=== PATIENT | male | born 1975 | race Caucasian/White ===

== ENCOUNTER → 2017-08-27 08:03 | Outpatient (CLI) | payer OTHER, SELFPAY | PROVIDERS: PCP Family Medicine; Visit Provider Internal Medicine | DX: R42 Dizziness and giddiness (principal); R53.83 Other fatigue; R07.9 Chest pain, unspecified; R06.00 Dyspnea, unspecified; R00.1 Bradycardia, unspecified; R40.0 Somnolence; R00.2 Palpitations | CPT/HCPCS: 93017 ==

== ENCOUNTER → 2018-05-05 11:30 | Outpatient (CLI) | payer OTHER, SELFPAY ==
--- NOTE | 2018-05-05 11:34 | XR_ITS ---
XR chest 2V HISTORY: ITS.REASON: COUGH ORDERING PHYSICIAN: Sofy Maldonado PATIENT AGE: 42 years COMPARISON: 05/05/2017 FINDINGS: There is a loop recorder device present. The cardiomediastinal silhouette and pulmonary vascularity are within normal limits. The lungs are clear without infiltrates, suspicious nodules, or pleural effusions. No acute bony abnormalities. IMPRESSION: Negative chest, no acute finding
== END ==
PROVIDERS: PCP Family Medicine; Visit Provider Nurse Practitioner
DX: R05 Cough (principal)
CPT/HCPCS: 71046

== ENCOUNTER → 2019-01-13 14:04 | Outpatient (CLI) | payer OTHER, SELFPAY ==
--- NOTE | 2019-01-13 14:06 | CA_ITS ---
PROCEDURE: 2-D M-mode and color Doppler study INDICATIONS FOR THE TEST: Chest pain COPD Heart Murmur Tobacco Smoking+ Palpitations+ Fatigue Syncope Edema Hypertension Diabetes Mellitus Rheumatic Fever SOB+WING+Obesity Hyperlipidemia Family History HD Additional History bradycardia, loop recorder, ablation x 4, known ASD bubble study ordered PATIENT INFORMATION HEIGHT: 69 WEIGHT:137 GENDER: Male B/P: 118/77 2-D/M-MODE INTERPRETATION: 2-D MEASUREMENTS OBSERVED VALUES IN CMS Right Ventricular Dimension (RVDd) 1.5 Interventricular Septum (Thickness)(IVsd) 0.6 Left Ventricular Internal Dimensions(LVIDd) 5.7 Left Ventricular Posterior Wall (Thickness)(LVPWd) 0.6 Aortic Root 2.7 Aortic Cusp Separation 2.0 Left Atrial Dimensions (LAD) 2.9 2D 1. Left atrium is normal size, left ventricle is normal size, there is no concentric left ventricular hypertrophy, visually estimated ejection fraction 55% with no regional wall motion abnormality. 2. The right atrium and right ventricle are normal size and contractility. 3. The aortic valve is minimally thickened and fibrosed. 4. The intra-atrial septum is mobile. 5. The mitral and tricuspid valvular grossly normal. 6. The pulmonic valve is poorly visualized. 7. No significant pericardial effusion noted. DOPPLER INTERROGATION: Doppler interrogation of the aortic, mitral and tricuspid valvular presence of mild mitral and tricuspid regurgitation, tricuspid regurgitation jet velocity for calculation of the right ventricular systolic pressure, agitated saline contrast study identifies right to left shunt, this is likely secondary to patent foramen ovale, if clinically indicated transesophageal echocardiogram is recommended for further evaluation of the intra-atrial septum. CONCLUSION: 1. Normal left ventricular size, preserved left ventricular systolic function, visually estimated ejection fraction 55% with no regional wall motion abnormality, diastolic parameters are within normal range. 2. Mild mitral and tricuspid regurgitation. 3. The intra-atrial septum is mobile, agitated 7 contrast study identifies right to left shunt, this is likely secondary to patent foramen ovale, if clinically indicated transesophageal echocardiogram is recommended for further evaluation of the intra-atrial septum. 4. No significant pericardial effusion noted.
== END ==
PROVIDERS: PCP Family Medicine; Visit Provider Urology
DX: R00.1 Bradycardia, unspecified (principal); R00.2 Palpitations
CPT/HCPCS: 93306

== ENCOUNTER → 2019-04-27 10:59 | Outpatient (CLI) | payer OTHER, SELFPAY ==
--- NOTE | 2019-04-27 11:03 | XR_ITS ---
PROCEDURE: XR FOOT WT BEARING RT 3V CLINICAL INDICATION: Pain. COMPARISON: No exams were available for comparison FINDINGS: First MTP joint shows moderate hallux valgus angulation without erosions. There is some medial prominence of soft tissues without radiopaque foreign body. The remainder of the right foot is normal. IMPRESSION: No acute process. First MTP joint hallux valgus angulation with some medial soft tissue prominence perhaps edema. There are no erosions to suggest gout at this time although correlate clinically. Dictated by: Edwardo Pino 04/27/2019 12:16 Electronically signed by Edwardo Pino in [place] 04/27/2019 12:16
--- NOTE | 2019-04-27 11:03 | XR_ITS ---
PROCEDURE: XR FOOT WT BEARING LT 3V CLINICAL INDICATION: pain COMPARISON: No exams were available for comparison FINDINGS: No fracture or dislocation. No lytic or blastic change. There is normal mineralization. The joint spaces are well-preserved. No significant degenerative/arthritic changes. No erosive changes evident. Other findings:None. IMPRESSION: No acute findings. Dictated by: Edwardo Pino 04/27/2019 12:17 Electronically signed by Edwardo Pino in [facility] 04/27/2019 12:17
== END ==
PROVIDERS: PCP Family Medicine; Visit Provider Podiatrist
DX: M79.672 Pain in left foot (principal); M79.671 Pain in right foot
CPT/HCPCS: 73630

== ENCOUNTER → 2019-08-20 16:31 | Outpatient (CLI) | payer OTHER, SELFPAY ==
--- NOTE | 2019-08-20 16:38 | XR_ITS ---
PROCEDURE: XR CHEST 2V CLINICAL HISTORY: 1ST [facility] EXOSTOSIS COMPARISON: CXR CHEST(2 VIEWS-NOT PORTABLE) from 10/03/2016 CXR CHEST(2 VIEWS-NOT PORTABLE) from 05/05/2017 CXR2V XR chest 2V from 05/05/2018 FINDINGS: The cardiomediastinal silhouette and pulmonary vascularity are within normal limits. The lungs are clear without infiltrates, suspicious nodules, or pleural effusions. No acute bony abnormalities. IMPRESSION: No acute findings. Dictated by: Alexys Moore 08/20/2019 18:12 Electronically signed by Alexys Moore in [facility] 08/20/2019 18:12
--- NOTE | 2019-08-20 16:38 | XR_ITS ---
PROCEDURE: XR FOOT WT BEARING RT 3V CLINICAL INDICATION: 1ST [facility] EXOSTOSIS COMPARISON: XR FOOT WT BEARING LT 3V from 04/27/2019 XR FOOT WT BEARING RT 3V from 04/27/2019 FINDINGS: No fracture or dislocation. No lytic or blastic change. There is normal mineralization. There is mild hallux valgus deformity and osteoarthritis at the 1st metatarsophalangeal joint. There is prominence of overlying soft tissues medial to the 1st metatarsal. There is no significant bony exostosis. Other findings:There is a sclerotic focus in the posterior calcaneus likely a benign bone island. IMPRESSION: Hallux valgus deformity with osteoarthritis and overlying focal soft tissue prominence. Dictated by: Alexys Moore 08/20/2019 18:11 Electronically signed by Alexys Moore in [place] 08/20/2019 18:11
--- NOTE | 2019-08-20 17:21 | ECG_ITS ---
APPROVED REPORT Exam: Resting ECG HR:53 bpm ECG Measurements Heart Rate 53 AXES OK 122 P 83 QRSd 82 QRS 87 QT 400 T 72 QTc 375 <Conclusion> Sinus bradycardia with sinus arrhythmia Minimal voltage criteria for LVH, may be normal variant Borderline ECG Electronically signed by : J Luis John, 08/22/2019 19:09:24
[2019-08-20 17:41] LABS: Basophils # 0.1 K/mm3 (0-0.2); Eosinophils # 0.3 K/mm3 (0.0-0.4); Eosinophils % 4.6 % (0.1-12.0); Hematocrit 45.3 % (42.0-52.0); Hemoglobin 15.4 g/dL (14.1-18.0); Lymphocytes # 2.7 K/mm3 (0.7-4.5); Lymphocytes % 38.3 % (10-50); Mean Corpuscular HGB Conc 33.9 g/dL (31.8-35.4); Mean Corpuscular Hemoglobin 29.4 pg (27.0-31.2); Mean Corpuscular Volume 86.8 fl (80-94); Mean Platelet Volume 7.2 fl (7.4-10.4); Monocytes # 0.3 K/mm3 (0.1-1.0); Monocytes % 4.1 % (1.7-9.3); Neutrophils # 3.7 K/mm3 (1.8-7.8); Platelet Count 312 K/mm3 (142-424); Red Blood Count 5.22 M/mm3 (4.60-6.20); Red Cell Distribution Width 12.6 % (11.5-17.5); White Blood Count 7.1 K/mm3 (4.8-10.8)
[2019-08-20 18:30] LABS: Alanine Aminotransferase 18 U/L (12-78); Albumin Level 4.4 gm/dL (3.4-5.0); Albumin/Globulin Ratio 1.5 (1.1-1.8); Alkaline Phosphatase 77 U/L (46-116); Anion Gap 16.2 mEq/L (5-15); Aspartate Amino Transferase 24 U/L (15-37); Bilirubin,Total 0.5 mg/dL (0.2-1.0); Blood Urea Nitrogen 14 mg/dL (7-18); Calcium 9.4 mg/dL (8.5-10.1); Carbon Dioxide 25 mmol/L (21.0-32.0); Chloride 103 mmol/L (98-107); Creatinine,Serum 0.94 mg/dL (0.70-1.30); Estimated Glomerular Filt Rate 88 ml/min (>60); GFR (African American) 106 ML/MIN (>60); Globulin 2.9 gm/dl (1.3-3.2); Glucose 91 mg/dL (74-106); Potassium 4.2 mmoL/L (3.5-5.1); Sodium 140 mmol/L (136-145); Total Protein,Serum 7.3 gm/dL (6.4-8.2)
[2019-08-22 09:45] LABS: Vitamin D 25 Hydroxy 22.3 ng/mL (30.0-100.0)
[2019-08-29 17:03] LABS: Nicotine 15.3
[2019-08-29 17:04] LABS: Cotinine 385.5
== END ==
LOC: RAD 16:33
PROVIDERS: PCP Family Medicine; Visit Provider Podiatrist
DX: Z01.818 Encounter for other preprocedural examination (principal); M79.671 Pain in right foot; M20.11 Hallux valgus (acquired), right foot; M89.9 Disorder of bone, unspecified
CPT/HCPCS: 36415; 71046; 73630; 80053; 80323; 82652; 85025; 93005

== ENCOUNTER → 2019-09-29 09:30 | Outpatient (CLI) | payer BC, SELFPAY ==
--- NOTE | 2019-09-29 09:34 | XR_ITS ---
PROCEDURE: XR FOOT WT BEARING RT 3V CLINICAL INDICATION: post-op Follow-up surgery COMPARISON: XR FOOT WT BEARING LT 3V from 04/27/2019 XR FOOT WT BEARING RT 3V from 08/20/2019 XR FOOT RT MIN 3V from 08/26/2019 XR FOOT RT 2V from 08/26/2019 FINDINGS: The splint has been removed. Status post 1st metatarsal tarsal fusion with medial bone plate. There is an oblique screw through the medial cuneiform head of 1st metatarsal into the base of the 2nd metatarsal. There is some faint lucency around the screw at the 2nd metatarsal. This is of questionable clinical significance. An additional oblique screw is present into the 1st metatarsal tarsal region Other findings:None. IMPRESSION: Good alignment status post midfoot fusion as described above. There is faint lucency around the distal aspect of the screw within the 2nd metatarsal. Follow-up recommended Dictated by: Arthur Wong MD 09/29/2019 11:40 Electronically signed by Arthur Wong MD in [place] 09/29/2019 11:40
== END ==
PROVIDERS: PCP Family Medicine; Visit Provider Podiatrist
DX: Z98.890 Other specified postprocedural states (principal); M20.11 Hallux valgus (acquired), right foot
CPT/HCPCS: 73630

== ENCOUNTER 2019-10-07 14:57 | Outpatient (RCR) | payer BC, SELFPAY ==
--- NOTE | 2019-10-07 15:45 | HMH.PTOPEV ---
PT Outpatient Evaluation Rehab PT Outpatient Evaluation Start: 10/07/19 15:20 Freq: Status: Active Protocol: Document 10/07/19 15:20 ADONISANDREW (Rec: 10/07/19 15:45 SHANELLEANSHU [id number]) Electronically Signed By Kalen Rogers, PT 10/07/19 15:20 Outpatient Therapy Subjective History Subjective History This is the initial Physical Therapy evaluation for Wesley Joyce. Pt is a 44 y/ o male referred to PT s/p R foot bunionectomy and fore- foot fusion. Pt reports sx was 08/26/19. Pt reports he was allowed to start FWB in boot last week. Pt states DPM has allowed him to switch between CAM boot and regular shoe at tolerance. Chief Complaint Pain,Stiff Symptom Type Ache,Throb Symptoms Relieved By Rest/Positioning Symptoms Aggravated By Standing,Physical Activity, Walking Prior Functional Limitations None,Sleeping Current Functional Limitations Recreation Activity,Walking, Stairs Symptom Description Intermittent Level of pain today (0-10) 2 Pain scale - at its best (0-10) 0 Pain scale - at its worst (0-10) 6 Ankle/Foot Eval Gait Observation General Gait Pattern Observation Antalgic Gait Palpation Tenderness right Ankle/Foot Palpation Findings Tenderness Ankle/Foot Palpation Overall Comment TTP along incision and forefoot ROM Ankle/Foot Dorsiflexion w/Knee Extended 5 Active Range Motion (degrees) Ankle/Foot Plantar Flexion Active Range 25 of Motion (degrees) Ankle/Foot Eversion Active Range of 10 Motion (degrees) Ankle/Foot Inversion Active Range of 20 Motion (degrees) Outpatient Therapy Assessment Impairments Problems/Impairmments Palpation Tenderness,Impaired Range of Motion,Impaired Strength,Impaired Gait Pattern ,Impaired Walking,Impaired Standing,Impaired Stair Climbing,Impaired Stepping on Uneven Surface,Impaired Recreational Activities, Impaired Work Activities, Subjective C/O Pain,Impaired Self Care/Self Management Prognosis Rehab Potential Fair Clinical Impression Consistent with Diagnosis Yes Short Term Goals
== END 2019-10-07 15:45 | disposition home or self-care (01) ==
LOC: PT 14:57
PROVIDERS: PCP Family Medicine; Visit Provider Podiatrist
DX: M20.11 Hallux valgus (acquired), right foot (principal); Z98.890 Other specified postprocedural states; T81.49XA Infection following a procedure, other surgical site, initial encounter
CPT/HCPCS: 97163

== ENCOUNTER → 2019-11-03 09:09 | Outpatient (CLI) | payer BC, SELFPAY ==
--- NOTE | 2019-11-03 09:14 | XR_ITS ---
PROCEDURE: XR FOOT WT BEARING RT 3V CLINICAL INDICATION: post-op The follow-up surgery COMPARISON: XR FOOT WT BEARING RT 3V from 04/27/2019 FINDINGS: Prior fusion of the 1st metacarpal-carpal joint as previously described. No change in the bony hardware with good alignment. Lucency once again noted at the oblique screw within the base of the 2nd metatarsal not significantly changed. There is also a lucency involving the mid to distal 2nd metatarsal shaft and could be due a fracture The joint spaces are well-preserved. No significant degenerative/arthritic changes. No erosive changes evident. Other findings:None. IMPRESSION: 1. No change status post 1st metatarsal tarsal fusion 2. Faint lucency at the junction of the mid distal 3rd of the 2nd metatarsal suggesting a nondisplaced fracture Dictated by: Arthur Wong MD 11/03/2019 11:07 Electronically signed by Arthur Wong MD in [place] 11/03/2019 11:07
== END ==
PROVIDERS: PCP Family Medicine; Visit Provider Podiatrist
DX: S93.491D Sprain of other ligament of right ankle, subsequent encounter (principal); M25.571 Pain in right ankle and joints of right foot; Z98.890 Other specified postprocedural states
CPT/HCPCS: 73630

== ENCOUNTER → 2020-01-15 12:48 | Outpatient (CLI) | payer OTHER, SELFPAY | PROVIDERS: PCP Family Medicine; Visit Provider Internal Medicine | DX: R42 Dizziness and giddiness (principal); R06.00 Dyspnea, unspecified; R00.1 Bradycardia, unspecified; M25.571 Pain in right ankle and joints of right foot; S93.491A Sprain of other ligament of right ankle, initial encounter; Z72.0 Tobacco use | CPT/HCPCS: 93306 ==

== ENCOUNTER 2020-08-08 11:19 | Day surgery (SDC) | payer OTHER, SELFPAY ==
[2020-08-08 11:35] VITALS: BMI 21.2
[2020-08-08 11:37] VITALS: RESP 20; TEMP 36.6; O2SAT 98
[2020-08-08 12:00] VITALS: PULSE 50
[2020-08-08 12:35] VITALS: BP 144/79; PULSE 50; RESP 20
--- NOTE | 2020-08-08 12:50 | P.PCN_ITS ---
[facility] Loop Recorder Date: 08/08/20 Time: 12:00 Procedure Performed:: Removed existing [employer] loop recorder due to end-of-life. Implanted [employer] loop recorder Indication:: Symptomatic Bradycardia after ablation for Atrial fibrillation Atrial fibrillation monitoring Technique:: Patient was brought to the cardiac Operations Chief. After informed consent obtained, 1% lidocaine with epinephrine was used to anesthetize the site along the left anterior aspect of the chest near the sternal border. Using a scalpel, the existing Medtronic device was dissected and exposed and using forceps the device was subsequently removed. Using the supplied preloaded apparatus, the [employer] loop recorder was placed subcutaneously without difficulty. Following the deployment of the loop recorder interrogation of the device was performed to ensure appropriate voltage was being detected (1.14 mV). Once this was verified, Steri-Strips were placed over the incision and the patient was prepped to discharge home. Patient tolerated the procedure well with minimal discomfort. Impression:: Successful removal of existing loop recorder due to end-of-life and implantation of [employer] loop recorder Serial Number:: [id number] Plan:: Routine postop care
== END 2020-08-08 12:44 | disposition home or self-care (01) ==
LOC: CATHLAB 11:21
PROVIDERS: PCP Family Medicine; Visit Provider Internal Medicine
DX: Z45.09 Encounter for adjustment and management of other cardiac device (principal); I48.0 Paroxysmal atrial fibrillation; Z72.0 Tobacco use; R00.1 Bradycardia, unspecified; Z79.899 Other long term (current) drug therapy
CPT/HCPCS: 33285

== ENCOUNTER 2020-08-24 09:53 | Day surgery (SDC) | payer OTHER, SELFPAY ==
[2020-08-24 10:13] VITALS: BMI 21.1
[2020-08-24 10:31] VITALS: BP 126/76; PULSE 52; RESP 13; TEMP 36.6; O2SAT 96
[2020-08-24 10:39] VITALS: PULSE 54
[2020-08-24 11:06] VITALS: BP 157/96; PULSE 62; RESP 12; O2SAT 97
[2020-08-24 11:09] VITALS: PULSE 67
--- NOTE | 2020-08-24 15:28 | P.PCN_ITS ---
[facility] Loop Recorder Date: 08/24/20 Time: 10:45 Procedure Performed:: Removed existing [employer] loop recorder due to exposed device through the incision. Implanted new [employer] loop recorder Indication:: Exposed loop recorder Symptomatic Bradycardia after ablation for Atrial fibrillation Atrial fibrillation monitoring Technique:: Patient was brought to the cardiac Optics Engineer. After informed consent obtained, 1% lidocaine with epinephrine was used to anesthetize the site along the left anterior aspect of the chest near the sternal border. Using a scalpel, the existing [employer] device was dissected and exposed, then using forceps the device was subsequently removed. Using the supplied preloaded apparatus, the [employer] loop recorder was placed subcutaneously without difficulty. Following the deployment of the loop recorder interrogation of the device was performed to ensure appropriate voltage was being detected. Once this was verified, Steri-Strips were placed over the incision and the patient w as prepped to discharge home. Patient tolerated the procedure well with minimal discomfort. Impression:: Successful removal of existing loop recorder due to exposure of the device through opened incision and implantation of new [employer] loop recorder. Serial Number:: [id number] Plan:: Routine postop care
== END 2020-08-24 11:10 ==
LOC: CATHLAB 09:54
PROVIDERS: PCP Family Medicine; Visit Provider Internal Medicine
DX: Z45.09 Encounter for adjustment and management of other cardiac device (principal); R00.1 Bradycardia, unspecified; I48.0 Paroxysmal atrial fibrillation; Z72.0 Tobacco use
CPT/HCPCS: 33285

== ENCOUNTER → 2020-09-08 11:20 | Outpatient (CLI) | payer OTHER, SELFPAY ==
--- NOTE | 2020-09-08 11:23 | XR_ITS ---
PROCEDURE: XR FOOT WT BEARING RT 3V CLINICAL INDICATION: pain COMPARISON: CR XR FOOT RT MIN 3V from 08/26/2019 CR XR FOOT RT 2V from 08/26/2019 CR XR FOOT WT BEARING RT 3V from 09/29/2019 CR XR FOOT WT BEARING RT 3V from 11/03/2019 FINDINGS: Mild hallux valgus which appears worse. Cortical regularity involves the distal and lateral aspect of the 1st metatarsal and may be due to prior bunionectomy. Soft tissue swelling is present at this region. Prior fusion of the 1st tarsometatarsal junction/Lapidus procedure. The oblique screw coursing at the base of the 1st metatarsal into the base of the 2nd metatarsal is withdrawing by approximately 6 mm and it is no longer flush with the bone. At the distal aspect of the screw there is a zone of lucency consistent with loosening. IMPRESSION: Prior Lapidus bunionectomy with hallux valgus Loosening of the screw between the base of the 1st and 2nd metatarsals Dictated by: Arthur Wong MD 09/09/2020 05:47 Arthur Wong MD in [place] 09/09/2020 05:47
== END ==
LOC: RAD 11:22
PROVIDERS: PCP Family Medicine; Visit Provider Podiatrist
DX: M79.673 Pain in unspecified foot (principal)
CPT/HCPCS: 73630

== ENCOUNTER → 2020-09-12 13:33 | Outpatient (CLI) | payer OTHER, SELFPAY ==
--- NOTE | 2020-09-12 13:33 | CT_ITS ---
PROCEDURE: CT FOOT RT WO CON CLINICAL HISTORY: pre op planning, fracture eval, hardware failure COMPARISON: CR XR FOOT WT BEARING RT 3V from 04/27/2019 CR XR FOOT RT MIN 3V from 08/26/2019 CR XR FOOT RT 2V from 08/26/2019 CR XR FOOT WT BEARING RT 3V from 11/03/2019 CR XR FOOT WT BEARING RT 3V from 09/08/2020 TECHNIQUE: Axial images obtained with sagittal and coronal reformats. All CT scans at the facility use one or more dose reduction, viz: automated exposure control, ma/kV adjustment per patient size (including targeted exams where dose is matched to indication, i.e. head), or iterative reconstruction technique. 3D rendering was performed. FINDINGS: There is redemonstration of fixation hardware across the medial cuneiform to the base of the 1st metatarsal. The oblique screw which projects from posterior medially projects through the lateral cortex of the base of the 1st metatarsal and erodes bone at the base of the 2nd metatarsal. Of the fixation screw head is from the underlying bone by approximately 6 millimeters as shown on recent x-ray. There is complete bony fusion across the medial cuneiform to the base of the 1st metatarsal. There is mild 1st metatarsal phalangeal hallux valgus. The there are scattered benign bone islands. IMPRESSION: Complete bony fusion across the tarsal metatarsal joint. Oblique screw displaced medially with an erosion at the tip within the base of the 2nd metatarsal. Dictated by: Eileen Cuenca 09/12/2020 19:29 Eileen Cuenca in [place] 09/12/2020 19:29
--- NOTE | 2020-09-12 14:08 | XR_ITS ---
PROCEDURE: XR CHEST 2V CLINICAL HISTORY: NICOTINE USE Preop clearance COMPARISON: CR CXR CHEST(2 VIEWS-NOT PORTABLE) from 05/05/2017 CR CXR2V XR chest 2V from 05/05/2018 CR XR CHEST 2V from 08/20/2019 FINDINGS: The cardiomediastinal silhouette and pulmonary vascularity are within normal limits. The lungs are clear without infiltrates, suspicious nodules, or pleural effusions. No acute bony abnormalities. The cardiac loop recorder projects within the cardiac apex. IMPRESSION: No acute findings. Dictated by: Eileen Cuenca 09/12/2020 19:08 Eileen Cuenca in [place] 09/12/2020 19:08
--- NOTE | 2020-09-12 14:41 | ECG_ITS ---
APPROVED REPORT Exam: Resting ECG HR:57 bpm ECG Measurements Heart Rate 57 AXES LA 118 P 85 QRSd 92 QRS 86 QT 398 T 66 QTc 387 Conclusion Sinus bradycardia Otherwise normal ECG Electronically signed by : J Luis John, 09/12/2020 17:36:43
[2020-09-12 15:12] LABS: Basophils % 0.6 % (0.1-2.0); Eosinophils # 0.3 K/mm3 (0.0-0.4); Eosinophils % 4.2 % (0.1-12.0); Hematocrit 44.7 % (42.0-52.0); Hemoglobin 14.9 g/dL (14.1-18.0); Lymphocytes # 2.5 K/mm3 (0.7-4.5); Lymphocytes % 34.7 % (10-50); Mean Corpuscular HGB Conc 33.4 g/dL (31.8-35.4); Mean Corpuscular Hemoglobin 28.9 pg (27.0-31.2); Mean Corpuscular Volume 86.4 fl (80-94); Mean Platelet Volume 7.1 fl (7.4-10.4); Monocytes # 0.3 K/mm3 (0.1-1.0); Monocytes % 4.8 % (1.7-9.3); Neutrophils % 55.7 % (37.0-80.0); Platelet Count 312 K/mm3 (142-424); Red Blood Count 5.17 M/mm3 (4.60-6.20); Red Cell Distribution Width 13.6 % (11.5-17.5); White Blood Count 7.2 K/mm3 (4.8-10.8)
[2020-09-12 15:50] LABS: Chloride 105 mmol/L (98-107); Potassium 4.4 mmoL/L (3.5-5.1); Sodium 139 mmol/L (136-145)
[2020-09-12 15:53] LABS: Alanine Aminotransferase 21 U/L (12-78); Albumin Level 4.8 g/dl (3.5-5.0); Albumin/Globulin Ratio 1.5 (1.1-1.8); Alkaline Phosphatase 85 U/L (38-126); Anion Gap 10.4 mEq/L (5-15); Aspartate Amino Transferase 38 U/L (17-59); Bilirubin,Total 0.5 mg/dl (0.2-1.3); Blood Urea Nitrogen 14 mg/dl (9-20); Carbon Dioxide 28 mmol/L (22.0-30.0); Estimated Glomerular Filt Rate 92 ml/min (>60); GFR (African American) 111 ML/MIN (>60); Globulin 3.1 g/dL (1.3-3.2); Total Protein,Serum 7.9 g/dl (6.3-8.2)
[2020-09-12 15:54] LABS: Calcium 10.3 mg/dl (8.4-10.2); Glucose 95 mg/dl (74-100)
[2020-09-12 15:55] LABS: Erythrocyte Sedimentation Rate 7 mm/hr (0-15)
[2020-09-12 15:59] LABS: C-Reactive Protein 2.1 mg/L (0-4)
[2020-09-12 16:10] LABS: 25-OH Vitamin D, Total 27.5 ng/mL (30-100)
== END ==
PROVIDERS: PCP Family Medicine; Visit Provider Podiatrist
DX: M79.671 Pain in right foot (principal); T84.84XA Pain due to internal orthopedic prosthetic devices, implants and grafts, initial encounter; T84.9XXA Unspecified complication of internal orthopedic prosthetic device, implant and graft, initial encounter; Z20.818 Contact with and (suspected) exposure to other bacterial communicable diseases; E55.9 Vitamin D deficiency, unspecified
CPT/HCPCS: 36415; 71046; 73700; 80053; 80323; 82306; 85025; 85651; 86140; 93005

== ENCOUNTER → 2020-09-21 11:30 | Outpatient (CLI) | payer OTHER, SELFPAY ==
[2020-09-21 13:48] LABS: Coronavirus 19 IgG Antibody Negative (Negative); Coronavirus 19 IgM Antibody Negative (Negative)
== END ==
PROVIDERS: Visit Provider Podiatrist
DX: Z01.818 Encounter for other preprocedural examination (principal); Z20.822 Contact with and (suspected) exposure to COVID-19; M79.671 Pain in right foot; T84.84XD Pain due to internal orthopedic prosthetic devices, implants and grafts, subsequent encounter
CPT/HCPCS: 36415; 86328

== ENCOUNTER 2020-09-23 08:10 | Day surgery (SDC) | payer OTHER, SELFPAY ==
[2020-09-20 11:00] VITALS: BMI 19.8
[2020-09-23] VITALS (11 sets, daily range): BP systolic 109–153; BP diastolic 52–90; PULSE 48–62; RESP 12–18; TEMP 36.4–43; O2SAT 96–99
--- NOTE | 2020-09-23 09:08 | HMH.ANESCL ---
[facility] Anesthesia Checklist - Patient Identification Patient Identification: Arm Band - Structural Data Admitted From: Home Planned Operative Procedure/s: right foot hardware removal Consent for Planned Operative Procedure(s) Verified: Yes Verified Documents: Surgical Consent, History and Physical - NPO Status Verified Time NPO: 00:00 - Additional verifications Anesthesia Reactions: No Hx Blood Transfusions: No Blood Transfusion Reaction: No - Airway Assessment C-Spine Mobility Assessed: Yes (mp2) TMJ Mobility Assessed: Yes Dentition: Good Dentition - Neurological Assessment Level of Consciousness: Awake, Alert - Anesthesia Plan Anesthesia Risk discussed: Yes Anesthesia Plan: Verified ASA Class: II Anesthesia Type: General w/block (Popliteal/saphenous. Risks/benefits of nerve block explained. Pt verbalizes understanding) [facility] History I have reviewed the patient's past medical history: Yes Medical History: Reports:: Atrial Fibrillation, Depression, Hyperlipidemia, Palpitations, Valvular Heart Disease Denies:: Cancer, Diabetes Mellitus Type 1, Diabetes Mellitus Type 2, Internal Pacemaker, MRSA, Seizures *Have you ever received a pneumonia vaccine?: No *Have you received a flu vaccine this season?: No Other Medical History: Denies: Blood Transfusion Reaction Anesthesia experience/problems:: nac Laterality Cases: Bilateral: Other Other Surgeries: Yes: Other. No: Pacemaker Amputation: No Fractures: Yes - *Social History Last grade of school completed: High school graduate Smoking Status: Current every day smoker Tobacco Type: cigarettes # Packs/Day (cigarettes): 1 Alcohol Intake: never Alcohol Intake Frequency:: other Substance Use Type: denies use *Occupational Status:: employed Housing: house Household Members: family *Travel in the last 8 weeks: None - Psychiatric History Pschychiatric History:: Reports:: Depression Family Hx:: No significant family history
--- NOTE | 2020-09-23 10:30 | HMH.OPNOTE ---
Date of procedure: 09/23/20 Pre-op Diagnosis:: 1. Right hallux valgus 2. Right hallux interphalangus 3. Right foot s/p lapidus bunionectomy on 08/26/19 4. Right foot retained orthopedic hardware 5. Painful hardware, hardware failure Post-op Diagnosis:: Same Procedure performed:: 1. Right foot hardware removal 2. Right revision of Lapidus bunionectomy 3. Right dale osteotomy 4. Right application of injectable graft 5. Right application of posterior splint Surgeon:: Jayashree Don DPM UNDERWEAR CUTTER:: Gurjit Gomez Anesthesia: GETA, regional (right popliteal nerve block) Estimated blood loss (mL): 10 Clinical Note:: Patient is a 45-year-old male who presents with the start of recurrent right foot bunion. He had surgery on 08/26/19, S/p Right lapidus bunionectomy, exostectomy, gastrocnemius recession. Postop course was relatively uneventful. Recent imaging, x-rays 3 views right foot weightbearing taken 08/29/2020, evaluated by myself. Images were compared from x-rays taken 11/03/19 compared 09/29/19, 08/26/19. X-rays show hardware intact but the medial screw is backing out from 2nd metatarsal base. Fusion site filling in with bone. Good alignment status post midfoot fusion. Incisions have healed. Patient reports no issues until June 2020. He states he noticed some swelling to the midfoot. He reports of the last month he noticed the 2 started leaning and can feel something hard . I explained that he is feeling the head of the screw which will need to be removed. We discussed reasons for hardware failure. I explained that although on the x-ray a screw does not appear to be broken, there may be some fracturing. I explained hardware failure can be due to: Infection, delayed or nonunion as well as trauma and fracturing at the fusion site. We discussed surgery planning visit for hardware removal and revision of the Lapidus bunionectomy. Recommend patient use the bunion sleeve. Ice, elevate and Motrin for pain and swelling. Call office with any questions or concerns. I recommended a CT scan to evaluate for fusion vs infection. CT right foot indications: History of right Lapidus bunionectomy 08/26/2019. Patient now has hardware failure and the screw backing out with lucency noted at the second metatarsal base. CT was to evaluate for fracture, partial or nonunion of the arthrodesis site. The patient has tried modification of shoe gear, taping, strapping, inserts, ice elevation, NSAIDs. After a long discussion with the patient in regards to the conservative versus surgical treatment for the bunion deformity, the patient has elected to proceed with surgery because they have failed conservative treatment and failed surgery and continue to have pain and worsening symptoms affecting daily activities. The patient has been instructed on the planned procedure, all risk versus benefits of the procedure to include bleeding, infection, nerve and blood vessel damage, need for further surgery, delay in healing of soft tissue or bone, failure of bones to heal, non-union, mal-union, prolonged pain and recovery, prolonged swelling, CRPS/RSD, DVT and anesthetic complications. No guarantees were given. All questions fully answered. The patient verbalized understanding and agreed to proceed with surgery. Written consent was obtained. Medical clearance per PCP and cardiac clearance granted. Necessary labs and pre-op testing ordered: CBC, CMP, EKG, CXR. Rx for Fairchance 7.5/325 # 28, Zofran 4mg, Motrin 800mg # 60. Operative findings:: Right foot screw backing out of the medial second metatarsal base. Palpable head noted to the medial first metatarsal. No malodor, drainage or purulence noted. No signs of infection. First metatarsal cuneiform joint fusion solid with no evidence of malunion or nonunion. Bunion reduced and refixated. Hallux interphalangeus reduced. Operative note:: On this date and time the patient was deemed an appropriate surgical candidate. With informed consent signed, patient given pre
--- NOTE | 2020-09-23 12:40 | HMH.ANESI ---
[facility] Anesthesia Record Part I Intake, IV Amount: 1,500 Estimated blood loss (mL): 0 Urine output (mL): 0 Blood Pressure: 117/75 SaO2: 96 Pulse Rate: 62 Respiratory Rate: 12 Temperature: 98.6 F Patient is:: Awake, Stable Stable to PACU at:: 12:35
--- NOTE | 2020-09-23 12:45 | XR_ITS ---
PROCEDURE: XR FOOT RT MIN 3V CLINICAL INDICATION: Post op bunion Follow-up surgery COMPARISON: CR XR FOOT WT BEARING RT 3V from 09/29/2019 CR XR FOOT WT BEARING RT 3V from 11/03/2019 CR XR FOOT WT BEARING RT 3V from 09/08/2020 CR XR FOOT RT 2V from 09/23/2020 FINDINGS: There is a splint in place. Status post 1st and 2nd metatarsal tarsal fusion. There appears to be 2 new transverse screws at the base of the 1st metatarsal extending into the proximal aspect of the 2nd and even 3rd metatarsal. There is now a staple which is been placed at the proximal aspect of the proximal phalanx of the great toe.. . Posterior splint is in place. C-arm was utilized for placement the above mention prosthesis. IMPRESSION: Good alignment status post 1st and 2nd metatarsal tarsal fusion and stable at the base of the proximal phalanx of the great toe Dictated by: Arthur Wong MD 09/23/2020 15:23 Arthur Wong MD in [place] 09/23/2020 15:23
--- NOTE | 2020-09-23 16:45 | SUR.PHASEII ---
THIS RN FORGOT TO SEND DISHCARGE FOLDER HOME WITH PT AT DISCHARGE. CALL TO PT'S AND LEFT MESSAGE WITH FOLLOW UP APPT AND REMINDERS OF ALL IMPORTANT INSTRUCTIONS, LEFT CALL BACK NUMBER.
--- NOTE | 2020-09-26 11:06 | HMH.ANESII ---
[facility] Anesthesia Record Part II Discharge Time: 13:20 Destination: Surgical Day Care (OP Surgery) PACU nurse assessment reviewed?: Yes Patient Condition:: Good Anesthesia Complications:: None Swallowing reflex intact?: Yes Cyanosis?: No Blood Pressure: 120/77 Pulse Rate: 54 Temperature: 97.6 F Mental Status: Alert & Oriented Pain level:: 0 Nausea and/or vomitting:: None Intake, IV Amount: 0
[2020-09-26 11:07] VITALS: BP 120/77; PULSE 54; TEMP 36.4
== END 2020-09-23 14:10 | disposition home or self-care (01) ==
PROVIDERS: PCP Family Medicine; Visit Provider Podiatrist
PROC: (CPT 28298; principal; 2020-09-23 09:45)
DX: T84.84XA Pain due to internal orthopedic prosthetic devices, implants and grafts, initial encounter (principal); T84.213A Breakdown (mechanical) of internal fixation device of bones of foot and toes, initial encounter; M20.11 Hallux valgus (acquired), right foot
CPT/HCPCS: 28298; 73630; 87070; 87205; 96374; C1713; C1762; J2405

== ENCOUNTER → 2020-10-20 08:40 | Outpatient (CLI) | payer OTHER, SELFPAY ==
--- NOTE | 2020-10-20 08:45 | XR_ITS ---
PROCEDURE: XR FOOT WT BEARING RT 3V CLINICAL INDICATION: post-op Follow-up surgery COMPARISON: CR XR FOOT WT BEARING RT 3V from 11/03/2019 CR XR FOOT WT BEARING RT 3V from 09/08/2020 CR XR FOOT RT 2V from 09/23/2020 CR XR FOOT RT MIN 3V from 09/23/2020 FINDINGS: Postsurgical changes are present from 1st and 2nd metatarsal tarsal fusion with bony hardware in place not significantly changed. Stable at the 1st proximal phalanx is unchanged. The splint has been removed. There is good alignment. The joint spaces are well-preserved. No significant degenerative/arthritic changes. No erosive changes evident. Other findings:None. IMPRESSION: Postsurgical changes which are stable with good alignment Dictated by: Arthur Wong MD 10/20/2020 11:42 Arthur Wong MD in [place] 10/20/2020 11:42
== END ==
PROVIDERS: PCP Family Medicine; Visit Provider Podiatrist
DX: Z98.890 Other specified postprocedural states (principal); M79.671 Pain in right foot
CPT/HCPCS: 73630; 87070; 87077; 87186; 87205

== ENCOUNTER → 2020-10-20 17:08 | Outpatient (CLI) | payer OTHER, SELFPAY | PROVIDERS: Visit Provider Podiatrist | DX: M79.671 Pain in right foot (principal) | CPT/HCPCS: 87070; 87205 ==

== ENCOUNTER 2020-11-14 10:30 | Outpatient (RCR) | payer OTHER, SELFPAY ==
--- NOTE | 2020-11-03 08:44 | HMH.PTOPEV ---
PT Outpatient Evaluation Rehab PT Outpatient Evaluation Start: 11/03/20 08:31 Freq: Status: Active Protocol: Document 11/03/20 08:32 TEENA (Rec: 11/03/20 08:44 TEENA [id number]) Electronically Signed By Shad Padgett, PT 11/03/20 08:32 Outpatient Therapy Subjective History Subjective History Pt is 45 yowm who presents with post-op pain, stiffness, and edema S/P R 1st/2nd MT hardware removal and replacement performed 09/23/20 . He reports sharp pain with certain activity, but otherwise feeling better after surgery. He reports he had a screw backing out that needed to be replaced, after bunionectomy procedure ~ 1 yr ago. He reports no significant PMH. He also reports propping of the R foot helps decrease his pain. Chief Complaint Pain,Stiff Symptom Type Sharp Symptoms Relieved By Rest/Positioning Symptoms Aggravated By Standing,Walking Prior Functional Limitations None Current Functional Limitations Standing,Walking Symptom Description Activity Dependent Level of pain today (0-10) 0 Pain scale - at its worst (0-10) 8 Ankle/Foot Eval Gait Observation General Gait Pattern Observation Antalgic Gait ROM right Ankle/Foot Dorsiflexion w/Knee Extended 0-8 Active Range Motion (degrees) Ankle/Foot Plantar Flexion Active Range 0-40 of Motion (degrees) Ankle/Foot Eversion Active Range of 0-16 Motion (degrees) Ankle/Foot Inversion Active Range of 0-33 Motion (degrees) Great Toe Metatarsophalangeal Extension 0-10 Active Range Motion (degrees) Great Toe Metatarsophalangeal Flexion 0-15 Active Range of Motion (degrees) MMT Ankle Dorsiflexion Strength Grade 5 Normal Ankle Plantarflexion Strength Grade 5 Normal Foot Eversion Strength Grade 5 Normal Foot Inversion Strength Grade 5 Normal Outpatient Therapy Assessment Impairments Problems/Impairmments Palpation Tenderness,Impaired Range of Motion,Impaired Endurance,Impaired Gait Pattern,Impaired Walking, Impaired Standing,Impaired Recreational Activities, Increased Edema,Lymphedema Present,Subjective C/O Pain, Impaired Debbie
== END 2020-11-14 10:35 | disposition home or self-care (01) ==
LOC: PT 10:30
PROVIDERS: PCP Family Medicine; Visit Provider Podiatrist
DX: Z98.890 Other specified postprocedural states; M20.11 Hallux valgus (acquired), right foot
CPT/HCPCS: 97010; 97014; 97140; 97163; 97530; 97760; G0283

== ENCOUNTER → 2020-11-24 08:03 | Outpatient (CLI) | payer OTHER, SELFPAY ==
--- NOTE | 2020-11-24 08:06 | XR_ITS ---
PROCEDURE: XR FOOT WT BEARING RT 3V CLINICAL INDICATION: post-op Follow-up surgery COMPARISON: CR XR FOOT WT BEARING RT 3V from 09/08/2020 CR XR FOOT RT 2V from 09/23/2020 CR XR FOOT RT MIN 3V from 09/23/2020 CR XR FOOT WT BEARING RT 3V from 10/20/2020 FINDINGS: Bone plate is in place at the 1st metatarsal tarsal junction with screws also extending into the base of the 2nd metatarsal and 3rd metatarsal. There is good alignment. A small staple is present at the base of the proximal phalanx of the great toe medially unchanged. IMPRESSION: No change status post prior 1st tarsal metatarsal arthrodesis Dictated by: Arthur Wong MD 11/24/2020 08:30 Arthur Wong MD in [place] 11/24/2020 08:30
[2020-11-24 10:38] LABS: Basophils # 0.1 K/mm3 (0-0.2); Basophils % 0.8 % (0.1-2.0); Eosinophils # 0.4 K/mm3 (0.0-0.4); Eosinophils % 5.3 % (0.1-12.0); Hematocrit 47.4 % (42.0-52.0); Hemoglobin 15.2 g/dL (14.1-18.0); Lymphocytes # 2.8 K/mm3 (0.7-4.5); Lymphocytes % 37.9 % (10-50); Mean Corpuscular HGB Conc 32.1 g/dL (31.8-35.4); Mean Corpuscular Hemoglobin 28.5 pg (27.0-31.2); Mean Corpuscular Volume 88.8 fl (80-94); Mean Platelet Volume 6.6 fl (7.4-10.4); Monocytes # 0.4 K/mm3 (0.1-1.0); Monocytes % 5.6 % (1.7-9.3); Neutrophils # 3.8 K/mm3 (1.8-7.8); Neutrophils % 50.4 % (37.0-80.0); Platelet Count 368 K/mm3 (142-424); Red Blood Count 5.34 M/mm3 (4.60-6.20); Red Cell Distribution Width 13.6 % (11.5-17.5); White Blood Count 7.5 K/mm3 (4.8-10.8)
[2020-11-24 11:09] LABS: Chloride 106 mmol/L (98-107); Sodium 138 mmol/L (136-145)
[2020-11-24 11:10] LABS: Potassium 4.8 mmoL/L (3.5-5.1)
[2020-11-24 11:12] LABS: Alanine Aminotransferase 17 U/L (12-78); Albumin Level 4.6 g/dl (3.5-5.0); Albumin/Globulin Ratio 1.5 (1.1-1.8); Alkaline Phosphatase 109 U/L (38-126); Anion Gap 11.8 mEq/L (5-15); Aspartate Amino Transferase 27 U/L (17-59); Bilirubin,Total 0.6 mg/dl (0.2-1.3); Blood Urea Nitrogen 15 mg/dl (9-20); Carbon Dioxide 25 mmol/L (22.0-30.0); Estimated Glomerular Filt Rate 92 ml/min (>60); GFR (African American) 111 ML/MIN (>60); Total Protein,Serum 7.6 g/dl (6.3-8.2)
[2020-11-24 11:13] LABS: Glucose 95 mg/dl (74-100)
[2020-11-24 11:18] LABS: C-Reactive Protein 1.7 mg/L (0-4)
[2020-11-24 12:35] LABS: Erythrocyte Sedimentation Rate 8 mm/hr (0-15)
== END ==
PROVIDERS: PCP Family Medicine; Visit Provider Podiatrist
DX: Z98.890 Other specified postprocedural states (principal); T81.31XA Disruption of external operation (surgical) wound, not elsewhere classified, initial encounter; M79.671 Pain in right foot
CPT/HCPCS: 36415; 73630; 80053; 85025; 85651; 86140

== ENCOUNTER → 2021-01-05 07:43 | Outpatient (CLI) | payer OTHER, SELFPAY ==
--- NOTE | 2021-01-05 07:52 | XR_ITS ---
PROCEDURE: XR FOOT WT BEARING RT 3V CLINICAL INDICATION: POST-OP Follow-up surgery COMPARISON: CR XR FOOT WT BEARING RT 3V from 04/27/2019 CR XR FOOT RT 2V from 09/23/2020 CR XR FOOT RT MIN 3V from 09/23/2020 CR XR FOOT WT BEARING RT 3V from 10/20/2020 CR XR FOOT WT BEARING RT 3V from 11/24/2020 FINDINGS: Status post 1st tarsometatarsal arthrodesis with good alignment and no evidence of hardware failure. Stable once again noted at the base of the proximal phalanx of the great toe unchanged. The joint spaces are well-preserved. No significant degenerative/arthritic changes. No erosive changes evident. Other findings:None. IMPRESSION: No change with good alignment status post 1st metatarsal tarsal arthrodesis Dictated by: Arthur Wong MD 01/05/2021 10:40 Arthur Wong MD in [place] 01/05/2021 10:40
== END ==
PROVIDERS: PCP Family Medicine; Visit Provider Podiatrist
DX: Z98.890 Other specified postprocedural states (principal); M77.41 Metatarsalgia, right foot
CPT/HCPCS: 73630

== ENCOUNTER → 2021-03-28 12:47 | Outpatient (CLI) | payer OTHER, SELFPAY ==
--- NOTE | 2021-03-28 12:51 | XR_ITS ---
PROCEDURE: XR FOOT WT BEARING RT 3V CLINICAL INDICATION: postop views No COMPARISON: CR XR FOOT RT MIN 3V from 09/23/2020 CR XR FOOT WT BEARING RT 3V from 10/20/2020 CR XR FOOT WT BEARING RT 3V from 11/24/2020 CR XR FOOT WT BEARING RT 3V from 01/05/2021 FINDINGS: Status post 1st metatarsal tarsal and 1st and 2nd and 3rd metatarsal fusion. Bony hardware remains in place with good alignment. Zone of lucency noted at the tip of the screws within the base of the 3rd metatarsal similar to the previous exam. Metallic staple noted at the proximal aspect of the proximal phalanx of the 1st toe IMPRESSION: Overall no change status post midfoot fusion Dictated by: Arthur Wong MD 03/28/2021 14:39 Arthur Wong MD in [place] 03/28/2021 14:39
== END ==
PROVIDERS: PCP Family Medicine; Visit Provider Podiatrist
DX: Z98.890 Other specified postprocedural states (principal)
CPT/HCPCS: 73630

== ENCOUNTER → 2021-08-11 08:42 | Outpatient (CLI) | payer BC, SELFPAY ==
--- NOTE | 2021-08-11 08:51 | US_ITS ---
FINAL REPORT TECHNIQUE: Ultrasound images of the testicles were obtained bilaterally. Color Doppler images were obtained. CLINICAL HISTORY: left testicular pain FINDINGS: The right testicle measures 2.4 x 4.1 x 3.3 cm. The left testicle measures 2.3 x 4.0 x 3.3 cm. Normal blood flow is identified. No testicular masses seen. There is bilateral testicular microlithiasis which is nonspecific. There are small bilateral hydroceles. A left varicocele is identified. 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 If indicated, follow-up ultrasound may be helpful. Left varicocele. Reviewed, Interpreted and Dictated by Souleymane Burnett III, MD Transcribed by Radha Tobin Authenticated by Souleymane Burnett III, MD on 08/11/2021 01:31:54 PM [facility]
== END ==
LOC: RAD 08:43
PROVIDERS: PCP Family Medicine; Visit Provider Family Medicine
DX: N45.1 Epididymitis (principal)
CPT/HCPCS: 76870

== ENCOUNTER → 2022-08-17 14:01 | Outpatient (CLI) | payer BC, SELFPAY ==
--- NOTE | 2022-08-17 14:06 | XR_ITS ---
FINAL REPORT CLINICAL HISTORY: foot pain FINDINGS: AP, oblique and lateral views of the right foot were obtained. There is no prior exam for comparison. There is no acute fracture or dislocation. There are postoperative changes from fusion of the 1st tarsometatarsal joint. Lucency is seen surrounding the surgical screws which extend into the 2nd metatarsal base up to 4 mm, loosening is not excluded. There is mild hallux valgus of the 1st metatarsophalangeal. IMPRESSION: Possible loosening as above. Reviewed, Interpreted and Dictated by Cris Alejandro MD Transcribed by Radha Tobin Authenticated and [facility]
== END ==
PROVIDERS: PCP Family Medicine; Visit Provider Podiatrist
DX: M79.671 Pain in right foot (principal); Z98.890 Other specified postprocedural states
CPT/HCPCS: 73630

== ENCOUNTER → 2022-09-13 14:00 | Outpatient (CLI) | payer BC, SELFPAY ==
--- NOTE | 2022-09-13 14:01 | MR_ITS ---
FINAL REPORT TECHNIQUE: Multi planar MR imaging was performed through the right foot. CLINICAL HISTORY: foot pain. hx foot surgery in 2020. no injury or trauma FINDINGS: There is multi joint degenerative disease. Susceptibility artifact is seen along the medial midfoot related to hardware fusion of the 1st tarsometatarsal joint. Surgical staple is seen at the base of the 1st proximal phalanx. The remaining bone marrow signal intensity is normal without edema, fracture or pathologic marrow replacement. The Lisfranc joint is intact. The Lisfranc ligament is obscured by artifact. There is a small tibiotalar joint effusion. There is nonspecific edema in the sinus tarsi. The flexor and extensor tendons to the toes are intact. The Achilles tendon is intact. The plantar fascia is normal. There is no acute soft tissue abnormality. IMPRESSION: Postoperative change of the medial med foot. Nonspecific edema in the sinus tarsi, sinus tarsi syndrome is not excluded. Reviewed, Interpreted and Dictated by Cris Alejandro MD Transcribed by Radha Tobin Authenticated and [facility]
--- NOTE | 2022-09-13 15:26 | CT_ITS ---
FINAL REPORT TECHNIQUE: Thin section axial images were obtained through the right lower extremity without contrast. Reconstruction images were obtained from the axial data. This study was performed with techniques to keep radiation doses as low as reasonably achievable (ALARA). Individualized dose reduction techniques using automated exposure control or adjustment of mA and/or kV according to the patient's size were employed. CLINICAL HISTORY: foot pain FINDINGS: There are postoperative changes of the medial mid foot from fusion. The hardware is intact. There is lucency surrounding the distal aspects of 2 surgical screws extending into the base of the 3rd metatarsal, loosening is not excluded. A surgical staple is seen at the base of the proximal phalanx of the great toe. The staple is intact. No acute fracture is identified. There is mild multi joint degenerative disease. Mild hallux valgus deformity is identified. The Lisfranc articulation is intact. No other acute osseous abnormality is identified. The remaining soft tissues are normal. IMPRESSION: Postoperative changes to the medial midfoot with lucency surrounding the distal aspects of the screws extending into the 3rd metatarsal base, loosening is not excluded. Reviewed, Interpreted and Dictated by Cris Alejandro MD Transcribed by Radha Tobin Authenticated and [facility]
== END ==
LOC: RAD 14:01
PROVIDERS: PCP Family Medicine; Visit Provider Podiatrist
DX: M79.671 Pain in right foot (principal); T84.84XD Pain due to internal orthopedic prosthetic devices, implants and grafts, subsequent encounter; T84.9XXD Unspecified complication of internal orthopedic prosthetic device, implant and graft, subsequent encounter; Z96.9 Presence of functional implant, unspecified
CPT/HCPCS: 73700; 73718

== ENCOUNTER → 2022-09-20 10:51 | Outpatient (CLI) | payer BC, SELFPAY ==
--- NOTE | 2022-09-20 10:58 | ECG_ITS ---
APPROVED REPORT Exam: Resting ECG HR:52 bpm ECG Measurements Heart Rate 52 AXES NH 132 P 80 QRSd 78 QRS 81 QT 387 T 70 QTc 367 Conclusion SINUS BRADYCARDIA VOLTAGE CRITERIA FOR LVH [MEETS CRITERIA IN ONE OF: R(aVL), S(V1), R(V5), R(V5/V6)+S(V1)] ABNORMAL ECG UNCONFIRMED REPORT Electronically signed by : J Luis John MD 09/20/2022 19:33:16
[2022-09-20 11:54] LABS: Basophils # 0.1 K/mm3 (0-0.2); Basophils % 1.3 % (0.1-2.0); Eosinophils # 0.2 K/mm3 (0.0-0.4); Eosinophils % 2.9 % (0.1-12.0); Hematocrit 47.2 % (42.0-52.0); Hemoglobin 15.4 g/dL (14.1-18.0); Lymphocytes # 2.2 K/mm3 (0.7-4.5); Lymphocytes % 27.9 % (10-50); Mean Corpuscular HGB Conc 32.6 g/dL (31.8-35.4); Mean Corpuscular Hemoglobin 28.7 pg (27.0-31.2); Mean Corpuscular Volume 87.8 fl (80-94); Mean Platelet Volume 7.2 fl (7.4-10.4); Monocytes # 0.5 K/mm3 (0.1-1.0); Monocytes % 5.8 % (1.7-9.3); Neutrophils # 4.9 K/mm3 (1.8-7.8); Platelet Count 313 K/mm3 (142-424); Red Blood Count 5.38 M/mm3 (4.60-6.20); Red Cell Distribution Width 13.5 % (11.5-17.5); White Blood Count 7.9 K/mm3 (4.8-10.8)
[2022-09-20 12:07] LABS: Alanine Aminotransferase 23 U/L (12-78); Albumin Level 4.5 g/dl (3.5-5.0); Albumin/Globulin Ratio 1.5 (1.1-1.8); Alkaline Phosphatase 86 U/L (38-126); Anion Gap 7.5 mEq/L (5-15); Aspartate Amino Transferase 32 U/L (17-59); Bilirubin,Total 0.6 mg/dl (0.2-1.3); Blood Urea Nitrogen 14 mg/dl (9-20); Calcium 9.6 mg/dl (8.4-10.2); Carbon Dioxide 24 mmol/L (22.0-30.0); Chloride 109 mmol/L (98-107); Estimated Glomerular Filt Rate 81 ml/min (>60); GFR (African American) 98 ML/MIN (>60); Glucose 89 mg/dl (74-100); Potassium 4.5 mmoL/L (3.5-5.1); Sodium 136 mmol/L (136-145); Total Protein,Serum 7.5 g/dl (6.3-8.2)
[2022-09-20 12:13] LABS: C-Reactive Protein 0.6 mg/L (0-4)
[2022-09-20 12:24] LABS: 25-OH Vitamin D, Total 31.5 ng/mL (30-100)
[2022-09-20 12:51] LABS: Erythrocyte Sedimentation Rate 1 mm/hr (0-15)
[2022-09-29 20:46] LABS: Cotinine 186.6; Nicotine 9.2
== END ==
LOC: LAB 10:52
PROVIDERS: PCP Family Medicine; Visit Provider Podiatrist
DX: Z01.818 Encounter for other preprocedural examination (principal); M79.671 Pain in right foot
CPT/HCPCS: 36415; 80053; 80323; 82306; 85025; 85651; 86140; 93005

== ENCOUNTER 2022-10-10 08:01 | Day surgery (SDC) | payer BC, SELFPAY ==
[2022-10-10] VITALS (10 sets, daily range): BP systolic 121–141; BP diastolic 74–88; PULSE 65–101; RESP 14–18; TEMP 36.2–43; O2SAT 92–98
--- NOTE | 2022-10-10 08:43 | XR_ITS ---
FINAL REPORT CLINICAL HISTORY: SURGERY PRE OP ORDER, smoker COMPARISON: 07/12/2021 FINDINGS: SINGLE-VIEW CHEST The heart size is normal. The mediastinum is normal. The lungs are clear. There is no pneumothorax. IMPRESSION: No acute cardiopulmonary process. Reviewed, Interpreted and Dictated by Souleymane Burnett III, MD Transcribed by Radha Tobin Authenticated and [facility]
--- NOTE | 2022-10-10 09:32 | P.PN_ITS ---
[facility] Disclaimer: The information contained in this section may have been updated after the patient was seen, as this information can be updated by other users. Medical History Dyspnea Edema PFO (patent foramen ovale) Tobacco abuse Surgical History H/O foot surgery History of loop recorder History of surgery Family History Other Heart disease Social History (Updated 10/10/22 @ 08:21 by Coby Ledezma RN) Smoking Status: Current every day smoker tobacco type: cigarettes packs per day: 1 years smoked: 30 second hand exposure: No alcohol intake: never counseling provided: none substance use type: denies use current occupational status: employed Travel in the last 8 weeks: None household members: family housing: house current occupation: farm and factory work current occupational exposures/hazards: No caffeine: Yes [facility] Anesthesia Checklist Patient Identification Patient Identification: Arm Band Structural Data Admitted From: Home Planned Operative Procedure/s: Right Foot Hardware Removal, Revision Bunionectomy, Hammertoe Repair Consent for Planned Operative Procedure(s) Verified: Yes Verified Documents: Surgical Consent and History and Physical NPO Status Verified Time NPO: 00:00 Additional verifications Anesthesia Reactions: No Hx Blood Transfusions: No Blood Transfusion Reaction: No Airway Assessment C-Spine Mobility Assessed: Yes TMJ Mobility Assessed: Yes Dentition: Good Dentition Neurological Assessment Level of Consciousness: Awake and Alert Anesthesia Plan Anesthesia Risk discussed: Yes Anesthesia Plan: Verified ASA Class: II Anesthesia Type: General w/block (Right Popliteal/Adductor Canal Nerve Block. Risk/benefits explained. Pt verbalized understanding)
--- NOTE | 2022-10-10 11:50 | XR_ITS ---
PROCEDURE INFORMATION: Exam: XR Right Foot Exam date and time: 10/10/2022 6:06 PM Age: 47 years old Clinical indication: Device placement; Joint fixation hardware; Additional info: Post op bunionectomy TECHNIQUE: Imaging protocol: Radiologic exam of the right foot. Views: 3 or more views. COMPARISON: SD XR FOOT RT 2V 10/10/2022 5:00 PM FINDINGS: Bones/joints: Status post bunionectomy and ORIF of the right forefoot with fixation plates and K-wire pins in place. Casting material limits visualization of fine bony detail. Soft tissues: Unremarkable. IMPRESSION: Status post bunionectomy and ORIF of the right forefoot with fixation plates and K-wire pins in place.
--- NOTE | 2022-10-10 13:10 | SUR.OPER ---
1300- Family updated per David Ledezma RN @ this time
--- NOTE | 2022-10-10 14:25 | SUR.OPER ---
Ericka KaiserRN updating pt's family at this time
--- NOTE | 2022-10-10 15:27 | SUR.OPER ---
1519- C Job RN updated family at this time
--- NOTE | 2022-10-10 16:19 | SUR.OPER ---
1600- Pt's family updated at this time per Pedro Kaiser RN
--- NOTE | 2022-10-10 17:09 | XR_ITS ---
PROCEDURE INFORMATION: Exam: ARTHRODESIS/SI JOINT/PERC/W IMAGE GUIDE/INCL PLCMNT OF INTRA ARTIC IMPLANTS Exam date and time: 10/10/2022 5:00 PM Age: 47 years old Clinical indication: Device placement; Joint fixation hardware; Prior surgery; Surgery date: 6+ months; Additional info: Orif right foot using c-arm guidance. TECHNIQUE: Imaging protocol: ARTHRODESIS/SI JOINT/PERC/W IMAGE GUIDE/INCL PLCMNT OF INTRA ARTIC IMPLANTS COMPARISON: CT FOOT RT WO CON 09/13/2022 3:29 PM FINDINGS: Intra-operative fluoroscopic images of forefoot fixation. IMPRESSION: Intra-operative fluoroscopic images of forefoot fixation.
--- NOTE | 2022-10-10 17:16 | SUR.OPER ---
Pt's family updated by Pedro Kaiser RN
--- NOTE | 2022-10-10 17:55 | EXP.ANES.I ---
[facility] Anesthesia Record Part I Anesthesia Record I Intake, IV Amount: 1,300 Estimated blood loss (mL): 50 Urine output (mL): 400 Blood Pressure: 121/74 SaO2: 95 Pulse Rate: 84 Respiratory Rate: 15 Temperature: 98.2 F Patient is:: Drowsy and Oral/Nasal airway Stable to PACU at:: 17:50
--- NOTE | 2022-10-10 18:13 | EXP.OP.NOTE ---
Date of procedure: 10/11/22 Pre-op Diagnosis:: Right hallux valgus Right bunion Right metatarsalgia Right tailor's bunionette Right hammertoes 2-5 Post-op Diagnosis:: Same Procedure performed:: Right midtarsal/tarsometatarsal arthrodesis, multiple joints Right lapidus bunionectomy, revision Right 1st MPJ arthrodesis Hardware removal Right MPJ capsulotomy Right tailor's bunionectomy Soft tissue reconstruction of angular 5th toe deformity Right HT 2-5 repair (PIPJ AD 2-4, PIPJ AP 5) Autograft calcaneal bone harvest Application of allograft Application of posterior splint Surgeon:: Jayashree Don DPM TROLLEY COACH DRIVER:: Colin Pierre Anesthesia: GETA and regional (R popliteal block) Estimated blood loss (mL): 50 Clinical Note:: Patient is a 47-year-old male with a history of multiple foot surgeries. Patient reports no issues until Mar 2022.?He states he noticed some swelling to the forefoot/midfoot and toes feeling squished together with new bunion to outside of the foot . Denies pain to the 1st TMT joint, no prominent hardware noted. Reviewed x-ray, CT, MRI with patient. History of surgeries includin08/26/19, S/p right lapidus bunionectomy, exostectomy, gastrocnemius recession and 09/23/20, S/p right foot hardware removal, revision of Lapidus bunionectomy, dale osteotomy, application of injectable graft, [place] of posterior splint. The patient has tried modification of shoe gear, taping, strapping, inserts, ice elevation, NSAIDs. After a long discussion with the patient in regards to the conservative versus surgical treatment for the bunion deformity, the patient has elected to proceed with surgery because they have failed conservative treatment and continue to have pain and worsening symptoms affecting daily activities. The patient has been instructed on the planned procedure, all risk versus benefits of the procedure to include bleeding, infection, nerve and blood vessel damage, need for further surgery, delay in healing of soft tissue or bone, failure of bones to heal, non-union, mal-union, prolonged pain and recovery, prolonged swelling, CRPS/RSD, DVT and anesthetic complications. No guarantees were given. All questions fully answered. The patient verbalized understanding and agreed to proceed with surgery. Written consent was obtained. Operative findings:: Right foot bunion recurrence noted. Digital hammertoe contractures 2 through 5. Hardware removed from the tarsometatarsal joint. Bone hard and the first TMT joint was fused. No signs of infection noted. Arthritic changes noted to the 2-3rd TMT joints. Significant fibrotic scar tissue noted to the first MPJ. Joint capsule was scarred down. There was 60% degenerative changes to the first metatarsal head with subchondral cyst noted to the medial superior aspect of the head. There was also significant scuffing and wearing noted to the inferior lateral aspect of the first metatarsal head. Tailor's bunionette appreciated laterally. Due to the revisional and complicated nature of the case, it was also medically necessary to utilize allograft combined with the autograft. Due to the revisional nature of the surgery including dissection with fibrotic scar tissue, hardware removal, revision bunion surgery combined with the multiple ancillary procedures this case took approximately 1.5 hours longer than normal. Operative note:: On this date and time, the patient was deemed an appropriate surgical candidate. With informed consent signed, the patient was taken to the operating theater after anesthesia did a regional nerve block. The patient was positioned supine. General anesthesia was induced. Tourniquet was applied to the thigh. The lower extremity was prepped and draped in normal sterile fashion. IV Ancef infused. Right calcaneal autograft bone harvest: Attention was directed to the lateral calcaneus where a an incision was mapped out. Dissection was carried down full-thickness to the level of the b
[2022-10-10 18:46] LABS: Microscopic, Urine URINE MICROSCOPIC (MICROSCOPIC)
[2022-10-10 19:42] LABS: Appearance,Urine CLEAR (Clear); Bilirubin,Urine Negative (Negative); Blood, Urine TRACE-I (Negative); Color,Urine YELLOW (Yellow); Glucose,Urine (UA) Negative (Negative); Ketones,Urine Negative (Negative); Leukocyte Esterase,Urine Negative (Negative); Nitrate,Urine Negative (Negative); Protein,Urine Negative (Negative); Urobilinogen,Urine 0.2 EU/dl (0.2)
[2022-10-10 19:53] LABS: RBC,Urine Occasional #/hpf (0-3); WBC,Urine Occasional #/hpf (0-3)
== END 2022-10-10 19:00 | disposition home or self-care (01) ==
PROVIDERS: PCP Family Medicine; Visit Provider Podiatrist
PROC: (CPT 28730; principal; 2022-10-10 09:30)
DX: M20.11 Hallux valgus (acquired), right foot (principal); M20.41 Other hammer toe(s) (acquired), right foot; M21.621 Bunionette of right foot; F17.210 Nicotine dependence, cigarettes, uncomplicated; Z79.899 Other long term (current) drug therapy; T84.89XA Other specified complication of internal orthopedic prosthetic devices, implants and grafts, initial encounter; Y83.1 Surgical operation with implant of artificial internal device as the cause of abnormal reaction of the patient, or of later complication, without mention of misadventure at the time of the procedure
CPT/HCPCS: 28730; 28308; 28270; 28313; 28285 ×4; 20900; 28297; 71045; 73620; 73630; 76000; 81001; 96374; C1713; C1762; C1776; J2405

== ENCOUNTER → 2022-10-31 09:32 | Outpatient (CLI) | payer BC, SELFPAY ==
--- NOTE | 2022-10-31 09:35 | XR_ITS ---
FINAL REPORT CLINICAL HISTORY: Postoperative right foot COMPARISON: 10/10/2022 FINDINGS: RIGHT FOOT 3 views of the right foot were obtained. Overlying cast has been removed. There are side plates and screws securing the 1st tarsometatarsal joint and 1st metatarsophalangeal joint. There also side plates and screws securing the 2nd and 3rd tarsal metatarsal joints. K-wires are seen in the 2nd through 5th digits. Soft tissues are unremarkable. IMPRESSION: Postoperative changes as above. Reviewed, Interpreted and Dictated by Parmjit Petersen MD Transcribed by Gracia Wilson Authenticated and [facility]
== END ==
PROVIDERS: PCP Family Medicine; Visit Provider Podiatrist
DX: M79.671 Pain in right foot (principal); Z98.890 Other specified postprocedural states
CPT/HCPCS: 73630

== ENCOUNTER → 2022-11-13 09:06 | Outpatient (CLI) | payer BC, SELFPAY ==
--- NOTE | 2022-11-13 09:10 | XR_ITS ---
FINAL REPORT CLINICAL HISTORY: post-op COMPARISON: October 31, 2022 FINDINGS: 3 views of the right foot were obtained. There is postoperative change of the midfoot and forefoot. There are multiple screw plates and screws. There are K-wires through the 2nd through 4th digits. There is no acute bony abnormality. IMPRESSION: Stable postoperative changes. Reviewed, Interpreted and Dictated by Souleymane Burnett III, MD Transcribed by Greg Puente Authenticated and [facility]
== END ==
PROVIDERS: PCP Family Medicine; Visit Provider Podiatrist
DX: M79.671 Pain in right foot (principal); Z98.890 Other specified postprocedural states
CPT/HCPCS: 73630

== ENCOUNTER → 2022-11-21 13:45 | Outpatient (CLI) | payer BC, SELFPAY | PROVIDERS: Visit Provider Podiatrist | DX: T81.31XA Disruption of external operation (surgical) wound, not elsewhere classified, initial encounter (principal) | CPT/HCPCS: 87070; 87205 ==

== ENCOUNTER → 2022-12-10 13:01 | Outpatient (CLI) | payer BC, SELFPAY ==
--- NOTE | 2022-12-10 13:04 | XR_ITS ---
FINAL REPORT CLINICAL HISTORY: Foot Pain, hx of multiple sxs COMPARISON: November 13, 2022 FINDINGS: 3 views of the right foot were obtained. There is postoperative change of the 2nd through 5th proximal phalanges. There has been interval removal of the K-wires. There is widespread either postoperative change with screw plate and multiple screws, stable. IMPRESSION: Postoperative changes as described. Reviewed, Interpreted and Dictated by Souleymane Burnett III, MD Transcribed by Greg Puente Authenticated and [facility]
== END ==
PROVIDERS: PCP Family Medicine; Visit Provider Podiatrist
DX: M79.671 Pain in right foot (principal); S91.301A Unspecified open wound, right foot, initial encounter
CPT/HCPCS: 73630

== ENCOUNTER 2023-01-01 09:30 | Outpatient (RCR) | payer BC, SELFPAY ==
--- NOTE | 2022-12-18 15:58 | HMH.PTOPEV ---
PT Outpatient Evaluation Rehab PT Outpatient Evaluation Start: 12/18/22 15:01 Freq: Status: Active Protocol: Document 12/18/22 15:21 SETH (Rec: 12/18/22 15:57 SETH [id number]) E-signed By Constantino Unger, PT Outpatient Therapy Subjective History Subjective History Patient is a 47 year old male presenting to outpatient PT with reports of post-surgical R foot pain S/P arthordesis, bunionectomy and R hammertoe repair 2-5 performed 10/10/22. Patients initial injury occurred after dropping a tractor lift arm on his R foot approx 20 years ago. Initial sx occurred 2019, followed by revision in 2020. Comorbidities include hx of heart ablasion x 4 and loop recorder placement. Chief Complaint Pain,Stiff Symptom Type Burning Symptoms Relieved By Rest/Positioning,Ice,Elevation Symptoms Aggravated By Standing,Physical Activity, Walking Prior Functional Limitations Standing,Walking Current Functional Limitations Housework,Standing,Recreation Activity,Walking Symptom Description Intermittent Level of pain today (0-10) 0 Pain scale - at its best (0-10) 0 Pain scale - at its worst (0-10) 6 Ankle/Foot Eval Gait Observation General Gait Pattern Observation Antalgic Gait,Decrease Weight Bear (R) Palpation Tenderness right Ankle/Foot Palpation Findings Tenderness Ankle/Foot Palpation Overall Comment Surgical incisions 2/4 ATF TTP positive ROM Ankle/Foot Dorsiflexion w/Knee Extended 3 Active Range Motion (degrees) Ankle/Foot Dorsiflexion w/Knee Extended 10 Passive Range (degrees) Ankle/Foot Plantar Flexion Active Range 50 of Motion (degrees) Ankle/Foot Plantar Flexion Passive Range 50 of Motion (degrees) Ankle/Foot Eversion Active Range of 11 Motion (degrees) Ankle/Foot Eversion Passive Range of 15 Motion (degrees) Ankle/Foot Inversion Active Range of 10 Motion (degrees) Ankle/Foot Inversion Passive Range of 25 Motion (degrees) Ankle/Foot ROM Limitations Soft Tissue Tightness,Muscle Tone Great Toe ROM Limitations Contracture,Bony Restriction MMT Ankle Dorsiflexion Strength Grade 4 Good Ankle Plantarflexion Strength Grade 4 Good Foot Eversi
== END 2023-01-01 09:35 | disposition home or self-care (01) ==
LOC: PT 09:30
PROVIDERS: PCP Family Medicine; Visit Provider Podiatrist
DX: L03.115 Cellulitis of right lower limb (principal); Z98.890 Other specified postprocedural states; G89.18 Other acute postprocedural pain
CPT/HCPCS: 97016; 97110; 97163

== ENCOUNTER → 2023-01-25 10:07 | Outpatient (CLI) | payer BC, SELFPAY ==
--- NOTE | 2023-01-25 10:08 | CT_ITS ---
FINAL REPORT TECHNIQUE: Thin section axial CT images of the right foot with coronal and sagittal reformats were performed. This study was performed with techniques to keep radiation doses as low as reasonably achievable (ALARA). Individualized dose reduction techniques using automated exposure control or adjustment of mA and/or kV according to the patient''s size were employed. CLINICAL HISTORY: foot pain COMPARISON: 12/10/2022 FINDINGS: There is new lucency in the mid navicular worrisome for nondisplaced fracture. There is presumed surgical defect in the lateral calcaneus as well as postoperative changes in the midfoot, first, second and third metatarsals with multiple screws present. There has been interval removal of 3 screws and staple. Multiple new screw plates and screws present. There are mild degenerative changes. IMPRESSION: New lucency in the mid navicular worrisome for nondisplaced fracture. Interval removal of screws and staple with multiple new screw plates and screws in place. Reviewed, Interpreted and Dictated by Souleymane Burnett III, MD Transcribed by Estrellita Boo Authenticated and [facility]
== END ==
PROVIDERS: PCP Family Medicine; Visit Provider Podiatrist
DX: M79.671 Pain in right foot (principal); Z98.890 Other specified postprocedural states
CPT/HCPCS: 73700

== ENCOUNTER → 2023-02-14 13:35 | Outpatient (CLI) | payer BC, SELFPAY ==
--- NOTE | 2023-02-14 13:37 | XR_ITS ---
FINAL REPORT CLINICAL HISTORY: right foot pain COMPARISON: 12/10/2022 FINDINGS: AP, oblique and lateral views of the right foot were obtained. There are extensive postoperative changes in the midfoot and the first metatarsal phalangeal region, which are stable. The hardware is intact. There is no acute fracture or dislocation. There is mild degenerative joint disease present. Soft tissues are normal. IMPRESSION: No acute osseous abnormality of the right foot. Extensive postoperative changes in the midfoot and the first MTP region, stable. Reviewed, Interpreted and Dictated by Cris Alejandro MD Transcribed by Katelyn Brown Authenticated and [facility]
== END ==
PROVIDERS: PCP Family Medicine; Visit Provider Podiatrist
DX: S92.251A Displaced fracture of navicular [scaphoid] of right foot, initial encounter for closed fracture (principal)
CPT/HCPCS: 73630

== ENCOUNTER 2023-03-13 08:00 | Outpatient (RCR) | payer BC, SELFPAY ==
--- NOTE | 2023-03-04 14:05 | HMH.PTOPEV ---
PT Outpatient Evaluation Rehab PT Outpatient Evaluation Start: 03/04/23 13:51 Freq: Status: Active Protocol: Document 03/04/23 13:51 TEENA (Rec: 03/04/23 14:04 TEENA [id number]) E-signed By Shad Padgett, PT Outpatient Therapy Subjective History Subjective History This is the initial PT eval for Wesley Joyce, 47 yowm who presents with c/o R foot pain worse x ~ 1 mo due to R navicular fx after initial surgery ~ 5 mos ago with multiple areas of fixation. He reports pain only with prolonged walking at this point. He also reports he feels he walks more on the outside of his foot than he did prior to surgery. Otherwise he feels much better overall and is anxious to get back to work. Chief Complaint Pain Symptom Type Ache Symptoms Relieved By Rest/Positioning Symptoms Aggravated By Walking Prior Functional Limitations None Current Functional Limitations Walking Symptom Description Activity Dependent Level of pain today (0-10) 0 Pain scale - at its best (0-10) 0 Pain scale - at its worst (0-10) 5 Ankle/Foot Eval ROM right Ankle/Foot Dorsiflexion w/Knee Extended 0-12 Active Range Motion (degrees) Ankle/Foot Plantar Flexion Active Range 0-42 of Motion (degrees) Ankle/Foot Eversion Active Range of 0-8 Motion (degrees) Ankle/Foot Inversion Active Range of 0-30 Motion (degrees) MMT Ankle Dorsiflexion Strength Grade 4 Good Ankle Plantarflexion Strength Grade 4 Good Foot Eversion Strength Grade 4 Good Foot Inversion Strength Grade 4 Good Outpatient Therapy Assessment Impairments Problems/Impairmments Impaired Range of Motion, Impaired Strength,Impaired Endurance,Impaired Walking, Impaired Incline Stepping, Impaired Stepping on Uneven Surface,Impaired Recreational Activities,Impaired Work Activities,Subjective C/O Pain ,Impaired Self Care/Self Management Prognosis Rehab Potential Good Clinical Impression Consistent with Diagnosis Yes Short Term Goals Number of Weeks 2
== END 2023-03-13 08:05 | disposition home or self-care (01) ==
LOC: PT 08:00
PROVIDERS: Visit Provider Podiatrist
DX: S92.251A Displaced fracture of navicular [scaphoid] of right foot, initial encounter for closed fracture (principal); M25.571 Pain in right ankle and joints of right foot
CPT/HCPCS: 97110; 97112; 97163; 97530

== ENCOUNTER 2023-07-30 16:38 | Outpatient (POV) | payer BC, SELFPAY | END 2023-07-30 23:59 | disposition home or self-care (01) | LOC: SC 16:38 | PROVIDERS: PCP Family Medicine; Visit Provider Dermatology | DX: Z00.00 Encounter for general adult medical examination without abnormal findings (principal) ==

== ENCOUNTER 2023-09-03 12:16 | Outpatient (CLI) | payer BC, SELFPAY ==
--- NOTE | 2023-09-03 12:24 | XR_ITS ---
FINAL REPORT CLINICAL HISTORY: lt shoulder pain FINDINGS: Left shoulder Three views were obtained. There is no acute fracture or dislocation. There is chronic irregularity of the distal clavicle. The joint spaces appear normal. No soft tissue abnormality is identified. IMPRESSION: No acute process. Reviewed, Interpreted and Dictated by Souleymane Burnett III, MD Transcribed by Radha Tobin Authenticated and [facility]
== END 2023-09-03 23:59 ==
LOC: RAD 12:16
PROVIDERS: PCP Family Medicine; Visit Provider Orthopaedic Surgery
DX: M25.512 Pain in left shoulder (principal)
CPT/HCPCS: 73030

== ENCOUNTER 2023-09-24 12:45 | Outpatient (CLI) | payer BC, SELFPAY ==
--- NOTE | 2023-09-24 12:46 | MR_ITS ---
FINAL REPORT TECHNIQUE: Multiplanar and multisequence imaging of the shoulder was obtained without contrast. CLINICAL HISTORY: shoulder pain. LIMITED ROM. POPPING IN SHOULDER. WEAKNESS IN ARM. NO INJURY OR TRAUMA COMPARISON: None FINDINGS: Bones and joints: There is no acute fracture, edema, or pathologic marrow replacement. Acromioclavicular joint degenerative disease is present and there is osteophytosis which narrows the supraspinatus outlet. There are rounded calcifications adjacent to the acromioclavicular joint, that are likely degenerative. Rotator cuff: There is no full-thickness rotator cuff tendon tear. No biceps tendon dislocation is present. There is no fatty atrophy of the rotator cuff muscles. Labrum: No labral tear is identified. The glenohumeral ligaments appear intact. The biceps tendon is within normal limits. No biceps tendon tear is identified. Other: There is no joint effusion. Remaining soft tissues are within normal limits. IMPRESSION: Rounded calcifications of the acromioclavicular joint, likely degenerative. Reviewed, Interpreted and Dictated by Cris Alejandro MD Transcribed by Katelyn Brown Authenticated and [facility]
== END 2023-09-24 23:59 ==
PROVIDERS: PCP Family Medicine; Visit Provider Orthopaedic Surgery
DX: M25.812 Other specified joint disorders, left shoulder (principal)
CPT/HCPCS: 73221

== ENCOUNTER 2025-05-15 19:14 | Observation (INO) | payer BC, SELFPAY ==
--- NOTE | 2025-05-15 19:24 | ECG_ITS ---
APPROVED REPORT Exam: Resting ECG HR:51 bpm ECG Measurements Heart Rate 51 AXES QRSd 79 QRS 84 QT 389 T 58 QTc 365 Conclusion ATRIAL FIBRILLATION WITH SLOW VENTRICULAR RESPONSE VOLTAGE CRITERIA FOR LVH [MEETS CRITERIA IN ONE OF: R(aVL), S(V1), R(V5), R(V5/V6)+S(V1)] ABNORMAL ECG UNCONFIRMED REPORT Short CT interval with occasional dropped P waves. A bradycardic rhythm. No evidence of ST elevation or depression. This is concerning for either intermittent third-degree AV block, sick sinus syndrome, or Mobitz type II Electronically signed by : TK HAGAN, 05/18/2025 13:04:11
--- OUTSIDE RECORDS SUMMARY | 2025-05-15 19:24 | XMS_ITS | Patient Health Record ---
[facility] [address] [facility] [address] [place] [id number] Care Team Providers Care Sofa Cover Inspector Name Role Phone David Kaur Primary Care Provider Allergies No Known Allergies Reason For Referral No Information Immunizations Vaccine Route Administration Date Status Comme nts Tetanus Tdap-Adacel (over 7yrs) IM Intramuscular 01/28/2012 Administered MMR Unknown 08/30/1989 Administered Hepatitis B (20 and more) IM Intramuscular 07/07/2019 Admi nistered Hepatitis B (20 and more) IM Intramuscular 09/24/2019 Admi nistered COVID 19 Eitan Unknown 10/07/2020 Administered COVID 19 Eitan Unknown 06/20/2021 Administered Problems Problem Type SNOMED Code ICD Code Onset Dates Problem Status W/U Status Risk Notes Problem Meningitis (9968638) Meningitis, unspecified (G03.9) Active confirmed Problem Patent foramen ovale (disorder) (724116452) PFO (patent foramen ovale) (Q21.1) Active confirmed Plan Of Treatment No Information Insurance Providers Payer Name Payer Address Payer Phone Subscriber Number Group Number Insured Name Patient Relationship to Insured Coverage Start Date Coverage End Date [employer] [address] [place] [address] [id number] Wesley Joyce Self - patient is the insured Medical (General) History Medical History History ICD Code PFO - followed by Dr. PALUMBO Surgical History Surgery Date(Month/Year) none ablation x4 Lesion Removal - Dr Reed [place] 03/12/2018 R Foot Repair - Bunion Removal - Screws and Plates applied Aug 26, 2019
[2025-05-15 19:25] VITALS: BP 145/81; PULSE 60; RESP 16; TEMP 36.9; O2SAT 100; BMI 19.6
[2025-05-15 19:30] VITALS: BP 145/81; PULSE 60; RESP 16; O2SAT 100
--- NOTE | 2025-05-15 19:35 | XR_ITS ---
PROCEDURE INFORMATION: Exam: XR Chest Exam date and time: 05/15/2025 7:48 PM Age: 49 years old Clinical indication: Pain; Chest pressure; Additional info: Chest pain, palpitations TECHNIQUE: Imaging protocol: Radiologic exam of the chest. Views: 1 view. COMPARISON: CR XR CHEST PORTABLE 10/10/2022 8:43 AM FINDINGS: Tubes, catheters and devices: Loop recorder device overlies the heart. Lungs: Unremarkable. No consolidation. Pleural spaces: Unremarkable. No pleural effusion. No pneumothorax. Heart/Mediastinum: Unremarkable. No cardiomegaly. Bones/joints: Unremarkable. IMPRESSION: No acute findings.
--- NOTE | 2025-05-15 19:39 | ED_ITS ---
Discharge Plan Disposition Patient Disposition: Admitted Referrals Follow up/Referrals: Chau Kaur MD [Primary Care Provider, Medical] - See instructions Clinical Impressions Clinical Impression: Sick sinus syndrome, Heart palpitations Print Language Print Language: Slovenian Discharge ED Provider: Inocente Bravo General Adult HPI General Chief complaint: Arrhythmia/Palpitations Stated complaint: Fast heartrate, 40 Time Seen by Provider: 05/15/25 19:28 Mode of Arrival: Ambulatory Source of Information: Patient Description of Symptoms (Recalled from ER Triage Doc. by RN): PT presents to the ED for evaluation of c/o feeling PVS's . PT stated it started on 05/09/2025. PT stated he can really feel it when he is working but also at rest. Denies blood thinners. Denies hx of PA. History of Present Illness HPI narrative: Wesley Joyce is a 49-year-old male with a history of PFO, tobacco use, 4 previous cardiac ablations due to PVCs , most recently 9 years ago at [facility]. He also reports he had a loop recorder several years ago placed by Dr. Logan that he does not think is operational currently. Patient states that over the last 6 days, he has had palpitations and feels like his heart is skipping a beat. He reports intermittent pains in his chest only when his heart skips a beat. He denies any shortness of breath, fever, cough or recent illness. He states that this feels like when he had to have an ablation previously. He states that he does not take any medications. He was taken off aspirin and has been followed by Dr. Logan, most recently seen approximately 1 year ago. Related Data Allergies Allergy/AdvReac Type Severity Reaction Status Date / Time No Known Allergies Allergy Verified 01/18/25 14:57 [facility] Disclaimer: The information contained in this section may have been updated after the patient was seen, as this information can be updated by other users. Medical History Edema RIGHT FOOT Dyspnea PFO (patent foramen ovale) Tobacco abuse Surgical History History of loop recorder History of surgery CARDIAC ABLATION X4 H/O foot surgery RIGHT FOOT Family History Other Heart disease Social History Smoking Status: Current every day smoker tobacco type: cigarettes packs per day: 1 years smoked: 30 second hand exposure: No alcohol intake: never counseling provided: none substance use type: denies use current occupational status: employed Travel in the last 8 weeks?: None household members: family housing: house current occupation: farm and factory work current occupational exposures/hazards: No caffeine: Yes Have you lived/traveled outside US in past 30 days?: No Contact w/someone who lives/traveled outside US past 30 days?: No Exposure to someone with infectious disease in past 14 days?: No Do you have a fever (greater than 100.4 F or 38 C)?: No Have you tested positive for COVID-19?: No Exposed to someone with COVID-19 in past 14 days?: No Do you have a sore throat?: No Do you have a cough?: No Do you have any weakness?: No Do you have any diarrhea?: No Are you experiencing any unusual bleeding?: No Do you have any muscle aches/pain?: No Do you have any abdominal pain?: No Are you experiencing loss of taste or smell?: No Other Medical History Have you received the Flu Vaccine for this season: No Have you received the Pneumonia Vaccine: No ROS Obtained: Yes Systems reviewed as appropriate & no additional complaints except as documented Physical Exam General General appearance: alert and in no apparent distress Head Head exam: atraumatic Eye Eye exam: Present normal appearance ENT ENT exam: Present normal external ear exam Neck Neck exam: Present full ROM Chest Chest inspection: Present symmetric chest wall rise Respiratory Respiratory exam: Present normal lung sounds bilaterally; Absent respiratory distress Cardiovascular Cardiovascular exam: Present bradycardia and irregular rhythm Abdominal Exam Abdominal exam: Present soft; Absent tenderness or guarding exam: Present deferred Extremities Exam Extremities exam: Present normal inspection Back Exam Back exam: Present normal inspection Neurological Exam Neurological exam: Present alert and oriented X3 Psychiatric Psychiatric exam: Present normal affect Skin Skin exam: Present warm and dry Medical Decision Making Medical Records Screening: Per USPSTF and CDC recommendations, given the prevalence of disease in our region, it is our hospital?s policy to screen for HIV and viral Hepatitis for all patients aged 18 and over and those with ongoing risk factors. [place] Inquiry Pt receiving controlled substance: No Vital Signs: 05/15/25 19:25 05/15/25 19:30 Temperature 98.4 F Temperature Source Oral Pulse Rate 60 Pulse Rate [Right] 60 Respiratory Rate 16 16 Blood Pressure 145/81 H Blood Pressure [Right Arm] 145/81 H Blood Pressure Mean [Right Arm] 102 02 Sat by Pulse Oximetry 100 100 Oxygen Delivery Method Room Air Room Air Lab Data Lab Results 05/15/25 19:40: WBC 7.0, RBC 4.89, Hgb 14.4, Hct 42.4, MCV 86.7, MCH 29.4, MCHC 34.0, RDW 13.1, Plt Count 314, MPV 8.9, Neut % (Auto) 45.6, Lymph % (Auto) 42.7, Nolan % (Auto) 6.7, Eos % (Auto) 3.7, Baso % (Auto) 1.0, Neut # (Auto) 3.2, Lymph # (Auto) 3.0, Nolan # (Auto) 0.5, Eos # (Auto) 0.3, Baso # (Auto) 0.1, Sodium 138, Potassium 4.3, Chloride 102, Carbon Dioxide 29, Anion Gap 11.3, BUN 13, Creatinine 0.90, Estimated Creat Clear 87, Estimated GFR 90, Est GFR ( Amer) 109, Glucose 99, Calcium 9.0, Magnesium 1.8, Total Bilirubin 0.5, AST 28, ALT 17, Alkaline Phosphatase 97, Troponin I < 0.01, NT-Pro-B Natriuret Pep 24.3, Total Protein 7.4, Albumin 4.2, Globulin 3.2, Albumin/Globulin Ratio 1.3, TSH 2.58, Free T4 0.87 05/15/25 19:55: VBG pH 7.36, VBG pCO2 43.9, VBG pO2 38.3, VBG HCO3 24.4, VBG Total CO2 25.7, VBG O2 Saturation 75.4 H, VBG Base Excess -1.1, VBG Lactic Acid 1.5 05/15/25 19:40 05/15/25 19:40 Orders (Tests/Meds): ED MEDICATIONS Generic Name Dose Route Start Last Admin Trade Name Freq PRN Reason Stop Dose Admin Enoxaparin Sodium 40 mg 05/16/25 09:00 Enoxaparin 40mg/0.4ml Syringe SUBCUT 06/15/25 08:59 DAILY [facility]ERICO ORDERS Category Date Time Status CXR --portable [XR chest portable] Stat Exams 05/15/25 19:35 Taken BNP [NT Pro Brain Natriuretic Pep.] Stat Lab 05/15/25 19:40 Completed Basic Metabolic Panel AMLAB Lab 05/16/25 06:00 Ordered CBC w/Auto Diff [Complete Blood Count Auto Diff] Stat Lab 05/15/25 19:40 Completed CMP [Comprehensive Metabolic Panel] Stat Lab 05/15/25 19:40 Completed Complete Blood Count Auto Diff AMLAB Lab 05/16/25 06:00 Ordered Free T4 (Free Thyroxine) Stat Lab 05/15/25 19:40 Completed HIV Combo Stat Lab 05/15/25 19:29 Ordered Hepatitis C Ab Qual. W/ RFX Stat Lab 05/15/25 19:29 Ordered Magnesium Stat Lab 05/15/25 19:40 Completed TSH [Thyroid Stimulating Hormone] Stat Lab 05/15/25 19:40 Completed Troponin I Q3H Lab 05/15/25 22:45 Ordered Troponin I Q3H Lab 05/16/25 01:45 Ordered Troponin I Stat Lab 05/15/25 19:40 Completed Venous Blood Gas Routine RT 05/15/25 19:55 Completed ECG Data Tracing #1: I reviewed this ECG and interpreted as documented below: Short MS interval with what appears to be dropped beats, likely Mobitz type II AV block 8. No ST elevation or depression. QTc of 365 Medical Decision Narrative: Noemi Dukes is a 69-year-old female with a history of stoma placement secondary to perforated diverticulitis, initial surgery done in 2019 followed by second surgery in 2020, fibromyalgia, tubal ligation, cholecystectomy, C- section, appendectomy who presents to the emergency department for complaints of a prolapsed stoma. Patient states that over the last 2 weeks, she has had issues with her stoma prolapsing. She states over the last 3 days, it has been prolapsed what appears to be approximately 6 inches and is more painful at this time. She states that it has not retracted at all since then. She does note that she is followed by Dr. Almonte here to monitor her stoma prolapse. She does note that she was sent to previously to try to reanastomose her intestines, however they were unable to do so. She states that she has had blood and liquid output through her stoma over the last 3 days. On arrival, patient's blood pressure was mildly hypertensive with BP of 145/81, heart rate between 55 and 60 bpm the time of my evaluation, oxygen saturation 10 On arrival, patient was placed in chair bed 13. EKG was obtained which showed a irregular and bradycardic rhythm. Patient has intermittent P waves and the P waves that are present do appear very short in relation to the QRS but there is no ST elevation or depression. I am concerned this could represent a Mobitz type II versus intermittent type III AV block. Patient was then moved to room 7 for close cardiac monitoring. Differential diagnosis includes, but is not limited to: High degree AV blockade, ACS, thyroid dysfunction, electrolyte derangement, scarring from previous ablations affecting AV/SA node, among others. The most morbid conditions were considered and workup was based on these. Initial workup in the emergency department included: Troponin, CBC with differential, CMP, chest x-ray, magnesium level, TSH/free T4, BNP I did discuss patient's case with Dr. Logan with cardiology team due to concern for high-grade AV isabelle blockade that may require pacemaker. Dr. Logan reviewed the EKG and feels that it is most likely care support representative sick sinus syndrome and recommended admission to the hospital for continued monitoring and possible pacemaker on Saturday if needed. He is concerned that with previous ablations, they may have affected the SA node, causing his current symptoms and EKG findings. Laboratory workup shows no leukocytosis, no anemia, VBG unremarkable and nonactionable. Electrolytes within normal limits. No JAMIL. Initial troponin less than 0.01, NT proBNP normal at 24.3. Thyroid studies within normal limits. Chest x-ray interpreted by me personally. No focal consolidation, no pneumothorax, no widened mediastinum, no enlargement of the cardiac silhouette. Unremarkable chest x-ray. Patient does have what appears to be a device, likely a loop recorder, in the left heart, which is known to be in place see radiology report for details. Given patient's EKG findings concerning for sick sinus syndrome, I discussed patient's case with the hospitalist service and they agreed to admit the patient with plan for likely pacemaker on Saturday and to admit for continued cardiac monitoring. Patient was in agreement to admission at this time. Patient was subsequently admitted to the hospital service for further management. Critical Care Critical Care Time Critical Care Time: No
--- NOTE | 2025-05-15 19:43 | PC.NURSE ---
x3 IV attempts, non successful. Provider notified.
[2025-05-15 19:54] LABS: Hematocrit 42.4 % (42.0-52.0); Hemoglobin 14.4 g/dL (14.1-18.0); Immature Granulocytes % 0.3 %; Mean Corpuscular HGB Conc 34.0 g/dL (31.8-35.4); Mean Corpuscular Hemoglobin 29.4 pg (27.0-31.2); Mean Corpuscular Volume 86.7 fl (80-94); Nucleated Red Blood Cells % 0 %; Platelet Count 314 K/mm3 (142-424); Red Blood Count 4.89 M/mm3 (4.60-6.20); Red Cell Distribution Width-SD 41.2 fL; White Blood Count 7.0 K/mm3 (4.8-10.8)
[2025-05-15 19:57] LABS: Lactate Venous 1.5 mmol/L (0.4-2.0); VBG HCO3 24.4 mmol/L (23-30); VBG PCO2 43.9 mmol/L (35-51); VBG PH 7.36 mmol/L (7.31-7.41); VBG PO2 38.3 mmol/L (28-40)
[2025-05-15 20:02] LABS: Albumin Level 4.2 g/dl (3.5-5.0); Chloride 102 mmol/L (98-107); Potassium 4.3 mmoL/L (3.5-5.1); Sodium 138 mmol/L (136-145)
[2025-05-15 20:05] LABS: Alanine Aminotransferase 17 U/L (12-78); Albumin/Globulin Ratio 1.3 (1.1-1.8); Alkaline Phosphatase 97 U/L (38-126); Anion Gap 11.3 mEq/L (5-15); Aspartate Amino Transferase 28 U/L (17-59); Bilirubin,Total 0.5 mg/dl (0.2-1.3); Blood Urea Nitrogen 13 mg/dl (9-20); Calcium 9.0 mg/dl (8.4-10.2); Carbon Dioxide 29 mmol/L (22.0-30.0); Creatinine Clearance Estimated 87 mL/min (50-200); Creatinine,Serum 0.90 mg/dl (0.66-1.25); Estimated Glomerular Filt Rate 90 ml/min (>60); GFR (African American) 109 ML/MIN (>60); Globulin 3.2 g/dL (1.3-3.2); Glucose 99 mg/dl (74-100); Total Protein,Serum 7.4 g/dl (6.3-8.2)
[2025-05-15 20:10] LABS: Magnesium 1.8 mg/dl (1.6-2.3)
[2025-05-15 20:15] LABS: NT Pro Brain Natriuretic Pep. 24.3 pg/mL (0-125)
[2025-05-15 20:23] LABS: Free T4 (Free Thyroxine) 0.87 ng/dl (0.78-2.19)
[2025-05-15 20:28] LABS: Troponin I < 0.01 ng/ml (0.00-0.034)
[2025-05-15 20:36] LABS: Thyroid Stimulating Hormone 2.58 uIU/mL (0.465-4.68)
--- NOTE | 2025-05-15 21:06 | PC.NURSE ---
Admission report called to Leticia CLARK
[2025-05-15 21:07] VITALS: BP 141/92; PULSE 61; RESP 18; TEMP 36.7; O2SAT 98
[2025-05-15 22:15] VITALS: BP 148/85; PULSE 46; RESP 16; TEMP 36.4; O2SAT 98; BMI 19.0
[2025-05-15 22:22] LABS: Hepatitis C Ab Qual. W/ RFX NEGATIVE (Negative)
--- NOTE | 2025-05-15 23:30 | P.HP_ITS ---
<Statement entered by Isai Tobias MD - 05/16/25 20:10> Rounded on patient after nurse practitioner. Personally examined and interviewed patient. Agree with exam findings and care plan as documented. History of Present Illness *Admission Date: 05/15/25 *Reason for visit:: Palpitations *History of present illness: 49-year-old male patient presents to ER with complaints of irregular heartbeats. He has had these for about 5 or 6 days. He denies shortness of breath. Does have brief chest discomfort when he notices the palpitations. Has history of arrhythmias requiring 4 ablations in the past. He states he did not have any complications with any of those ablations and the last one was 9 years ago done at [facility]. He denies any other medical history. Denies any other symptoms. Department discussed case with cardiology who agreed to see the patient in consult, will likely need pacemaker. [facility] Disclaimer: The information contained in this section may have been updated after the patient was seen, as this information can be updated by other users. Medical History Edema RIGHT FOOT Dyspnea PFO (patent foramen ovale) Tobacco abuse Surgical History History of loop recorder History of surgery CARDIAC ABLATION X4 H/O foot surgery RIGHT FOOT Family History Other Heart disease Social History (Updated 05/15/25 @ 22:29 by Leticia Burr RN) Smoking Status: Current every day smoker tobacco type: cigarettes packs per day: 1 years smoked: 30 second hand exposure: No alcohol intake: never counseling provided: none substance use type: denies use current occupational status: employed Travel in the last 8 weeks?: None household members: family housing: house current occupation: farm and factory work current occupational exposures/hazards: No caffeine: Yes Have you lived/traveled outside [place] in past 30 days?: No Contact w/someone who lives/traveled outside [place] past 30 days?: No Exposure to someone with infectious disease in past 14 days?: No Do you have a fever (greater than 100.4 F or 38 C)?: No Have you tested positive for COVID-19?: No Exposed to someone with COVID-19 in past 14 days?: No Do you have a sore throat?: No Do you have a cough?: No Do you have any weakness?: No Do you have any diarrhea?: No Are you experiencing any unusual bleeding?: No Do you have any muscle aches/pain?: No Do you have any abdominal pain?: No Are you experiencing loss of taste or smell?: No Other Medical History Have you received the Flu Vaccine for this season: No Have you received the Pneumonia Vaccine: No Review of Systems Constitutional Constitutional: Denies body ache(s), Denies chills, Denies fatigue and Denies fever(s) Eyes Eyes: Denies blurry vision and Denies change in vision ENT Ears, Nose, Mouth, and Throat: Denies hoarseness and Denies sore throat *Cardiovascular Cardiovascular: Reports chest pain, Denies dyspnea and Denies lightheadedness *Respiratory Respiratory: Denies cough and Denies dyspnea *Gastrointestinal Gastrointestinal: Denies abdominal pain, Denies nausea and Denies vomiting *Genitourinary Genitourinary: Denies urinary frequency and Denies urinary urgency *Musculoskeletal Musculoskeletal: Denies arthralgias, Denies back pain and Denies numbness Integumentary/Breasts Skin/Breast: Denies lesions and Denies rash *Neurologic Neurologic: Denies localized weakness, Denies memory loss and Denies numbness Psychiatric Psychiatric: Denies anxiety and Denies memory loss Endocrine Endocrine: Denies fatigue Hematologic/Lymphatic Hematologic/Lymphatic: Denies easy bleeding and Denies easy bruising Meds Home Medications and Allergies Home Medications ?Medication ?Instructions ?Recorded ?Confirmed ?Type No Known Home Medications 05/15/2504/28 History New Prescriptions to Start Prescriptions: Allergies Allergy/AdvReac Type Severity Reaction Status Date / Time No Known Allergies Allergy Verified 01/18/25 14:57 Exam Data for Last 24 hours Vital signs and Labs for Last 24 Hours: Temp Pulse Resp BP Pulse Ox O2 Del Method 98.1 F 61 18 141/92 H 100 Room Air 05/15/25 21:07 05/15/25 21:07 05/15/25 21:07 05/15/25 21:07 05/15/25 19:30 05/15/25 23:00 Laboratory Results - last 24 hr 05/15/25 19:40: WBC 7.0, RBC 4.89, Hgb 14.4, Hct 42.4, MCV 86.7, MCH 29.4, MCHC 34.0, RDW 13.1, Plt Count 314, MPV 8.9, Neut % (Auto) 45.6, Lymph % (Auto) 42.7, [place] % (Auto) 6.7, Eos % (Auto) 3.7, Baso % (Auto) 1.0, Neut # (Auto) 3.2, Lymph # (Auto) 3.0, [place] # (Auto) 0.5, Eos # (Auto) 0.3, Baso # (Auto) 0.1, Sodium 138, Potassium 4.3, Chloride 102, Carbon Dioxide 29, Anion Gap 11.3, BUN 13, Creatinine 0.90, Estimated Creat Clear 87, Estimated GFR 90, Est GFR ( Amer) 109, Glucose 99, Calcium 9.0, Magnesium 1.8, Total Bilirubin 0.5, AST 28, ALT 17, Alkaline Phosphatase 97, Troponin I < 0.01, NT-Pro-B Natriuret Pep 24.3, Total Protein 7.4, Albumin 4.2, Globulin 3.2, Albumin/Globulin Ratio 1.3, TSH 2.58, Free T4 0.87, HCV Ab TAMANNA w/Rflx PCR Qn Negative, HIV Ag/Ab Combo Qual Negative 05/15/25 19:55: VBG pH 7.36, VBG pCO2 43.9, VBG pO2 38.3, VBG HCO3 24.4, VBG Total CO2 25.7, VBG O2 Saturation 75.4 H, VBG Base Excess -1.1, VBG Lactic Acid 1.5 I & O for Last 24 hours: Intake & Output 05/12/25 05/13/25 05/14/25 05/15/25 23:59 23:59 23:59 23:59 Weight 60.328 kg *Routine HEENT Exam Head: Present normocephalic and atraumatic Eye: Present PERRL ENT: Present mucous membranes moist *Routine Neck Exam Neck: Present supple *Routine Respiratory Exam Respiratory: Present CTA bilaterally *Routine Cardiovascular Exam Cardiovascular: Present Normal S1, Normal S2 and irregular rhythm *Routine Abdominal Exam Abdominal: Present soft and normoactive bowel sounds *Routine Rectal Exam Rectal:: deferred *Routine Genitalia Exam Genitalia:: deferred *Routine Extremities Exam Extremities: Present pulses intact; Absent edema *Routine Skin Exam Skin: Present intact *Routine Neurological Exam Neurological: Present alert, oriented X3 and moving all extremities Routine Psychiatric Exam Psychiatric: Present normal affect Assessment and Plan *Assessment and plan (1) Heart palpitations: Status: Acute Category: Medical Code(s): R00.2 - Palpitations (2) Sick sinus syndrome: Status: Acute Category: Medical Code(s): I49.5 - Sick sinus syndrome (3) Chest pain: Status: Acute Qualifiers: Chest pain type: other chest pain Qualified Code(s): R07.89 - Other chest pain Category: Medical Code(s): R07.9 - Chest pain, unspecified (4) Nicotine dependence: Status: Acute Qualifiers: Nicotine product type: cigarettes Substance use status: uncomplicated Qualified Code(s): F17.210 - Nicotine dependence, cigarettes, uncomplicated Category: Medical Code(s): F17.200 - Nicotine dependence, unspecified, uncomplicated Plan This patient was evaluated in the ER and EKG showed arrhythmia, case was discussed with cardiology who agreed to see them in consult. EKG reviewed, shows Mobitz type II block. We have agreed to admit for further workup and evaluation. He will likely need a pacemaker which would be placed on Saturday. Will monitor on telemetry and repeat troponin. Initial troponin was negative. Will provide nicotine patch. He is not on any home medications and reports no past medical history. He will have DVT prophylaxis. Will be n.p.o. after midnight on Saturday morning. Consult cardiology. Nicotine patch prn.
[2025-05-16] VITALS (8 sets, daily range): BP systolic 112–153; BP diastolic 65–84; PULSE 48–70; RESP 16–17; TEMP 36.5–36.8; O2SAT 95–98; BMI 19.0
[2025-05-16 00:02] LABS: Troponin I < 0.01 ng/ml (0.00-0.034)
[2025-05-16 03:36] LABS: Troponin I < 0.01 ng/ml (0.00-0.034)
--- NOTE | 2025-05-16 03:45 | PC.NURSE ---
Addendum entered by Leticia Burr RN 05/16/25 05:45: Troponin lab series < 0.01 this shift. Heart rate bradycardic (40s to 50s bpm). Original Note: Mr Wesley Joyce was newly admitted this shift on behalf of the documented diagnosis sick sinus syndrome. He is alert and oriented x4. Admission assessments were completed by me this shift; patient stated that he does not take any medications at home. Reports having intermittent shocking, sharp chest pain during felt palpitation episodes. Patient stated that his symptoms have been occurring since this past Saturday. History of loop recorder placement and cardiac ablations. On telemetry, irregular heart rhythm heard upon auscultation. Clear but diminished lung sounds; patient stated that he smokes 1 pack of cigarettes daily. No complaints of dizziness, lightheadedness, nausea, shortness of breath, etc. were made during this shift. He ambulates independently in his room/to the bathroom without any difficulties. No medications were scheduled to be given per MAR this shift. At this time, the patient is continuing to rest in bed with eyes closed, respirations are even and unlabored, and he is in no apparent distress. No acute changes noted thus far. Call light within reach.
[2025-05-16 07:01] LABS: Hematocrit 41.3 % (42.0-52.0); Hemoglobin 13.9 g/dL (14.1-18.0); Immature Granulocytes % 0.3 %; Mean Corpuscular HGB Conc 33.7 g/dL (31.8-35.4); Mean Corpuscular Hemoglobin 29.3 pg (27.0-31.2); Mean Corpuscular Volume 86.9 fl (80-94); Nucleated Red Blood Cells % 0 %; Platelet Count 297 K/mm3 (142-424); Red Blood Count 4.75 M/mm3 (4.60-6.20); Red Cell Distribution Width-SD 41.7 fL; White Blood Count 6.6 K/mm3 (4.8-10.8)
[2025-05-16 07:04] LABS: Chloride 104 mmol/L (98-107); Sodium 136 mmol/L (136-145)
[2025-05-16 07:05] LABS: Potassium 4.4 mmoL/L (3.5-5.1)
[2025-05-16 07:07] LABS: Blood Urea Nitrogen 12 mg/dl (9-20); Creatinine Clearance Estimated 94 mL/min (50-200); Creatinine,Serum 0.80 mg/dl (0.66-1.25); Estimated Glomerular Filt Rate 104 ml/min (>60); GFR (African American) 125 ML/MIN (>60)
[2025-05-16 07:08] LABS: Anion Gap 12.4 mEq/L (5-15); Calcium 8.9 mg/dl (8.4-10.2); Carbon Dioxide 24 mmol/L (22.0-30.0); Glucose 91 mg/dl (74-100)
[2025-05-16 07:09] LABS: Activated Partial Thrombo Time 29.8 seconds (22.8-30.6); INR 1.02 (0.9-1.1); Prothrombin Time 11.3 seconds (10.1-12.5)
--- NOTE | 2025-05-16 14:34 | PC.NURSE ---
patient a/ox4, remains on room air. currently on cardiac diet but will be NPO after midnight. cards consulted for tomorrow. bradycardiac (40s-50s) on tele. patient has had no c/o chest pain or SOB this shift but did state he had felt palpitations this AM. ambulates in room independently. family at bedside call light within reach.
--- NOTE | 2025-05-16 22:40 | P.PN_ITS ---
Subjective *Date: 05/16/25 *Time: 22:40 Interval history: Complains still feeling weak. Feels palpitations occasionally. Denies further dizziness. No nausea or vomiting. Family at bedside. Medical Exam Vital signs and Labs for Last 24 Hours: Vital Signs Temp Pulse Pulse Resp BP Pulse Ox O2 Del Method 05/16/25 20:00 98.1 F 48 L 16 112/70 97 Room Air 05/16/25 18:45 Room Air 05/16/25 17:00 Room Air 05/16/25 16:00 60 05/16/25 16:00 98.0 F 50 L 16 153/74 H 98 Room Air 05/16/25 14:53 Room Air 05/16/25 13:00 Room Air 05/16/25 12:00 70 05/16/25 11:49 98.2 F 48 L 17 134/82 98 Room Air 05/16/25 11:00 Room Air 05/16/25 08:40 Room Air 05/16/25 08:00 50 L 05/16/25 08:00 Room Air 05/16/25 07:56 97.8 F 48 L 16 143/65 H 97 Room Air 05/16/25 06:45 Room Air 05/16/25 05:00 Room Air 05/16/25 04:00 98.0 F 50 L 16 126/69 95 Room Air 05/16/25 04:00 50 L 05/16/25 03:00 Room Air 05/16/25 01:00 Room Air 05/16/25 00:00 70 05/16/25 00:00 97.7 F 51 L 16 132/84 97 Room Air 05/15/25 23:00 Room Air Intake and Output 05/16/25 05/16/25 05/16/25 07:59 15:59 23:59 Intake Total 200 / 1000 440 / 1000 360 / 1000 Output Total 0 / 0 0 / 0 0 / 0 Balance 200 / 1000 440 / 1000 360 / 1000 Intake: Intake, Oral Amount 200 / 1000 440 / 1000 360 / 1000 Output: Output, Urine Amount 0 / 0 0 / 0 0 / 0 Other: Number of Unmeasured Voids 1 1 1 Weight 58.241 kg Patient Weight 05/16/25 23:59 Weight 58.241 kg Laboratory Results - last 24 hr 05/15/25 23:24: Troponin I < 0.01 05/16/25 02:40: Troponin I < 0.01 05/16/25 06:30: WBC 6.6, RBC 4.75, Hgb 13.9 L, Hct 41.3 L, MCV 86.9, MCH 29.3, MCHC 33.7, RDW 13.1, Plt Count 297, MPV 9.0, Neut % (Auto) 51.5, Lymph % (Auto) 35.0, [place] % (Auto) 7.6, Eos % (Auto) 4.4, Baso % (Auto) 1.2, Neut # (Auto) 3.4, Lymph # (Auto) 2.3, [place] # (Auto) 0.5, Eos # (Auto) 0.3, Baso # (Auto) 0.1, PT 11.3, INR 1.02, APTT 29.8, Sodium 136, Potassium 4.4, Chloride 104, Carbon Dioxide 24, Anion Gap 12.4, BUN 12, Creatinine 0.80, Estimated Creat Clear 94, Estimated GFR 104, Est GFR ( Amer) 125, Glucose 91, Calcium 8.9 I & O for Labs for Last 24 Hours: Intake & Output 05/13/25 05/14/25 05/15/25 05/16/25 23:59 23:59 23:59 23:59 Intake Total 1000 / 1000 Output Total 0 / 0 Balance 1000 / 1000 Weight 58.241 kg 58.241 kg Constitutional: Present no acute distress, thin and cooperative Head: Present atraumatic and normocephalic ENT: Present normal exam Respiratory: Present normal respiratory effort; Absent rhonchi or wheezes Cardiac: Present Regular Rhythm and Bradycardia GI: Present soft and normal bowel sounds; Absent distention or tenderness Extremities: Present normal inspection and full ROM Skin: Present intact; Absent erythema Neuro: Present Grossly Intact, alert, awake, oriented x 3 and moves all extremities Assessment and Plan *Assessment and plan (1) Heart palpitations: Status: Acute Category: Medical Code(s): R00.2 - Palpitations (2) Sick sinus syndrome: Status: Suspected Category: Medical Code(s): I49.5 - Sick sinus syndrome (3) Chest pain: Status: Acute Qualifiers: Chest pain type: other chest pain Qualified Code(s): R07.89 - Other chest pain Category: Medical Code(s): R07.9 - Chest pain, unspecified (4) Nicotine dependence: Status: Acute Qualifiers: Nicotine product type: cigarettes Substance use status: uncomplicated Qualified Code(s): F17.210 - Nicotine dependence, cigarettes, uncomplicated Category: Medical Code(s): F17.200 - Nicotine dependence, unspecified, uncomplicated (5) Sinus bradycardia: Status: Chronic Category: Medical Code(s): R00.1 - Bradycardia, unspecified Plan Initial concern for Mobitz type II block however on review, concern for possible sinus bradycardia with PVCs. Discussed case with cardiology, will evaluate in the morning and consider need for pacemaker versus further monitoring. Patient has history significant of previous ablations. Risk for damage to AV node. Continue to monitor on telemetry. Holding on any beta-edvin or calcium channel edvin at this time. - Morning labs normal with normal kidney function, BUN 12, creatinine 0.8. INR 1. Heart rate in the 40s and 50s. Hemoglobin normal at 13.9. - Concern for sick sinus syndrome. Patient does report however that he smokes a pack a day and drinks about 8 Mountain Dew's a day. He has significant stimu lant intake daily. - Patient is thin and very active. Potential for high vagal tone. Differential includes sick sinus syndrome, sinus bradycardia with PVCs, Mobitz type II block. -Echo ordered for the morning, repeat CBC, CMP, magnesium ordered for the morning - Serial troponins negative - Nicotine patch offered, patient declined at this time - Additional concern for possible block secondary to infection. Lyme titer ordered. Full code Regular diet, n.p.o. at midnight Lovenox 40 mg subcu daily
[2025-05-17] VITALS: BP 124/67; PULSE 50; PULSE 53; RESP 16; TEMP 36.4; O2SAT 98
[2025-05-17 04:00] VITALS: BP 130/74; PULSE 45; PULSE 50; RESP 16; TEMP 36.4; O2SAT 96; BMI 19.1
--- NOTE | 2025-05-17 04:18 | PC.NURSE ---
Pt is A&OX4, no complaints voiced. pt has been npo since midnight. Cardiology will see the Pt this Am. Pt has been maryann on the telemetry. is at the bedside. Pt has been resting over night. Call light is within reach. BHARAT ZAMAN RN
--- NOTE | 2025-05-17 06:00 | CA_ITS ---
APPROVED REPORT EXAM: Comprehensive 2D, Doppler, and color-flow Echocardiogram Medical Director Occupational Health: Katie Abebe CRT Ht: 5 ft 8 in Wt: 128lbs BSA: 1.69 BP: 145/80 mmHg Indications: sick sinus syndrome, known PFO, 4 ablations, loop recorder Echo Enhancing Agent Indication: Rule out Shunt Agent(s) / Amount(s) Used: Agitated Saline 5 cc Comments: B/S for Known PFO 2D Dimensions LA Volume 55.00 mL LA Volume Index 31.80 mL/m2 (M/F) 16-34 M-Mode Dimensions RVDd 2.52 cm (0.9-2.6) LA Diam 3.19 cm (1.9-4.0) LVDd 5.19 cm (3.5-5.7) LVDs 3.77 cm (3.5-5.7) IVSd 1.04 cm (0.6-1.1) PWd 0.78 cm (0.6-1.1) EF (Teich) 52.80% FS 27.40% EDV (Teich) 128.90 mL TAPSE 1.18 (<1.7) ESV (Teich) 60.80 mL LV Diastology E Decel Time 303 (160-240 msec) E/A Ratio 0.82 MED A' 12.00 cm/s LAT A' 6.00 cm/s Aortic Valve AO Peak GR. 7.40 mmHg Mitral Valve MV A Velocity 73.0 (40-130 cm/s) E/A Ratio 0.82 Pulmonary Valve PV Peak Velocity 118.0 (50-150 cm/s) Tricuspid Valve TR P. Velocity 355.00 cm/s RAP Estimate 10.00 mmHg RVSP 60.30 mmHg Left Ventricle The left ventricle is normal size. Left ventricular systolic function is mildly reduced. There is normal left ventricular wall thickness. There is mildy global hypokinesis present. The septum is asynchronous. The left ventricular diastolic function is normal. LVEF is 40-45%. Right Ventricle The right ventricle is mildly dilated. The right ventricular systolic function is mildly reduced. Atria The left atrium is mildly dilated. The right atrium is mildly dilated. The interatrial septum appears aneurysmal. Agitated saline administration demonstrates presence of interatrial shunt. Aortic Valve The aortic valve is mildly thickened. There is no hemodynamically significant aortic valvular stenosis. Trace aortic regurgitation is present. Mitral Valve The mitral valve is normal in structure. No evidence of mitral valve stenosis. Mild mitral regurgitation is present. Tricuspid Valve The tricuspid valve leaflets are thin and pliable. Mild tricuspid regurgitation. RVSP is 20-25 mmHg. Pulmonic Valve The pulmonary valve is grossly normal in structure. Trace pulmonic valve regurgitation is present. Great Vessels The aortic root is normal in size. IVC is normal in size and collapses >50% with inspiration. Pericardium There is no pericardial effusion. Other Information Study Quality: Fair Conclusion Mildly reduced LV systolic function (LVEF 40-45%). Asynchronous septum. Mildly dilated RV with mild reduction in RV function. Biatrial dilation. Mild MR, mild TR. The interatrial septum appears aneurysmal. Agitated saline administration demonstrates presence of interatrial shunt. In the setting of reduced biventricular systolic function and interatrial shunt, further evaluation with outpatient RACHAEL and cardiac MRI (shunt / cardiomyopathy protocol) are suggested. Electronically signed by : Akosua Rojas MD 05/17/2025 23:27:30
[2025-05-17 06:35] LABS: Hematocrit 42.1 % (42.0-52.0); Hemoglobin 14.2 g/dL (14.1-18.0); Immature Granulocytes % 0.3 %; Mean Corpuscular HGB Conc 33.7 g/dL (31.8-35.4); Mean Corpuscular Hemoglobin 29.3 pg (27.0-31.2); Mean Corpuscular Volume 86.8 fl (80-94); Nucleated Red Blood Cells % 0 %; Platelet Count 290 K/mm3 (142-424); Red Blood Count 4.85 M/mm3 (4.60-6.20); Red Cell Distribution Width-SD 40.9 fL; White Blood Count 6.6 K/mm3 (4.8-10.8)
[2025-05-17 06:42] LABS: Albumin Level 3.7 g/dl (3.5-5.0); Chloride 104 mmol/L (98-107); Potassium 4.1 mmoL/L (3.5-5.1); Sodium 137 mmol/L (136-145)
[2025-05-17 06:44] LABS: Blood Urea Nitrogen 15 mg/dl (9-20); Creatinine Clearance Estimated 84 mL/min (50-200); Creatinine,Serum 0.90 mg/dl (0.66-1.25); Estimated Glomerular Filt Rate 90 ml/min (>60); GFR (African American) 109 ML/MIN (>60)
[2025-05-17 06:45] LABS: Alanine Aminotransferase 14 U/L (12-78); Albumin/Globulin Ratio 1.2 (1.1-1.8); Alkaline Phosphatase 80 U/L (38-126); Anion Gap 9.1 mEq/L (5-15); Aspartate Amino Transferase 26 U/L (17-59); Bilirubin,Total 0.8 mg/dl (0.2-1.3); Calcium 8.6 mg/dl (8.4-10.2); Carbon Dioxide 28 mmol/L (22.0-30.0); Globulin 3.0 g/dL (1.3-3.2); Glucose 92 mg/dl (74-100); Total Protein,Serum 6.7 g/dl (6.3-8.2)
[2025-05-17 06:46] LABS: Magnesium 2.0 mg/dl (1.6-2.3)
[2025-05-17 07:34] VITALS: BP 149/79; PULSE 60; RESP 16; TEMP 36.4; O2SAT 97
[2025-05-17 08:00] VITALS: PULSE 57
[2025-05-17 11:28] VITALS: BP 142/78; PULSE 60; RESP 16; TEMP 36.6; O2SAT 97
[2025-05-17 12:00] VITALS: PULSE 56
--- NOTE | 2025-05-17 13:32 | EXP.CARD.CON ---
History of Present Illness History of Present Illness Consult date: 05/17/25 Requesting physician: Isai Tobias Chief complaint: Palpitations, weakness History of present illness: Hospitalist note: 49-year-old male patient presents to ER with complaints of irregular heartbeats. He has had these for about 5 or 6 days. He denies shortness of breath. Does have brief chest discomfort when he notices the palpitations. Has history of arrhythmias requiring 4 ablations in the past. He states he did not have any complications with any of those ablations and the last one was 9 years ago done at [facility]. He denies any other medical history. Denies any other symptoms. Department discussed case with cardiology who agreed to see the patient in consult, will likely need pacemaker. Cardiology Note: This is a 49-year-old white male with a past medical history of PFO, frequent PVCs status post 4 cardiac ablations who presented to emergency department with complaints of increased palpitations and generalized weakness for 5 to 6 days. Patient reports episodes of feeling lightheaded and dizzy during activity and palpitations that he feels mostly at rest. He denies shortness of breath. He reports intermittent episodes of chest pain with the palpitations. Patient reports cardiology has tried him on medications in the past that did not work for his PAC/PVCs which is why he has had previous ablations. He believes that his AV node was nicked during the last ablation. He takes no home meds. Serial troponins negative. TSH normal. Lyme titer pending. Other labs essentially unremarkable. EKG upon presentation to ER shows Sinus Maurice with PACs and a few junctional beats. Negative for stemi. Echo is pending. Rhythm strips reviewed from admission which shows frequent PACs Heart rate ranging from low 50s to high 40s. BP is stable. [facility] Disclaimer: The information contained in this section may have been updated after the patient was seen, as this information can be updated by other users. Medical History Edema RIGHT FOOT Dyspnea PFO (patent foramen ovale) Tobacco abuse Surgical History History of loop recorder History of surgery CARDIAC ABLATION X4 H/O foot surgery RIGHT FOOT Family History Other Heart disease Social History (Updated 05/15/25 @ 22:29 by Leticia Burr RN) Smoking Status: Current every day smoker tobacco type: cigarettes packs per day: 1 years smoked: 30 second hand exposure: No alcohol intake: never counseling provided: none substance use type: denies use current occupational status: employed Travel in the last 8 weeks?: None household members: family housing: house current occupation: farm and factory work current occupational exposures/hazards: No caffeine: Yes Review of Systems Review of Systems Review of systems:: pertinent systems reviewed and negative unless documented below *Cardiovascular Cardiovascular: Reports chest pain, Reports palpitations and Reports rapid heart rate *Musculoskeletal Musculoskeletal: Denies numbness *Neurologic Neurologic: Denies localized weakness, Denies memory loss and Denies numbness Psychiatric Psychiatric: Denies memory loss Endocrine Endocrine: Reports palpitations Exam Data for Last 24 hours Vital signs and Labs for Last 24 Hours: Temp Pulse Resp BP Pulse Ox O2 Del Method 97.9 F 60 16 142/78 H 97 Room Air 05/17/25 11:28 05/17/25 11:28 05/17/25 11:28 05/17/25 11:28 05/17/25 11:28 05/17/25 12:53 Laboratory Results - last 24 hr 05/17/25 05:44: WBC 6.6, RBC 4.85, Hgb 14.2, Hct 42.1, MCV 86.8, MCH 29.3, MCHC 33.7, RDW 13.0, Plt Count 290, MPV 9.1, Neut % (Auto) 51.8, Lymph % (Auto) 35.5, [place] % (Auto) 6.8, Eos % (Auto) 4.5, Baso % (Auto) 1.1, Neut # (Auto) 3.4, Lymph # (Auto) 2.3, [place] # (Auto) 0.5, Eos # (Auto) 0.3, Baso # (Auto) 0.1, Sodium 137, Potassium 4.1, Chloride 104, Carbon Dioxide 28, Anion Gap 9.1, BUN 15, Creatinine 0.90, Estimated Creat Clear 84, Estimated GFR 90, Est GFR ( Amer) 109, Glucose 92, Calcium 8.6, Magnesium 2.0 D, Total Bilirubin 0.8, AST 26, ALT 14, Alkaline Phosphatase 80, Total Protein 6.7, Albumin 3.7 D, Globulin 3.0, Albumin/Globulin Ratio 1.2 I & O for Last 24 hours: Intake & Output 05/14/25 05/15/25 05/16/25 05/17/25 23:59 23:59 23:59 23:59 Intake Total 1000 / 1240 240 / 240 Output Total 0 / 0 0 / 0 Balance 1000 / 1240 240 / 240 Weight 128 lb 6.4 oz 128 lb 6.391 oz 129 lb Constitutional Constitutional: no acute distress *Routine Respiratory Exam Respiratory: Present CTA bilaterally and symmetric chest movement *Routine Cardiovascular Exam Cardiovascular: Present Normal S1 and Normal S2 *Routine Abdominal Exam Abdominal: Present soft and normoactive bowel sounds; Absent tenderness *Routine Extremities Exam Extremities: Present full ROM and normal capillary refill; Absent edema *Routine Skin Exam Skin: Present intact, dry and warm Detailed Neck Exam: Thyroids Thyroid: Absent bruit Meds Home Medications and Allergies Home Medications ?Medication ?Instructions ?Recorded ?Confirmed ?Type No Known Home Medications 05/15/25 05/15/25 History New Prescriptions to Start Prescriptions: Allergies Allergy/AdvReac Type Severity Reaction Status Date / Time No Known Allergies Allergy Verified 01/18/25 14:57 Assessment and Plan *Assessment and plan (1) Heart palpitations: Status: Acute Category: Medical Code(s): R00.2 - Palpitations (2) PFO (patent foramen ovale): Status: Chronic Category: Medical Code(s): Q21.12 - Patent foramen ovale (3) Tobacco abuse: Status: Chronic Category: Medical Code(s): Z72.0 - Tobacco use (4) Chest pain: Status: Acute Qualifiers: Chest pain type: other chest pain Qualified Code(s): R07.89 - Other chest pain Category: Medical Code(s): R07.9 - Chest pain, unspecified (5) Bradycardia, unspecified: Status: Acute Category: Medical Code(s): R00.1 - Bradycardia, unspecified Plan Frequent palpitations s/p cardiac ablation x 4 PFO Bradycardia EKG shows SB with frequent PACs and Junctional beats. Rate 51. Concern for possible delta waves in V4-6 concerning for WPW- Per Dr. South. Trops negative TSH normal Lyme titer pending PACs and PVCs noted on strips Rates 40s-50s Offered inpatient pacemaker placement today for symptomatic bradycardia and freq PACs/PVCs (Per Dr. Veloz) vs outpatient eval and device placement by Dr. Logan (earliest saturday), patient would like to go home in 2 week event monitor and be evaluated tomorrow and scheduled for pacemaker placement later this week. He and are agreeable to plan. Patient is agreeable to no driving/working until cleared by cards. Will also needs outpatient ischemic eval, hx of chest pain and current smoker. Official Echo pending Get medical records from EP. CV summary: Patient is CV stable for discharge home. Patient needs to be discharged in a 2-week event monitor and he has an appointment in the cardiology clinic tomorrow at 1300. Patient will be scheduled for outpatient additional testing and pacemaker placement. Will likely need ischemic evaluation. No driving or working until cleared by cardiology. Avoid caffeine and stimulants. Patient is agreeable. Medical records requested from [place].
--- NOTE | 2025-05-17 14:16 | P.DS_ITS ---
General Admission date:: 05/15/25 Discharge date: 05/17/25 HPI HPI HPI: 49-year-old male patient presents to ER with complaints of irregular heartbeats. He has had these for about 5 or 6 days. He denies shortness of breath. Does have brief chest discomfort when he notices the palpitations. Has history of arrhythmias requiring 4 ablations in the past. He states he did not have any complications with any of those ablations and the last one was 9 years ago done at [facility]. He denies any other medical history. Denies any other symptoms. Department discussed case with cardiology who agreed to see the patient in consult, will likely need pacemaker. Hospital Course Hospital Course Hospital Course: Mr. Joyce is a 49-year-old male with significant cardiac history including 4 previous ablations and PFO repair. Presented with frequent palpitations and bradycardia. Initially concern for Mobitz type II heart block. On further review appears of sinus bradycardia with frequent PVCs. Cardiology was consulted for assistance with plan and treatment. Patient was monitored on telemetry. And no syncopal event. Remained hemodynamically stable. Stable discharge home with Holter monitor and close follow-up within the next 2 days for further management as an outpatient including potential pacemaker placement. Problems addressed as follows: Frequent palpitations s/p cardiac ablation x 4 PFO Bradycardia EKG shows SB with frequent PACs and Junctional beats. Rate remained between high 40s and low 60s during admission. Was monitored continuously on telemetry. Cardiology assisted with care. Review of EKG per cardiology showed concern for possible delta waves in V4-6 concerning for WPW. During admission, the patient's troponins remain negative. His TSH was normal. Lyme titer returned after discharge found to be negative. Review of telemetry showed PACs and PVCs. Discussed couple treatment options. The patient was offered inpatient pacemaker placement today for symptomatic bradycardia and freq PACs/PVCs with on-call numerical control machine operator versus outpatient eval and device placement per his regular numerical control machine operator. After discussion, patient would like to discharge home with event monitor and be evaluated in the outpatient setting. Patient and spouse comfo rtable with plan. Discussed return criteria and precautions as an outpatient. Counseled that he should not drive or work until cleared by cardiology. Would also benefit from outpatient ischemic evaluation given some history of chest pain and being a current 1 pack-a-day smoker. Echo obtained with bubble test during admission. Results returned after discharge home showing mild reduction in LV systolic function of 40 to 45%. Asynchronous septum. Mildly dilated RV with mild reduction in RV function. Recommend considering outpatient RACHAEL and cardiac MRI. Patient has follow-up scheduled with cardiology today after discharge. Discharged with Holter monitor. Follow-up with cardiology tomorrow. Plan for pacemaker as an outpatient in the next 1 to 2 weeks Total time spent on discharge 32 minutes in counseling, documentation, chart review, and direct care with patient. Exam Data for Last 24 hours Vital signs and Labs for Last 24 Hours: Temp Pulse Resp BP Pulse Ox O2 Del Method 97.9 F 60 16 142/78 H 97 Room Air 05/17/25 11:28 05/17/25 11:28 05/17/25 11:28 05/17/25 11:28 05/17/25 11:28 05/17/25 12:53 Laboratory Results - last 24 hr 05/17/25 05:44: WBC 6.6, RBC 4.85, Hgb 14.2, Hct 42.1, MCV 86.8, MCH 29.3, MCHC 33.7, RDW 13.0, Plt Count 290, MPV 9.1, Neut % (Auto) 51.8, Lymph % (Auto) 35.5, Casey % (Auto) 6.8, Eos % (Auto) 4.5, Baso % (Auto) 1.1, Neut # (Auto) 3.4, Lymph # (Auto) 2.3, Casey # (Auto) 0.5, Eos # (Auto) 0.3, Baso # (Auto) 0.1, Sodium 137, Potassium 4.1, Chloride 104, Carbon Dioxide 28, Anion Gap 9.1, BUN 15, Creatinine 0.90, Estimated Creat Clear 84, Estimated GFR 90, Est GFR ( Amer) 109, Glucose 92, Calcium 8.6, Magnesium 2.0 D, Total Bilirubin 0.8, AST 26, ALT 14, Alkaline Phosphatase 80, Total Protein 6.7, Albumin 3.7 D, Globulin 3.0, Albumin/Globulin Ratio 1.2 I & O for Last 24 hours: Intake & Output 05/14/25 05/15/25 05/16/25 05/17/25 23:59 23:59 23:59 23:59 Intake Total 1000 / 1240 560 / 560 Output Total 0 / 0 0 / 0 Balance 1000 / 1240 560 / 560 Weight 58.241 kg 58.241 kg 58.513 kg Constitutional Constitutional: no acute distress, thin and cooperative *Routine HEENT Exam Head: Present normocephalic and atraumatic Eye: Present PERRL ENT: Present mucous membranes moist *Routine Respiratory Exam Respiratory: Present CTA bilaterally, wheezes and symmetric chest movement; Absent rhonchi or crackles *Routine Cardiovascular Exam Cardiovascular: Present Normal S1 and bradycardia Comments: occasional ectopy *Routine Abdominal Exam Abdominal: Present soft and normoactive bowel sounds; Absent tenderness *Routine Rectal Exam Patient deferred: visual exam *Routine Exam Patient deferred: penile exam *Routine Extremities Exam Extremities: Present full ROM and normal capillary refill; Absent edema *Routine Skin Exam Skin: Present intact, dry and warm *Routine Neurological Exam Neurological: Present alert, oriented X3 and moving all extremities; Absent altered mental status Detailed Neck Exam: Thyroids Thyroid: Absent bruit Results Data Completed and Pending Labs on day of discharge: Labs from last 24 hours 05/17/25 05:44 WBC 6.6 RBC 4.85 Hgb 14.2 Hct 42.1 MCV 86.8 MCH 29.3 MCHC 33.7 RDW 13.0 Plt Count 290 MPV 9.1 Neut % (Auto) 51.8 Lymph % (Auto) 35.5 Casey % (Auto) 6.8 Eos % (Auto) 4.5 Baso % (Auto) 1.1 Neut # (Auto) 3.4 Lymph # (Auto) 2.3 Casey # (Auto) 0.5 Eos # (Auto) 0.3 Baso # (Auto) 0.1 Sodium 137 Potassium 4.1 Chloride 104 Carbon Dioxide 28 Anion Gap 9.1 BUN 15 Creatinine 0.90 Estimated Creat Clear 84 Estimated GFR 90 Est GFR ( Amer) 109 Glucose 92 Calcium 8.6 Magnesium 2.0 D Total Bilirubin 0.8 AST 26 ALT 14 Alkaline Phosphatase 80 Total Protein 6.7 Albumin 3.7 D Globulin 3.0 Albumin/Globulin Ratio 1.2 DS: Diagnosis Discharge Diagnosis (1) Heart palpitations: Status: Acute Code(s): R00.2 - Palpitations (2) PFO (patent foramen ovale): Status: Chronic Code(s): Q21.12 - Patent foramen ovale (3) Tobacco abuse: Status: Chronic Code(s): Z72.0 - Tobacco use (4) Chest pain: Status: Acute Code(s): R07.9 - Chest pain, unspecified Qualifiers: Chest pain type: other chest pain Qualified Code(s): R07.89 - Other chest pain (5) Bradycardia, unspecified: Status: Acute Code(s): R00.1 - Bradycardia, unspecified (6) History of cardiac ablation: Status: Acute Code(s): Z98.890 - Other specified postprocedural states (7) HFrEF (heart failure with reduced ejection fraction): Status: Acute Code(s): I50.20 - Unspecified systolic (congestive) heart failure Meds Home Medications and Allergies Home Medications ?Medication ?Instructions ?Recorded ?Confirmed ?Type aspirin 81 mg tablet 81 mg PO DAILY #30 tabs 04/2905/18/25 Rx bisoprolol fumarate 2.5 mg tablet 2.5 mg PO DAILY #30 tabs 05/18/25 05/18/25 Rx New Prescriptions to Start Prescriptions: Allergies Allergy/AdvReac Type Severity Reaction Status Date / Time No Known Allergies Allergy Verified 05/18/25 10:18 Discharge Plan Disposition Patient Disposition: Home, Self-Care Condition: Fair Follow up Plan Follow up with: Jaime Dumont PA [Physician [employer] Crm Developer, Cardiology] - 05/18/25 10:00 am Chau Kaur MD [Primary Care Provider, Medical] - 05/25/25 10:15 am Prescriptions/Medication Reconciliation: No Action bisoprolol fumarate 2.5 mg tablet 2.5 mg PO DAILY Qty: 30 2RF aspirin 81 mg tablet 81 mg PO DAILY Qty: 30 2RF Problem Reconciliation Problems Reviewed?: Yes Patient Discharge Instructions ACTIVITY: Continue current activity DIET: continue same diet Patient Instructions: Arrhythmias, Sick Sinus Syndrome Print Language: Arabic Providers Primary Care Provider: Chau Kaur Admit Provider: Isai Tobias Attending Provider: Isai Tobias
--- NOTE | 2025-05-18 09:59 | SW/DCPLANNER ---
Spoke with patient on the phone. Patient stated that he is feeling about the same. Patient stated that he is pulling into the hospital parking lot to go to his cardiology appointment. Patient stated that he is aware of his upcoming appointments. Patient stated that he was not prescribed any new medicine. Patient stated that he has no concerns or questions at this time. Gio Pappas
[2025-05-19 09:13] LABS: Lyme B. burgdorferi PCR Blood Negative (Negative)
== END 2025-05-17 15:08 | disposition home or self-care (01) ==
LOC: ER 21:00 → 2ND 21:00
PROVIDERS: Nurse Practitioner Acute Care; Admitting Provider Internal Medicine Adolescent Medicine; Emergency Provider Student in an Organized Health Care Education/Training Program; PCP Family Medicine; Visit Provider Internal Medicine Adolescent Medicine
DX: I49.5 Sick sinus syndrome (principal); Q21.12 Patent foramen ovale; I48.91 Unspecified atrial fibrillation; I11.0 Hypertensive heart disease with heart failure; R00.1 Bradycardia, unspecified; I50.21 Acute systolic (congestive) heart failure; F17.210 Nicotine dependence, cigarettes, uncomplicated; Z98.890 Other specified postprocedural states; Z79.899 Other long term (current) drug therapy
CPT/HCPCS: 36415; 71045; 80048; 80053; 82803; 83735; 83880; 84439; 84443; 84484; 85025; 85610; 85730; 86803; 87389; 87476; 93005; 93270; 93272; 93306; 99284; G0378; J1650

== ENCOUNTER 2025-05-24 06:18 | Outpatient (CLI) | payer BC, SELFPAY ==
--- NOTE | 2025-05-24 | CA_ITS ---
APPROVED REPORT Exam: Pharmacologic Technologist: Krystal Carlos Ht: 5 ft 8 in Wt: 133 lbs BSA: 1.72 m2 HR: 90 bpm BP: 155/83 mmHg Rhythm: Sinus rhythm Indications: Chest pain, dyspnea Medical History Cardiac Risk Factors: Smoking, FHX of CAD Stress Test Details HR Resting HR: 90 bpm Max Heart Rate (APMHR): 173.243721 bpm Target HR (85% APMHR): 147.263298 bpm Recovery HR: 72 bpm BP Resting BP: 155.0/83.0 mmHg Recovery BP: 141.0/85.0 mmHg ECG Resting ECG: Sinus rhythm Stress ECG Conclusion During lexiscan pt experinced dizziness. No arrhythmias noted. Less than 0.5mm upsloping ST segment. Nondiagnostic ECG/Lexiscan. Electronically signed by : Akosua Rojas MD 05/25/2025 12:29:34
--- OUTSIDE RECORDS SUMMARY | 2025-05-24 06:21 | XMS_ITS | Encounter Summary ---
Author Organization [place] [address] Care Team Providers Care Room Service Associate Name Role Phone David Kaur Primary Care Provider Haim Howell MD Unavailable Encounter Details Date Type Department Care Team (Late st Contact Info) Description 01/11/2016 Orders Only [facility] Ar[facility]ia [facility]tr Edg [address] [facility] [address] [place] [id number] Haim Howell MD [address] [place], [place] [id number] Social History Tobacco Use Types Packs/Day Years Used Date Smoking Tobacco: Every Day Cigarettes 1 21 Smokeless Tobacco: Never Alcohol Use Standard Drinks/Week Comments No 0 (1 standard drink = 0.6 oz pur e alcohol) Sex and Gender Information Value Date Recorded Sex Assigned at Not on file Legal Sex Male 2:15 PM EDT Gender Identity Not on file Sexual Orientation Not on file documented as of this encounter Functional Status * Is the person deaf or does he/she have serious difficulty hearing? Answer Date of Assessment Author No 06/19/2015 12:04 PM Lexie Pinzon RN * Is the person blind or does he/she have serious difficulty seeing even when wearing glasses? Answer Date of Assessment Author No 06/19/2015 12:04 PM Lexie Pinzon RN * Does this person have serious difficulty walking or climbing stairs? Answer Date of Assessment Author No 06/19/2015 12:04 PM Lexie Pinzon RN * Does this person have difficulty dressing or bathing? Answer Date of Assessment Author No 06/19/2015 12:04 PM Lexie Pinzon RN * Because of a physical, mental or emotional condition, does this person have difficulty doing errands alone such as visiting a doctor's office or shopping? Answer Date of Assessment Author No 06/19/2015 12:04 PM Lexie Pinzon RN documented as of this encounter Mental Status * Because of a physical, mental or emotional condition, does this person have serious difficulty concentrating, remembering or making decisions? Answer Entry Date Author No 06/19/2015 12:04 PM Lexie Pinzon RN documented in this encounter Plan of Treatment Not on file documented as of this encounter Procedures Procedure Name Priority Date/Time Associated Diagnosis Comments EP LAB RECORDINGS Routine 01/11/2016 8:02 AM EDT documented in this encounter Results * EP LAB RECORDINGS (01/11/2016 8:02 AM EDT) 01/11/2016 8:02 AM EDT us Haim Howell MD CARDIAC CATH ORDERABLES Final Result Performing Organization Address City/State/[facility] Co de Phone Number [facility] [address] [place] [address] documented in this encounter Visit Diagnoses Not on filedocumented in this encounter Care Teams Room Service Associate Relationship Specialty Start Date End Date David Kaur [address] [facility] [address] [facility] [place] [address] PCP - General Family Medicine 11/07/12 Haim Howell MD [address] [place] [address] Internal Medicine - Clinical Cardiac Electrophysiology 05/20/17 documented as of this encounter
--- OUTSIDE RECORDS SUMMARY | 2025-05-24 06:21 | XMS_ITS | Patient Health Record ---
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 [address] [facility], [address], [place], [place], [id number], Insurance Providers Payer Name Payer Address Payer Phone Subscriber Number Group Number Insured Name Patient Relationship to Insured Coverage Start Date Coverage End Date [employer] [address] [place] [address] [id number] Wesley Joyce Self - patient is the insured Medical (General) History Medical History History ICD Code PFO - followed by Dr. PALUMBO Surgical History Surgery Date(Month/Year) none ablation x4 Lesion Removal - Dr Reed [place] 03/12/2018 R Foot Repair - Bunion Removal - Screws and Plates applied Aug 26, 2019
--- OUTSIDE RECORDS SUMMARY | 2025-05-24 06:21 | XMS_ITS | Clinical Summary ---
Author Organization [facility] Address One [facility] [place] [address] Phone Care Team Providers Care Dike Supervisor Name Role Phone David Kaur Primary Care Provider [phone] Haim Howell MD Unavailable [phone] Allergies No known active allergies Medications No known medications Active Problems Problem Noted Date Diagnosed Date PAC (premature atrial contraction) Overview (03/08/2016): EPS + Premature Atrial Contraction Ablation 01/11/16-Dr. Howell EPS, 3D Mapping, CRYO PAC Ablation 09/20/15-Dr. Howell EPS, 3D mapping, right atrial premature atrial contraction ablation 02/07/2015 SVT (supraventricular tachycardia) Resolved Problems Problem Noted Date Diagnosed Date Resolved Date PVC's (premature ventricular contractions) 06/17/2015 Overview (03/08/2015): 02/07/2015 Immunizations Immunization Administration Dates Next Due Tdap 06/17/2013 Surgical History Surgery Date Site/Laterality Comments ABLATION OF DYSRHYTHMIC FOCUS 02/07/2015 EPS, 3D mapping, right atrial PAC ablation (Dr. Howell) CARDIAC CATHETERIZATION ABLATION OF DYSRHYTHMIC FOCUS 09/20/2015 EPS, 3D Mapping, CRYO PAC Ablation-Dr. Howell ABLATION OF DYSRHYTHMIC FOCUS 01/11/16 EPS & Premature Atrial Contraction Ablation-Dr. 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,observing for now CHF (congestive heart failure) (HCC) Family History Medical History Relation Name Comments Heart Disease Father Heart Disease Mother Anesth Problems Neg Hx Relation Name Status Comments Father Alive Mother Alive Social History Tobacco Use Types Packs/Day Years Used Date Smoking Tobacco: Every Day Cigarettes 1 21 Smokeless Tobacco: Never Tobacco Cessation:Counseling Given: Yes Alcohol Use Standard Drinks/Week Comments No 0 (1 standard drink = 0.6 oz pur e alcohol) Sex and Gender Information Value Date Recorded Sex Assigned at Not on file Legal Sex Male 2:15 PM EDT Gender Identity Not on file Sexual Orientation Not on file Last Filed Vital Signs Vital Sign Reading Time Taken Comments Blood Pressure 106/66 05/20/2017 2:06 PM EDT Pulse 71 05/20/2017 2:06 PM EDT Temperature 36.8 C (98.3 F) 01/11/2016 12:22 PM EDT Respiratory Rate 18 01/11/2016 1:00 PM EDT Oxygen Saturation 96% 05/20/2017 2:06 PM EDT Inhaled Oxygen Concentration - - Weight 59.9 kg (132 lb) 05/20/2017 2:06 PM EDT Height 175.3 cm (5' 9 ) 05/20/2017 2:06 PM EDT Body Mass Index 19.49 05/20/2017 2:06 PM EDT Plan of Treatment Health Maintenance Due Date Last Done Comments Hepatitis B Vaccine (1 of 3 - 19+ 3-dose series) 1996 Annual Wellness Exam 03/18/2016 03/18/2015 (Postponed) Cologuard 2022 Colon Cancer Screening 2022 Colonoscopy 2022 FIT 2022 Sigmoidoscopy 2022 Virtual Colonography 2022 DTaP/TDaP/Td (2 - Td or Tdap) 06/17/2023 06/17/2013 COVID-19 Vaccine ( - 2024-2 6 season) 2025 Influenza Vaccine (#1) 2025 10/16/201 5 (Postponed) Meningococcal B Vaccine Aged Out No l onger eligible based on patient's age to complete this topic Pneumococcal Vaccine 0-49 Aged Out No longer eligible based on patient's age to complete this topic Insurance [facility] [address] [facility] [address] Advance Directives For more information, please contact: [phone] * Full Code (Latest Code Status on File) Date Activated Date Inactivated Comments 06/19/2015 11:11 AM 06/19/2015 4:51 PM Care Teams Dike Supervisor Relationship Specialty Start Date End Date David Kaur [address] [place] [address] PCP - General Family Medicine 11/07/12 Haim Howell MD [address] [place] [address] [place] [address] Internal Medicine - Clinical Cardiac Electrophysiology 05/20/17
--- OUTSIDE RECORDS SUMMARY | 2025-05-24 06:21 | XMS_ITS | Encounter Summary ---
Author Organization [place] [address] Care Team Providers Care Dinkey Engine Mechanic Name Role Phone David Kaur Primary Care Provider Haim Howell MD Unavailable Encounter Details Date Type Department Care Team (Late st Contact Info) Description 05/02/2015 Orders Only SE[facility] Arrhythmia Ctr Edg 711 [facility] [address] [place] [phone] Haim Howell MD [address] [place] [address] Social History Tobacco Use Types Packs/Day Years [...] on file documented as of this encounter Plan of Treatment Not on file documented as of this encounter Procedures Procedure Name Priority Date/Time Associated Diagnosis Comments EP LAB RECORDINGS Routine 05/02/2015 9:56 AM EDT documented in this encounter Results * EP LAB RECORDINGS (05/02/2015 9:56 AM EDT) 05/02/2015 9:56 AM EDT us Haim Howell MD CARDIAC CATH ORDERABLES Edited Result - Final SE LAB 1 [place] [address] documented in this encounter Visit Diagnoses Not on filedocumented in this encounter Care Teams Dinkey Engine Mechanic Relationship Specialty Start Date End Date David Kaur [address] [facility] [address] [place] [address] PCP - General Family Medicine 11/07/12 Haim Howell MD [address] [place] [address] Internal Medicine - Clinical Cardiac Electrophysiology 05/20/17 documented as of this encounter
--- OUTSIDE RECORDS SUMMARY | 2025-05-24 06:21 | XMS_ITS | Encounter Summary ---
Author Organization [place] [address] Care Team Providers Care Accordion Maker Name Role Phone David Kaur Primary Care Provider [phone] Haim Howell MD Unavailable [phone] Encounter Details Date Type Department Care Team (Late st Contact Info) Description 02/07/2015 Orders Only SEP Arrhythmia Ctr Edg 711 [facility] [address] [place] [phone] Haim Howell MD [address] [place], [place] [id number] Social History Tobacco Use Types Packs/Day Years Used Date Smoking Tobacco: Every Day Cigarettes 1 21 Alcohol Use Standard Drinks/Week Comments No 0 [...] Associated Diagnosis Comments EP LAB RECORDINGS Routine 02/07/2015 7:49 AM EDT documented in this encounter Results * ELECTROPHYSIOLOGY LAB RECORDINGS (02/07/2015 7:49 AM EDT) 02/07/2015 7:49 AM EDT us Haim Howell MD CARDIAC CATH ORDERABLES Final Result SE LAB 1 [place] [address] documented in this encounter Visit Diagnoses Not on filedocumented in this encounter Care Teams Accordion Maker Relationship Specialty Start Date End Date David Kaur 12[address] [facility] [address] [place] [address] PCP - General Family Medicine 11/07/12 Haim Howell MD 711 [facility] [place] [address] Internal Medicine - Clinical Cardiac Electrophysiology 05/20/17 documented as of this encounter
--- OUTSIDE RECORDS SUMMARY | 2025-05-24 06:21 | XMS_ITS | Encounter Summary ---
Author Organization [employer] [address] Care Team Providers Care Entertainment Production Professional Name Role Phone David Kaur Primary Care Provider Haim Howell MD Unavailable Encounter Details Date Type Department Care Team (Late st Contact Info) Description 09/20/2015 Orders Only SEP Arrhythmia Ctr Edg 711 [facility] [address] [place] [phone] Haim Howell MD 711 [place], [place] [id number] Social History Tobacco Use Types Packs/Day Years [...] of Assessment Author No 06/19/2015 12:04 PM eLxie Pinzon RN documented as of this encounter [...] Associated Diagnosis Comments EP LAB RECORDINGS Routine 09/20/2015 7:59 AM EST documented in this encounter Results * EP LAB RECORDINGS (09/20/2015 7:59 AM EST) 09/20/2015 7:59 AM EST us Haim Howell MD CARDIAC CATH ORDERABLES Final Result Performing Organization Address City/State/[facility] Co de Phone Number [facility] 1 [place] [address] documented in this encounter Visit Diagnoses Not on filedocumented in this encounter Care Teams Entertainment Production Professional Relationship Specialty Start Date End Date David Kaur [address] [place] [facility] [address] [place] [address] PCP - General Family Medicine 11/07/12 Haim Howell MD 711 [facility] [place] [address] Internal Medicine - Clinical Cardiac Electrophysiology 05/20/17 documented as of this encounter
--- NOTE | 2025-05-24 06:30 | NM_ITS ---
APPROVED REPORT Exam: Nuclear Stress Test Indication: Chest pain, SOB, Tobacco use, Family history Patient Location: Outpatient Stress Tech: Krystal GUO Tech:Chelsea Moya, ARRT, RT (R)(N) Ht: 5 ft 9 in Wt: 130 lbs HR: 76 bpm BP: 155/83 mmHg BSA: 1.72 m2 TID: 1.13 BMI: 19.1 History: Chest pain, SOB, Tobacco use, Family history Procedure: Patient received 0.4 mg of intravenous Lexiscan, resting heart rate 76 bpm, resting blood pressure 155/83 mmHg, with Lexiscan maximum heart rate achieved was 98 bpm which is % of the maximum predicted heart rate and blood pressure was 147/87 mmHg. With Lexiscan, patient denied any complaint of chest pain. Cardiac Stress and Resting SPECT Images: Cardiac Stress and Resting SPECT images were obtained using technetium 99m Myoview 31.6 mCi stress and 10.81 mCi at rest. Resting and stress imaging in supine and prone positions demonstrate a medium sized, moderate, predominantly fixed perfusion defect in the inferior LV wall. There is a small region of reversibility towards the distal inferior LV wall. Gated imaging demonstrates moderate reduction in global LV systolic function. LVEF is calculated at 39%. Conclusion: Medium sized, moderate, predominantly fixed perfusion defect in the inferior LV wall. There is a small region of reversibility towards the distal inferior LV wall. Findings are suggestive of partial reversible ischemia. Gated imaging demonstrates moderate reduction in global LV systolic function. LVEF is calculated at 39%. Electronically signed by : Akosua Rojas MD 05/24/2025 13:16:09
[2025-05-24 08:10] VITALS: BP 152/82; PULSE 58; RESP 14
[2025-05-24] MEDS: SODIUM CHLORIDE 0.9% 10ML SYR (RAD ONLY) 10 ML IV ×2 (12:44→12:45)
[2025-05-24] MEDS: ISOTOPE MYOVIEW (PER STUDY) 1 DOSE IV (12:45)
== END 2025-05-24 23:59 | disposition home or self-care (01) ==
PROVIDERS: PCP Family Medicine; Visit Provider Physician Assistant
DX: I50.20 Unspecified systolic (congestive) heart failure (principal); Q21.12 Patent foramen ovale; R94.39 Abnormal result of other cardiovascular function study; Z72.0 Tobacco use; R07.9 Chest pain, unspecified
CPT/HCPCS: 78452; 93017; 93018; A9502; J2785

== ENCOUNTER 2025-05-27 09:57 | Outpatient (CLI) | payer BC, SELFPAY ==
--- OUTSIDE RECORDS SUMMARY | 2025-05-25 07:15 | XMS_ITS ---
Author Organization [facility] Address 12[address] [facility] [address] [place] [id number] Care Team Providers Care Room Worker Name Role Phone David Kaur Primary Care Provider Allergies No Known Allergies REASON FOR VISIT [facility] D/C Medications Medication SIG (Take, Route, Frequency, Duration) Notes Start Date End Date Status Aspirin 81 MG 1 tablet Orally Once a day Active Bisoprolol Fumarate 2.5 MG 1 tablet Orally Once a day Active Problems Problem Type SNOMED Code ICD Code Onset Dates Problem Status W/U Status Risk Notes Problem Multiple premature ventricular complexes (615315101) 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 [address] [place] [id number] 05/25/2025 David Kaur Palpitations R00.2 ; Frequent PVCs I49.3 ; HFrEF (heart failure with reduced ejection fraction) I50.20 and PFO (patent foramen ovale) Q21.12 Assessments Encounter Date Diagnosis (ICD Code) Assessment Notes Treatment Notes Treatment Clinical Notes Section Notes 05/25/2025 Palpitations (ICD-10 - R00.2) 05/25/2025 Frequent PVCs (ICD-10 - I49.3) 05/25/2025 HFrEF (heart failure with reduced ejection fraction) (ICD-10 - I50.20) Continue follow-up with cardiology 05/25/2025 PFO (patent foramen ovale) (ICD-10 - Q21.12) Plan Of Treatment Medication Medication Name Sig Start Date Stop Date Notes Bisoprolol Fumarate 2.5 MG 1 tablet Orally Once a day Treatment Notes Assessment Notes HFrEF (heart failure with re duced ejection fraction) Continue follow-up with cardiology Next Appt Details Follow Up: with cardiology, Reason: Progress Notes * Wesley MONTEZDOB: 7 (49 yo M)Acc No.[id number]:05/25/2025 Patient: Wesley ADAMS Provider: David Kaur M.D. :1975 A ge:49 Y S ex:Male Date:05/25/2025 Address:[address] [place] [address] Subjective: * Chief Complaints: * 1 . [facility] D/C. * HPI: C ardiology: Tyree has a long standing history of cardiac palpitations and PVCs and has had ablation procedures in the past. He did well for about 9 years and then a couple of weeks ago began having frequent palpitations associated with fatigue and lightheadedness. He presented to the ER and was admitted for observation and possible pacemaker placement. He was started on low-dose beta-edvin. His echo showed decreased EF 40%. After stabilization in the hospital, he was discharged home with plans for outpatient ischemic workup. He had a recent stress test which was abnormal and he was also found to have a PFO. He is to undergo cardiac MRI later this week and then follow-up with cardiology. Generally he has been feeling better with the low-dose beta-edvin with less frequent palpitations. * ROS: D ERMATOLOGY: no R dave. n o H miley. G ASTROENTEROLOGY: no N ausea. n o V omiting. n o D iarrhea.? U ROLOGY: no D ifficulty urinating. n o B lood in urine. * Medical History: P FO - followed by Dr. PALUMBO. * Surgical History: n one , ablation x4 , Lesion Removal - Dr [facility] 03/12/2018, R Foot Repair - Bunion Removal - Screws and Plates applied Aug 26, 2019. * Family History: F ather: alive. M other: alive. P aternal Grand Father: . P aternal Grand Mother: . M aternal Grand Father: . M aternal Grand Mother: . 2 brother(s) , 1 sister(s) - healthy. . * Social History: C URRENT TOBACCO USE S moking Status: Patient does smoke, number of cigarettes per day: 9.?Caffeine: yes, frequency: 3xs a day. Exercise: yes, farming. Home smoke detector use: yes. Marital Status: Single. Occupation: [employer]. Past smoking status: yes, 1 PPD: ,13 years:. Recreational drug use: yes, hunts deer and turkey. Alcohol: No. Sexually active: no.. Travel ouside [place]: no. * Medications: T aking Bisoprolol Fumarate 2.5 MG Tablet 1 tablet Orally Once a day , Taking Aspirin 81 MG Tablet Delayed Release 1 tablet Orally Once a day , Medication List reviewed and reconciled with the patient * Allergies: N .K.D.A. Objective: * Vitals: W t: 139, Temp: 98.2, BP: 120/80, HR: 57, Nurse: pe, Ht: 66, BMI:22.43. * Examination: G eneral Examination: General Appearance: N AD. N gina: n o carotid bruits. H eart: R SR. L ungs: c lear to auscultation. E xtremities: n o leg edema. Assessment: * Assessment: 1. P alpitations - R00.2 (Primary) 2 . F requent PVCs - I49.3 ?3. H FrEF (heart failure with reduced ejection fraction) - I50.20 4 . P FO (patent foramen ovale) - Q21.12 Plan: * Treatment: 2. H FrEF (heart failure with reduced ejection fraction) Notes: Continue follow-up with cardiology * Follow Up: w [facility] cardiology * Images: Billing Information: * Visit Code: 26294 Office Visit, Est Pt., Level 3. * Procedure Codes: * Electronic signature of David Kaur MD on 05/27/2025 at 10:24 AM EDT Sign off status: Pending * Provider: David Kaur M.D. Date: Generated for Jody wilkins/Lori/Latisha on: 10:24 AM EDT History and Physical Notes * HPI (History of Present Illness) Category Sub-Category Detail Notes Category Not es Cardiology Generally he elkins s been feeling better with the low-dose beta-edvin with less frequent palpitations. Examination Category Sub-Category Detail Notes Category Not es General Examination Heart: RSR Lungs: clear to auscultatio n Extremities: no leg edema General Appearance: NAD Neck: no carotid bruits
--- OUTSIDE RECORDS SUMMARY | 2025-05-27 10:24 | XMS_ITS | Encounter Summary ---
Author Organization [place] [address] Care Team Providers Care Hand Rigger Name Role Phone David Kaur Primary Care Provider [phone] Haim Howell MD Unavailable Encounter Details Date Type Department Care Team (Late st Contact Info) Description 02/07/2015 Orders Only SEP Arrhythmia Ctr Edg 711 [facility] [address] [place] [address] Haim Howell MD [address] [place], [place] [id number] Social History Tobacco Use Types Packs/Day Years [...] CATH ORDERABLES Final Result SE LAB 1 [place] [address] documented in this encounter Visit Diagnoses Not on filedocumented in this encounter Care Teams Hand Rigger Relationship Specialty Start Date End Date David Kaur 1210 [facility] [address] [place] [address] PCP - General Family Medicine 11/07/12 Haim Howell MD [address] [facility] [place] [address] Internal Medicine - Clinical Cardiac Electrophysiology 05/20/17 documented as of this encounter
--- OUTSIDE RECORDS SUMMARY | 2025-05-27 10:24 | XMS_ITS | Encounter Summary ---
Author Organization [place] [address] Care Team Providers Care Gas Load Dispatcher Name Role Phone David Kaur Primary Care Provider Haim Howell MD Unavailable Encounter Details Date Type Department Care Team (Late st Contact Info) Description 01/11/2016 Orders Only SEP Arrhythmia Ctr Edg 711 [facility] [address] [place] [address] Haim Howell MD [address] [place], [place] [address] Social History Tobacco Use Types Packs/Day Years [...] Final Result Performing Organization Address City/State/[facility] Co de Phone Number [facility] 1 [place] [address] documented in this encounter Visit Diagnoses Not on filedocumented in this encounter Care Teams Gas Load Dispatcher Relationship Specialty Start Date End Date David Kaur 1210 [facility] [address] [place] [address] PCP - General Family Medicine 11/07/12 Haim Howell MD 7[address] [place] [address] Internal Medicine - Clinical Cardiac Electrophysiology 05/20/17 documented as of this encounter
--- OUTSIDE RECORDS SUMMARY | 2025-05-27 10:24 | XMS_ITS | Patient Health Record ---
Author Organization [facility] Address [address] [place] [id number] Care Team Providers Care Radio Technician Name Role Phone David Kaur Primary Care Provider [phone] Allergies No Known Allergies Reason For Referral No Information Medications Medication SIG (Take, Route, Frequency, Duration) Notes Start Date End Date Status Aspirin 81 MG 1 tablet Orally Once a day Active Bisoprolol Fumarate 2.5 MG 1 tablet Orally Once a day Active Immunizations Vaccine Route Administration Date Status Comme [...] Status W/U Status Risk Notes Problem Meningitis (4039357) Meningitis, unspecified (G03.9) Active confirmed Problem Multiple premature ventricular complexes (076623457) 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) Active confirmed Problem Patent foramen ovale (disorder) (290033374) PFO (patent foramen ovale) (Q21.1) Active confirmed Problem Systolic heart failure (649645651) HFrEF (heart failure with reduced ejection fraction) (I50.20) Active confirmed Problem Patent foramen ovale (disorder) (462745755) PFO (patent foramen ovale) (Q21.12) Active confirmed Vital Signs Heart Rate 57 /min 05/25/2025 Blood pressure diastolic 80 mm Hg 05/25/2025 Height 66 in 05/25/2025 Blood pressure systolic 120 mm Hg 05/25/2025 Weight 139 lbs 05/25/2025 BMI 22.43 kg/m2 05/25/2025 Encounters Encounter Location Date Provider Diagnosis [facility] [address] [place] [id number] 05/25/2025 R Parker Kaur Palpitations R00.2 ; Frequent PVCs I49.3 [...] ovale) (ICD-10 - Q21.12) Plan Of Treatment No Information Insurance Providers Payer Name Payer Address Payer Phone Subscriber Number Group Number Insured Name Patient Relationship to Insured Coverage Start Date Coverage End Date [employer] [employer] [address] [place] [address] [id number] Wesley Joyce Self - patient is the insured Medical (General) History Medical History History ICD Code PFO - followed by Dr. PALUMBO Surgical History Surgery Date(Month/Year) none ablation x4 Lesion Removal - Dr Derek Mills 03/12/2018 R Foot Repair - Bunion Removal - Screws and Plates applied Aug 26, 2019
--- OUTSIDE RECORDS SUMMARY | 2025-05-27 10:24 | XMS_ITS | Encounter Summary ---
Author Organization [place] [address] Care Team Providers Care Boring Machine Operator Vertical Name Role Phone David Kaur Primary Care Provider Haim Howell MD Unavailable [phone] Encounter Details Date Type Department Care Team (Late st Contact Info) Description 09/20/2015 Orders Only SEP Arrhythmia Ctr Edg 711 [facility] [address] [place] [phone] Haim Howell MD 7[address] [place], [place] [phone] Social History Tobacco Use Types Packs/Day Years [...] CATH ORDERABLES Final Result Performing Organization Address City/State/[facility] Co de Phone Number [facility] 1 [place] [address] documented in this encounter Visit Diagnoses Not on filedocumented in this encounter Care Teams Boring Machine Operator Vertical Relationship Specialty Start Date End Date David Kaur [address] [place] [facility] [address] [place] [address] PCP - General Family Medicine 11/07/12 Haim Howell MD 711 [place] [address] Internal Medicine - Clinical Cardiac Electrophysiology 05/20/17 documented as of this encounter
--- OUTSIDE RECORDS SUMMARY | 2025-05-27 10:24 | XMS_ITS | Encounter Summary ---
Author Organization [place] [address] Care Team Providers Care Detail Sergeant Name Role Phone David Kaur Primary Care Provider [phone] Haim Howell MD Unavailable Encounter Details Date Type Department Care Team (Late st Contact Info) Description 05/02/2015 Orders Only SEP Arrhythmia Ctr Edg 711 [facility] [address] [place] [address] Haim Howell MD [address] [place] [address] Social History Tobacco Use Types Packs/Day Years [...] Edited Result - Final SE LAB 1 [place] [address] documented in this encounter Visit Diagnoses Not on filedocumented in this encounter Care Teams Detail Sergeant Relationship Specialty Start Date End Date David Kaur [address] [place] [facility] [address] [place] [address] PCP - General Family Medicine 11/07/12 Haim Howell MD [address] [place] [address] Internal Medicine - Clinical Cardiac Electrophysiology 05/20/17 documented as of this encounter
--- OUTSIDE RECORDS SUMMARY | 2025-05-27 10:24 | XMS_ITS | Clinical Summary ---
Author Organization [facility] Address One [place] [address] Phone Care Team Providers Care Cast Shell Grinder Name Role Phone David Kaur Primary Care Provider [phone] Haim Howell MD Unavailable [phone] Allergies No known active allergies Medications No [...] patient's age to complete this topic Insurance [facility] [address] [facility] [address] Advance Directives For more information, please contact: [phone] * Full Code (Latest Code Status on File) Date Activated Date Inactivated Comments 06/19/2015 11:11 AM 06/19/2015 4:51 PM Care Teams Cast Shell Grinder Relationship Specialty Start Date End Date David Kaur [address] [place] [address] PCP - General Family Medicine 11/07/12 Haim Howell MD [address] [place] [address] [place] [address] Internal Medicine - Clinical Cardiac Electrophysiology 05/20/17
--- OUTSIDE RECORDS SUMMARY | 2025-05-27 10:24 | XMS_ITS | Clinical Summary ---
Author Organization [facility] Address [address] [place] [id number] Care Team Providers Care Partner Marketing Intern Name Role Phone Gen, Non Staff Referal Provider Primary Care Pro vider Source Comments This information has been disclosed to you from confidential records protectedfrom disclosure by state law. You shall make no further disclosure of thisinformation without the specific, written, and informed release of theindividual to whom it pertains, or as otherwise permitted by law. A generalauthorization for the release of medical or other information is not sufficientfor the purposes of therelease of HIV test results or diagnoses. [id number] Allergies No known active allergies Medications aspirin 81 MG EC tablet Take 81 mg by mouth daily. Active Social History Tobacco Use Types Packs/Day Years Used Date Smoking Tobacco: Every Day Cigarettes 0.5 23 Smokeless Tobacco: Never Alcohol Use Standard Drinks/Week Comments No 0 (1 standard drink = 0.6 oz pur e alcohol) Sex and Gender Information Value Date Recorded Sex Assigned at Not on file Legal Sex Male 1:41 PM EDT Gender Identity Not on file Sexual Orientation Not on file Last Filed Vital Signs Vital Sign Reading Time Taken Comments Blood Pressure 109/66 02/14/2017 11:40 AM EDT Pulse 61 02/14/2017 11:40 AM EDT Temperature - - Respiratory Rate 20 01/10/2017 11:38 AM EDT Oxygen Saturation 99% 01/10/2017 11:38 AM EDT Inhaled Oxygen Concentration 99% 01/10/2017 1 1:38 AM EDT Weight 61.2 kg (135 lb) 02/14/2017 11:40 AM EDT Height 175.3 cm (5' 9 ) 02/14/2017 11:40 AM EDT Body Mass Index 19.94 02/14/2017 11:40 AM EDT Plan of Treatment Not on file Insurance [employer] Care Teams Partner Marketing Intern Relationship Specialty Start Date End Date Gen, Non Staff Referal Provider [address] [place] [id number] PCP - General 01/10/17
--- NOTE | 2025-05-27 10:30 | MR_ITS ---
APPROVED REPORT Inspector Exhaust Emissions: CLINICAL INDICATION Known PFO TECHNIQUE Image Acquisition: Cardiac magnetic resonance (CMR) was performed on Siemens Espree MRI 1.5T scanner. Software platform sequences were performed using the Siemens Haileo MR B19 platform. A set of three-plane, low-resolution, large [id number] localizers were initially acquired. Then axial, coronal, sagittal TrueFISP, as well as axial HASTE images, were obtained. These were followed by gated TrueFISP breathold cinematic sequences obtained in the short axis with 8 mm slices and 2 mm gaps, 2-chamber (vertical long axis), 3-chamber, 4-chamber (horizontal long axis). A bolus of contrast was injected intravenously with first-pass sequences obtained in the short axis and four-chamber planes. After approximately 10 minutes, a TI brand development manager sequence was performed to determine the optimal TI time. Using the optimized TI time, delayed contrast enhancement segmented inversion???recovery TurboFLASH sequences were obtained in the short axis, 2-chamber, 3-chamber, and 4-chamber projections. 2D-velocity phase mapping was performed. Functional parameters were calculated by offline analysis on an independent workstation ([employer] Imaging Platform, [employer]). Contrast: ProHance??? (Gadoteridol) FINDINGS MORPHOLOGY AND FUNCTION Left ventricle: The left ventricle is normal in size. The indexed left ventricular end-diastolic volume (LVEDVi) is 90 ml/m2 (range 57-105 ml/m2 in males, 56-96 ml/m2 in females). Low-normal left ventricular systolic function is present. There is normal left ventricular wall thickness. The septum is asynchronous. There are no regional wall motion abnormalities noted. LVEF is calculated at 52.0% (reference range 57-77%). Right ventricle: The right ventricle is mildly dilated. The indexed right ventricular end-diastolic volume (RVEDVi) is 93 ml/m2 (range 61-121 ml/m2 in males, 48-112 ml/m2 in females). There is mild reduction in right ventricular systolic function. RVEF is calculated at 43.7% (reference range 52-72% in males, 51-71% in females). Atria: The left atrium is mildly dilated. The maximum indexed left atrial volume is 41 ml/m2 (reference range 26-52 ml/m2 in males, 27-53 ml/m2 in females). The right atrium is mildly dilated. The maximum indexed right atrial volume is 40 ml/m2 (reference range 18-90 ml/m2). The interatrial septum appears aneurysmal. Aorta: The diameter of the aortic annulus is normal, measuring 26 mm (coronal view reference range 21-30 mm in males, 19-27 mm in females). The diameter of the aortic sinus is normal, measuring 28 mm (coronal view reference range 25-42 mm in males, 24-36 mm in females). The diameter of the sinotubular junction is normal, measuring 27 mm (coronal view reference range 18-32 mm in males, 18-28 mm in females). The diameters of the ascending and descending thoracic aorta are normal. Main pulmonary artery: The main pulmonary artery diameter is normal. Pericardium: The pericardial thickness is normal. The pericardial thickness measures 1.8 mm (normal < 4.0 mm). There is no pericardial effusion. VALVES The valvular morphologies in the visualized sequences appear normal. There is no significant valvular stenosis or regurgitation of the mitral, aortic, tricuspid, or pulmonic valve noted visually. Systolic anterior motion of the mitral valve is not visualized. Ratio of pulmonary to systemic flow, Qp:Qs ratio = 1.0 (normal < or = 1.2, hemodynamically significant shunt > 1.5), demonstrating no clear evidence of hemodynamically significant shunt, but is nonetheless not accurate in the setting of difficult sampling and voxel registration during image acquisition. TISSUE CHARACTERIZATION Resting Perfusion: Normal myocardial blood flow at rest. No evidence of resting hypoperfusion. Myocardial Fibrosis and/or edema: Normal gadolinium kinetics are present. No evidence of late gadolinium enhancement is noted, consistent with absence of myocardial scarring, infarction, or necrosis. T2-weighted imaging demonstrates no evidence of myocardial edema or inflammation. OTHER No other significant findings are noted. However, this exam is focused on the cardiac structure and function. IMPRESSION Normal LV size with low-normal LV systolic function. LVEDVi= 90 ml/m2 and LVEF= 52.0%. Asynchronous septum. Milldy dilated RV with mildly reduced RV systolic function. RVEDVi= 93 ml/m2 and RVEF= 43.7%. Biatrial enlargement. The interatrial septum is aneurysmal. No CMR evidence of myocardial scarring, infarction, or necrosis. No evidence of myocardial edema or inflammation. Perfusion analysis demonstrates normal blood flow at rest with no evidence of resting hypoperfusion. Ratio of pulmonary to systemic flow, Qp:Qs ratio = 1.0 [not accurate] (normal < or = 1.2, hemodynamically significant shunt > 1.5), demonstrating no clear evidence of hemodynamically significant shunt, but is nonetheless not accurate in the setting of difficult sampling and voxel registration during image acquisition. This CMR demonstrates low-normal LV systolic function, with mildly dilated RV and mild reduction in RV function in the setting of known PFO and aneurysmal interatrial septum. The Qp:Qs ratio is inaccurate in this study. Therefore, in the setting of PFO and mild LV dysfunction, early referral for possible PFO closure is suggested. COMPARISON None CRITICAL RESULT None COMMUNICATION As above The findings of this cardiac MR were reviewed, reported, and signed by Kayden Rojas MD (Hospital Administrator). Conclusion Electronically signed by : Akosua Rojas MD 06/09/2025 00:13:33
[2025-05-27] MEDS: GADOTERIDOL INJ 20ML SYRINGE 13 ML IV (12:33)
[2025-05-27] MEDS: SODIUM CHLORIDE 0.9% 10ML SYR (RAD ONLY) 10 ML IV (12:33)
== END 2025-05-27 23:59 | disposition home or self-care (01) ==
LOC: RAD 09:57
PROVIDERS: PCP Family Medicine; Visit Provider Physician Assistant
DX: I50.20 Unspecified systolic (congestive) heart failure (principal); Q21.12 Patent foramen ovale; I25.3 Aneurysm of heart; R93.1 Abnormal findings on diagnostic imaging of heart and coronary circulation
CPT/HCPCS: 75561; A9576

== ENCOUNTER 2025-06-14 07:55 | Day surgery (SDC) | payer BC, SELFPAY ==
[2025-06-14] VITALS (13 sets, daily range): BP systolic 99–161; BP diastolic 53–94; PULSE 46–70; RESP 15–20; TEMP 36.6; O2SAT 91–99; BMI 20.8
--- NOTE | 2025-06-14 07:04 | IR_ITS ---
APPROVED REPORT Patient Location: Outpatient PROCEDURES Left heart catheterization Left ventriculogram Selective coronary angiogram INDICATION Cardiomyopathy ejection fraction 39% Informed consent was obtained prior to the procedure. COMPLICATIONS NONE Estimated Blood Loss: LESS THAN 10 ML TECHNIQUE One percent lidocaine used to anesthetize the right anterior aspect of the wrist. The right radial artery was accessed via the Seldinger technique. A 6 Khmer sheath was placed in the right radial artery. 2.5 mg of Verapamil, 800 mcg of nitroglycerin, 1mg Lidocaine and 5000 U Heparin were given through the arterial sheath. The JL3 catheter was also used to perform left heart catheterization, left ventriculogram and selective coronary angiogram. At the end of the procedure the sheath was removed good hemostasis was achieved using Traclet band, patient was transferred to the postop holding area in stable condition. ANGIOGRAPHIC RESULTS The left main artery Normal The left anterior descending artery Normal The circumflex artery Normal The right coronary artery Normal The SORTO ventriculogram reveals Dilated globally hypokinetic ejection fraction 35 to 40% The left ventricular end-diastolic pressure 15 mmHg IMPRESSION Normal coronary arteries Reduced ejection fraction Normal LVEDP PLAN 1. Workup metabolic etiologies for cardiomyopathy 2. Cardiac MRI 3. GDMT for LV dysfunction Electronically signed by : Chapito Logan MD 06/14/2025 10:07:14
[2025-06-14 08:22] LABS: Hematocrit 42.9 % (42.0-52.0); Hemoglobin 14.5 g/dL (14.1-18.0); Immature Granulocytes % 0.3 %; Mean Corpuscular HGB Conc 33.8 g/dL (31.8-35.4); Mean Corpuscular Hemoglobin 29.4 pg (27.0-31.2); Mean Corpuscular Volume 86.8 fl (80-94); Nucleated Red Blood Cells % 0 %; Platelet Count 300 K/mm3 (142-424); Red Blood Count 4.94 M/mm3 (4.60-6.20); Red Cell Distribution Width-SD 40.7 fL; White Blood Count 7.3 K/mm3 (4.8-10.8)
[2025-06-14 08:31] LABS: Anion Gap 7.2 mEq/L (5-15); Blood Urea Nitrogen 12 mg/dl (9-20); Calcium 9.4 mg/dl (8.4-10.2); Carbon Dioxide 29 mmol/L (22.0-30.0); Chloride 105 mmol/L (98-107); Creatinine Clearance Estimated 80 mL/min (50-200); Creatinine,Serum 1.00 mg/dl (0.66-1.25); Estimated Glomerular Filt Rate 80 ml/min (>60); GFR (African American) 97 ML/MIN (>60); Glucose 92 mg/dl (74-100); Potassium 4.2 mmoL/L (3.5-5.1); Sodium 137 mmol/L (136-145)
[2025-06-14] MEDS: HEPARIN 1,000 UNITS/500ML NS (CATH LAB) 3000 UNIT IV (09:41)
[2025-06-14] MEDS: LIDOCAINE 1% 10ML MDV 10 ML IJ (09:41)
[2025-06-14] MEDS: NITROGLYCERIN 800MCG/8ML SYR (CATH LAB) 800 MCG IA (09:41)
[2025-06-14] MEDS: VERAPAMIL 2.5MG/ML 2ML VIAL 2.5 MG IV (09:42)
[2025-06-14] MEDS: HEPARIN 1,000 UNITS/ML 10ML VIAL (CATH LAB) 5000 UNIT IV (09:42)
[2025-06-14] MEDS: 0.9 % SODIUM CHLORIDE 500 ML 25 ML IV (09:42)
[2025-06-14] MEDS: MIDAZOLAM HCL 1MG/ML 5ML VIAL 1 MG IV (09:43)
[2025-06-14] MEDS: FENTANYL 100MCG/2ML VIAL 50 MCG IV (09:43)
[2025-06-14] MEDS: IOPAMIDOL-370 (76%);100ML BOTTLE 50 ML IV (10:23)
== END 2025-06-14 13:00 | disposition home or self-care (01) ==
PROVIDERS: PCP Family Medicine; Visit Provider Internal Medicine
PROC: 4A023N7 Measurement of Cardiac Sampling and Pressure, Left Heart, Percutaneous Approach (ICD-10-PCS; CPT 93452; principal; 2025-06-14 09:30)
DX: I42.9 Cardiomyopathy, unspecified (principal); R94.39 Abnormal result of other cardiovascular function study; I50.20 Unspecified systolic (congestive) heart failure; I49.1 Atrial premature depolarization; R07.9 Chest pain, unspecified; Q21.12 Patent foramen ovale; F17.210 Nicotine dependence, cigarettes, uncomplicated; Z79.82 Long term (current) use of aspirin; Z79.899 Other long term (current) drug therapy; Z82.49 Family history of ischemic heart disease and other diseases of the circulatory system
CPT/HCPCS: 80048; 85025; 93458; 99152; C1769; C1887; J1200; J1644; J3010; J7040; Q9967

== ENCOUNTER 2025-06-22 09:33 | Day surgery (SDC) | payer BC, SELFPAY ==
--- NOTE | 2025-06-22 07:04 | IR_ITS ---
APPROVED REPORT Patient Location: Outpatient PROCEDURES 1. Pocket formation for Permanent Pacemaker Placement. 2. Placement of an atrial sensing and pacing coil into the right atrial appendage. 3. Placement of a ventricular sensing and pacing coil in the right ventricular apex. 4. Permanent Pacemaker Placement. 5. Removal of implantable loop recorder INDICATION Sick sinus syndrome, 44,000 PACs, Intolerance to beta-blockers due to bradycardia, Symptomatic bradycardia, Syncope Informed consent was obtained prior to the procedure. COMPLICATIONS NONE Estimated Blood Loss: LESS THAN 10 ML TECHNIQUE 1% Lidocaine with epinephrine used to anesthetized the left anterior aspect of the chest. Scalpel was used to make the initial cutaneous incision while electrocautery was used to dissect down tinto the fascia. The fascia was lifted off the pectoralis muscle and digitally manipulated creating a pocket for the pacemaker. The patient was then placed in Trendelenburg position and the subclavian vein was accessed twice via the Selinger technique, there are two wires in the vein. A 6 Libyan sheath was placed under fluoroscopic guidance into the subclavian vein over one of the wires while keeping the other wire in place within the subclavian vein. The dilator was removed from the sheath. Using fluoroscopic guidance, the ventricular lead was placed into the right ventricular apex, screwed and secured into place. Electronic interrogation proved acceptable thresholds and voltage within the lead. Using 3-0 silk, the ventricular lead was then secured into place. Lead was secured to the facia using the 3-0 silk. Following this, the sheath was pealed away. An additional 6 Libyan fresh sheath and dilator was placed over the existing wire. Using fluoroscopic guidance, the atrial lead was the placed into the right atrial appendage and screwed and secured in place. Electrical interrogation demonstrated acceptable thresholds and voltage number. The atrial lead was then secured into place using 3-0 silk. 1 gram of Ancef was used to flush the pocket. Following the pacemaker generator being secured to the fascia and in place, Monocryl was used to close the subcutaneous layers while joon were used to close the cutaneous layer. A pressure dressing was placed and the patient was transferred to the postop holding area in stable condition for postoperative care. After the incision was sterilely prepped and bandaged a scalpel was used to make an incision at the proximal tip of the loop recorder. Hemostats were used to grab the loop recorder and removed. Steri-Strips were used to close the wound INTERROGATION Generator Model number: [id number] Generator Serial number: [id number] Atrial lead model number: [id number] Atrial lead serial number: [id number] P-wave: 3.5mV Impedance: 510ohms Threshold: 0.7V@0.4ms Right Ventricular lead model number: [id number] Right Ventricular lead serial number: [id number] R-wave: 8.5-9.0mV Impedance: 0.75V@0.4ms Threshold: 610ohms Pacing Parameters: Mode: DDDR Base/Max Track:70 ppm / 130 ppm No diaphragmatic stimulation at 10 volts. IMPRESSION 1. Successful pocket formation for Permanent Pacemaker Placement. 2. Successful placement of an atrial sensing and pacing coil into the right atrial appendage. 3. Successful placement of a ventricular sensing and pacing coil in the right ventricular apex. 4. Successful permanent Pacemaker Placement. 5. Successful removal of implantable loop recorder PLAN 1. Postop wound care. 2. Bystolic 10 mg daily will be started for suppression of PACs Electronically signed by : Chapito Logan MD 06/22/2025 15:00:27
[2025-06-22 09:48] LABS: Hematocrit 44.9 % (42.0-52.0); Hemoglobin 15.1 g/dL (14.1-18.0); Immature Granulocytes % 0.5 %; Mean Corpuscular HGB Conc 33.6 g/dL (31.8-35.4); Mean Corpuscular Hemoglobin 29.1 pg (27.0-31.2); Mean Corpuscular Volume 86.5 fl (80-94); Nucleated Red Blood Cells % 0 %; Platelet Count 326 K/mm3 (142-424); Red Blood Count 5.19 M/mm3 (4.60-6.20); Red Cell Distribution Width-SD 40.3 fL; White Blood Count 5.7 K/mm3 (4.8-10.8)
[2025-06-22 10:01] VITALS: BP 149/97; PULSE 64; PULSE 87; RESP 18; TEMP 36.6; O2SAT 97
[2025-06-22 10:04] LABS: Chloride 104 mmol/L (98-107); Potassium 4.5 mmoL/L (3.5-5.1); Sodium 141 mmol/L (136-145)
[2025-06-22 10:07] LABS: Anion Gap 14.5 mEq/L (5-15); Blood Urea Nitrogen 11 mg/dl (9-20); Calcium 9.4 mg/dl (8.4-10.2); Carbon Dioxide 27 mmol/L (22.0-30.0); Creatinine,Serum 1.00 mg/dl (0.66-1.25); Estimated Glomerular Filt Rate 80 ml/min (>60); GFR (African American) 97 ML/MIN (>60); Glucose 93 mg/dl (74-100)
[2025-06-22] MEDS: LIDOCAINE 1% W/EPI 1:100,000 20ML VIAL 20 ML SQ (11:32)
[2025-06-22] MEDS: 0.9 % SODIUM CHLORIDE 1000ML 1,000 ML 25 ML IV (11:33)
[2025-06-22 12:40] VITALS: BMI 21.1
--- NOTE | 2025-06-22 12:41 | XR_ITS ---
FINAL REPORT CLINICAL HISTORY: Confirm pacemaker/AID placement COMPARISON: 05/15/2025 FINDINGS: A portable view of the chest was obtained. A left-sided pacemaker is present. Cardiac and mediastinal silhouettes are within normal limits. The lungs are clear. There is no pleural effusion or pneumothorax. IMPRESSION: No acute process on this portable exam. Left-sided pacemaker in place. Reviewed, Interpreted and Dictated by Cris Alejandro MD Transcribed by Gracia Wilson Authenticated and [facility]
[2025-06-22 12:50] VITALS: BP 129/77; PULSE 70; RESP 18; O2SAT 96
[2025-06-22 13:04] VITALS: BP 129/81; PULSE 70; RESP 18; O2SAT 97
--- NOTE | 2025-06-22 13:08 | P.PNANES_ITS ---
[facility] Disclaimer: The information contained in this section may have been updated after the patient was seen, as this information can be updated by other users. Medical History Edema RIGHT FOOT Dyspnea PFO (patent foramen ovale) Tobacco abuse Surgical History History of loop recorder History of surgery CARDIAC ABLATION X4 H/O foot surgery RIGHT FOOT Family History Other Heart disease Social History (Updated 06/22/25 @ 10:02 by Denilson Smith RN) Smoking Status: Current every day smoker tobacco type: cigarettes packs per day: 1 years smoked: 30 second hand exposure: No alcohol intake: never counseling provided: none substance use type: denies use current occupational status: employed Travel in the last 8 weeks?: [place] the [place] household members: family housing: house current occupation: farm and factory work current occupational exposures/hazards: No caffeine: Yes Have you lived/traveled outside [place] in past 30 days?: No Contact w/someone who lives/traveled outside US past 30 days?: No Exposure to someone with infectious disease in past 14 days?: No Do you have a fever (greater than 100.4 F or 38 C)?: No Have you tested positive for COVID-19?: No Exposed to someone with COVID-19 in past 14 days?: No Do you have a sore throat?: No Do you have a cough?: No Do you have any weakness?: No Do you have any diarrhea?: No Are you experiencing any unusual bleeding?: No Do you have any muscle aches/pain?: No Do you have any abdominal pain?: No Are you experiencing loss of taste or smell?: No [facility] Anesthesia Checklist Patient Identification Patient Identification: Arm Band and Family Structural Data Admitted From: Home Planned Operative Procedure/s: Pacemaker Consent for Planned Operative Procedure(s) Verified: Yes Verified Documents: Surgical Consent and History and Physical NPO Status Verified Time NPO: 00:00 Additional verifications Patient : No Anesthesia Reactions: No Hx Blood Transfusions: No Blood Transfusion Reaction: No Cephalosporin Allergy: No Previous Colonoscopy: No Airway Assessment Mallampati Score:: Class I C-Spine Mobility Assessed: Yes TMJ Mobility Assessed: Yes Dentition: Good Dentition Neurological Assessment Level of Consciousness: Awake, Alert, Appropriate and Follows Commands Hx Seizures: No Numbness or tingling in extremities: No Anesthesia Plan Anesthesia Risk discussed: Yes ASA Class: II Anesthesia Type: MAC
[2025-06-22 13:20] VITALS: BP 143/85; PULSE 70; RESP 18; O2SAT 99
[2025-06-22 13:35] VITALS: BP 139/89; PULSE 74; RESP 18; O2SAT 98
[2025-06-22 13:49] VITALS: BP 139/89; PULSE 70; O2SAT 98
== END 2025-06-22 14:14 | disposition home or self-care (01) ==
PROVIDERS: PCP Family Medicine; Visit Provider Internal Medicine
PROC: (CPT 33208; principal; 2025-06-22 13:30)
DX: I49.5 Sick sinus syndrome (principal); I50.20 Unspecified systolic (congestive) heart failure; I11.0 Hypertensive heart disease with heart failure; R00.1 Bradycardia, unspecified; R55 Syncope and collapse; G47.9 Sleep disorder, unspecified; Q21.12 Patent foramen ovale; I49.1 Atrial premature depolarization; R06.83 Snoring; F17.210 Nicotine dependence, cigarettes, uncomplicated; Z79.82 Long term (current) use of aspirin; Z79.899 Other long term (current) drug therapy; Z82.49 Family history of ischemic heart disease and other diseases of the circulatory system
CPT/HCPCS: 33208; 33286; 36415; 71045; 80048; 85025; C1785; C1898; J1200; J2004; J2250; J2704; J3010; J7030

== ENCOUNTER 2025-06-23 14:20 | Emergency (ER) | payer BC, SELFPAY ==
--- NOTE | 2025-06-23 14:24 | ED_ITS ---
<Statement entered by Diana Martinez DO - 06/23/25 17:23> I was consulted by the SABA, and we discussed the complexity of problems being addressed. I approve the treatment and management plan for this patient's care in the emergency department, thus performing a substantial portion of the medical decision making. Diana Martinez DO Discharge Plan Disposition Patient Disposition: Home, Self-Care Condition: Good Prescriptions Prescriptions: New methocarbamol 500 mg tablet 500 mg PO .prn at night Qty: 20 0RF No Action aspirin 81 mg tablet 81 mg PO DAILY Qty: 30 2RF nebivolol [Bystolic] 10 mg Tablet 10 mg PO DAILY Qty: 30 3RF Referrals Follow up/Referrals: Chau Kaur MD [Primary Care Provider, Medical] - See instructions Activity Restrictions/Add. Instructions Additional Instructions/Restrictions: Please follow-up with your edi manager and primary care provider as scheduled. You may use the muscle relaxer for any additional chest wall pain after the procedure. These may induce drowsiness so you may take them at night to help with rest if you are having pain. Please return to the emergency department with any worsening of current complaints such as other chest pain radiating into your neck, shoulder, arm, or back, shortness of breath, or for any other emergent medical complaints or concerns. Clinical Impressions Clinical Impression: Chest wall pain following surgery Instructions Patient Instructions: DI for Postoperative Pain Print Language Print Language: Guamanian Discharge ED Provider: Diana Martinez [facility] General Chief Complaint: PAIN Stated Complaint: Chest tightness 06/22 Time Seen by Provider: 06/23/25 14:23 History of Present Illness HPI narrative: Patient is a pleasant 49-year-old male who presents to the emergency department with his with concerns for pain around placement of the pacemaker that he had inserted approximately 24 hours ago. Patient states that he felt a pinch in the area of the pacemaker twice last night and then the third time he felt like it was an electric shock. Patient and his contacted the edi manager and the edi manager instructed him to come to the emergency department for evaluation. Patient also requests a change of the dressing since the existing bandage and dressing is bloody and wet under the Tegaderm. Patient denies any fever and denies any other complaints; patient states that aside from the 3 episodes that were painful last night he has felt better in the past day than he has in a long time. Patient denies any chest pain, shortness of breath, abdominal pain. Related Data Previous Rx's ?Medication ?Instructions ?Recorded aspirin 81 mg tablet 81 mg PO DAILY #30 tabs 04/29 08/22 nebivolol 10 mg tablet (Bystolic) 10 mg PO DAILY #30 t abs 06/22/25 methocarbamol 500 mg tablet 500 mg PO .prn at night #2 0 tabs 06/23/25 Allergies Allergy/AdvReac Type Severity Reaction Status Date / Time No Known Allergies Allergy Verified 06/16/25 11:02 [facility] Disclaimer: The information contained in this section may have been updated after the patient was seen, as this information can be updated by other users. Medical History Edema Dyspnea PFO (patent foramen ovale) Tobacco abuse Surgical History History of loop recorder History of surgery H/O foot surgery Family History Other Heart disease Social History Smoking Status: Current every day smoker tobacco type: cigarettes packs per day: 1 years smoked: 30 second hand exposure: No alcohol intake: never counseling provided: none substance use type: denies use current occupational status: employed Travel in the last 8 weeks?: Inside the [place] household members: family housing: house current occupation: farm and factory work current occupational exposures/hazards: No caffeine: Yes Have you lived/traveled outside US in past 30 days?: No Contact w/someone who lives/traveled outside US past 30 days?: No Exposure to someone with infectious disease in past 14 days?: No Do you have a fever (greater than 100.4 F or 38 C)?: No Have you tested positive for COVID-19?: No Exposed to someone with COVID-19 in past 14 days?: No Do you have a sore throat?: No Do you have a cough?: No Do you have any weakness?: No Do you have any diarrhea?: No Are you experiencing any unusual bleeding?: No Do you have any muscle aches/pain?: No Do you have any abdominal pain?: No Are you experiencing loss of taste or smell?: No Other Medical History Have you received the Flu Vaccine for this season: No Have you received the Pneumonia Vaccine: No ROS Obtained: Yes Systems reviewed as appropriate & no additional complaints except as documented Physical Exam General General appearance: alert and in no apparent distress Head Head exam: atraumatic, normocephalic and normal inspection Eye Eye exam: Present normal appearance, PERRL and EOMI ENT ENT exam: Present normal exam, normal oropharynx and mucous membranes moist Neck Neck exam: Present normal inspection, full ROM and trachea midline; Absent tenderness Chest Chest inspection: Present symmetric chest wall rise and tenderness; Absent rash or abscess Expanded Chest Exam Trauma: Present surgical incision (Dressing and bandage from yesterday's pacemaker insertion was soaked with blood and the Tegaderm appeared to be wet. Area around the incision remains tender.) Respiratory Respiratory exam: Present normal lung sounds bilaterally; Absent respiratory distress, wheezes, stridor or accessory muscle use Cardiovascular Cardiovascular exam: Present regular rate, normal rhythm and normal heart sounds; Absent bradycardia, tachycardia or irregular rhythm Abdominal Exam Abdominal exam: Present soft and normal bowel sounds; Absent distention, tenderness, guarding or rigidity Extremities Exam Extremities exam: Present normal inspection and full ROM Neurological Exam Neurological exam: Present alert and oriented X3 Psychiatric Psychiatric exam: Present normal affect and normal mood Skin Skin exam: Present warm and dry HEART Score HEART Score HEART Score assessment performed?: Yes History (anamnesis): Slightly suspicious ECG: Normal Age: 45-65 years Risk factors: 3 or more risk factors Troponin: </= normal limit HEART Score: 3 (HEART score obtained; patient's complaint today determined to be musculoskeletal chest wall pain and not cardiac related.) Critical Care Critical Care Time Critical Care Time: No Medical Decision Making Medical Records Medical records reviewed: Yes I reviewed the patient's medical records. [place] Inquiry Pt receiving controlled substance: No Vital Signs Vital Signs: 06/23/25 14:31 06/23/25 16:26 Temperature 98.0 F 98 F Temperature Source Oral Oral Pulse Rate 70 Pulse Rate [Radial] 70 Respiratory Rate 18 16 Blood Pressure 127/88 Blood Pressure [Right Arm] 133/93 H Blood Pressure Mean [Right Arm] 106 Blood Pressure Source Automatic Cuff Blood Pressure Source [Right Arm] Automatic Cuff Blood Pressure Position Sitting Blood Pressure Position [Right Arm] Sitting 02 Sat by Pulse Oximetry 98 Oxygen Delivery Method Room Air Room Air Lab Data Lab results reviewed: Yes I reviewed the patient's lab results. Labs: Lab Results 06/23/25 14:30: WBC 10.9 H D, RBC 5.06, Hgb 14.5, Hct 44.2, MCV 87.4, MCH 28.7, MCHC 32.8, RDW 13.1, Plt Count 314, MPV 8.6, Neut % (Auto) 63.3, Lymph % (Auto) 27.1, [place] % (Auto) 7.2, Eos % (Auto) 1.6, Baso % (Auto) 0.5, Neut # (Auto) 6.9, Lymph # (Auto) 3.0, [place] # (Auto) 0.8, Eos # (Auto) 0.2, Baso # (Auto) 0.1, S odium 134 L, Potassium 4.4, Chloride 103, Carbon Dioxide 28, Anion Gap 7.4, BUN 15 D, Creatinine 1.00, Estimated Creat Clear 79, Estimated GFR 80, Est GFR ( Amer) 97, Glucose 104 H, Calcium 9.4, Total Bilirubin 0.6, AST 29, ALT 20, Alkaline Phosphatase 79, Troponin I < 0.01, Total Protein 7.6, Albumin 4.5, Globulin 3.1, Albumin/Globulin Ratio 1.5 06/23/25 14:30 06/23/25 14:30 Response Orders (Tests/Meds): ED MEDICATIONS Discontinued Medications Generic Name Dose Route Start Last Admin Trade Name Freq PRN Reason Stop Dose Admin Nitroglycerin 0.4 mg 06/23/25 14:33 Nitroglycerin 0.4mg Sl Tablet SL 06/24/25 14:33 [id number] PRN Chest Pain ORDERS Category Date Time Status XR chest portable Stat Exams 06/23/25 14:33 Taken Complete Blood Count Auto Diff Stat Lab 06/23/25 14:30 Completed Comprehensive Metabolic Panel Stat Lab 06/23/25 14:30 Completed Troponin I Stat Lab 06/23/25 14:30 Completed MDM Narrative Medical Decision Narrative: In summary patient is a pleasant 49-year-old male who presents to the emergency department for evaluation of chest wall pain and newly inserted pacemaker. Patient is hemodynamically stable upon arrival, afebrile. Patient's physical exam is only remarkable for bloody dressing and bandage in the left upper chest from yesterday's pacemaker insertion and gauze in the epigastric area and with blood tinge where loop recorder had been previously placed. Otherwise patient is alert and oriented, nontoxic and afebrile, ambulatory with GCS 15. Differential diagnosis includes pacemaker lead displacement, ACS, electrolyte derangement. Initial workup will be conducted with EKG, pacemaker interrogation, chest x-ray, and lab. No interventions performed during ED course; patient's dressing and bandage from pacemaker insertion was replaced. Initial workup reviewed by me shows unremarkable lab results with EKG appearing unchanged from previous and chest x-ray looking like the pacemaker leads had not shifted from when they were inserted. Upon repeat evaluation pacemaker company reports normal function and unremarkable rhythm and cardiology PA agree. Given this, patient is stable for discharge. He will be given Robaxin for any additional chest wall pain or muscle spasms. He is also encouraged to keep regular follow-ups with cardiology and primary care. Patient verbalizes understanding of and is amenable to these plans. Return precautions discussed at bedside and in discharge instructions.. I informally interpreted the patient's chest x-ray as unchanged from previous with no movement of pacemaker leads. Serial EKGs considered when patient was having any discomfort at all but he experienced no symptoms during ED course.
--- NOTE | 2025-06-23 14:27 | ECG_ITS ---
APPROVED REPORT Exam: Resting ECG HR:69 bpm ECG Measurements Heart Rate 69 AXES DC 153 P 75 QRSd 77 QRS 66 QT 375 T 55 QTc 395 Conclusion ELECTRONIC ATRIAL PACEMAKER ABNORMAL RHYTHM ECG Electronically signed by : LIBORIO VILLAVICENCIO, 06/24/2025 14:06:26
[2025-06-23 14:31] VITALS: BP 133/93; PULSE 70; RESP 18; TEMP 36.7; O2SAT 98; BMI 19.9
--- OUTSIDE RECORDS SUMMARY | 2025-06-23 14:31 | XMS_ITS | Encounter Summary ---
Author Organization [place] [address] Care Team Providers Care Java J2Ee Application Developer Name Role Phone David Kaur Primary Care Provider [phone] Haim Howell MD Unavailable [phone] Encounter Details Date Type Department Care Team (Late st Contact Info) Description 09/20/2015 Orders Only [facility] Arrhythmia Ctr Edg [address] [facility] [address] [place] [phone] Haim Howell MD [address] [place], [place] [id number] Social History Tobacco Use Types Packs/Day Years [...] CATH ORDERABLES Final Result Performing Organization Address City/State/[facility] Co de Phone Number [facility] [address] [place] [address] documented in this encounter Visit Diagnoses Not on filedocumented in this encounter Care Teams Java J2Ee Application Developer Relationship Specialty Start Date End Date David Kaur [address] [place] [facility] [address] [address] [facility] [address] PCP - General Family Medicine 11/07/12 Haim Howell MD [address] [place] [address] Internal Medicine - Clinical Cardiac Electrophysiology 05/20/17 documented as of this encounter
--- OUTSIDE RECORDS SUMMARY | 2025-06-23 14:31 | XMS_ITS | Encounter Summary ---
Author Organization [place] [address] Care Team Providers Care Food And Beverage Director Name Role Phone David Kaur Primary Care Provider Haim Howell MD Unavailable [phone] Encounter Details Date Type Department Care Team (Late st Contact Info) Description 05/02/2015 Orders Only SEP Arrhythmia Ctr Edg [address] [facility] [address] [place] [phone] Haim Howell MD [address] [place] [address] Social History Tobacco Use Types Packs/Day Years [...] Edited Result - Final [facility] 1 [place] [address] documented in this encounter Visit Diagnoses Not on filedocumented in this encounter Care Teams Food And Beverage Director Relationship Specialty Start Date End Date David Kaur [address] [place] [facility] [address] [place] [address] PCP - General Family Medicine 11/07/12 Haim Howell MD [address] [place] [address] Internal Medicine - Clinical Cardiac Electrophysiology 05/20/17 documented as of this encounter
--- OUTSIDE RECORDS SUMMARY | 2025-06-23 14:31 | XMS_ITS | Encounter Summary ---
Author Organization [place] [address] Care Team Providers Care Cosmetic Consultant Name Role Phone David Kaur Primary Care Provider [phone] Haim Howell MD Unavailable [phone] Encounter Details Date Type Department Care Team (Late st Contact Info) Description 01/11/2016 Orders Only SEP Arrhythmia Ctr Edg [address] [facility] [address] [place] [phone] Haim Howell MD [address] [place], [place] [id number] Social History Tobacco Use Types Packs/Day Years [...] [place] Co de Phone Number [facility] [address] [place] [address] documented in this encounter Visit Diagnoses Not on filedocumented in this encounter Care Teams Cosmetic Consultant Relationship Specialty Start Date End Date David Kaur [address] [facility] [address] [facility] [place] [address] PCP - General Family Medicine 11/07/12 Haim Howell MD [address] [place] [address] Internal Medicine - Clinical Cardiac Electrophysiology 05/20/17 documented as of this encounter
--- OUTSIDE RECORDS SUMMARY | 2025-06-23 14:31 | XMS_ITS | Clinical Summary ---
Author Organization [facility] Address One [facility] [place] [address] Phone Care Team Providers Care Storage Receipt Poster Name Role Phone David Kaur Primary Care Provider Haim Howell MD Unavailable [phone] Allergies No known active allergies Medications No [...] patient's age to complete this topic Insurance [facility] [address] [facility] [address] Advance Directives For more information, please contact: [phone] * Full Code (Latest Code Status on File) Date Activated Date Inactivated Comments 06/19/2015 11:11 AM 06/19/2015 4:51 PM Care Teams Storage Receipt Poster Relationship Specialty Start Date End Date David Kaur [address] [place] [address] PCP - General Family Medicine 11/07/12 Haim Howell MD [address] [place] [address] [place] [address] Internal Medicine - Clinical Cardiac Electrophysiology 05/20/17
--- OUTSIDE RECORDS SUMMARY | 2025-06-23 14:31 | XMS_ITS | Encounter Summary ---
Author Organization [place] [address] Care Team Providers Care Java Consultant Name Role Phone David Kaur Primary Care Provider Haim Howell MD Unavailable [phone] Encounter Details Date Type Department Care Team (Late st Contact Info) Description 02/07/2015 Orders Only SEP Arrhythmia Ctr Edg [address] [facility] [address] [place] [phone] Haim Howell MD [address] [place] [address] Social History Tobacco Use Types Packs/Day Years [...] CATH ORDERABLES Final Result [facility] 1 [place] [address] documented in this encounter Visit Diagnoses Not on filedocumented in this encounter Care Teams Java Consultant Relationship Specialty Start Date End Date David Kaur [address] [facility] [address] [place] [address] PCP - General Family Medicine 11/07/12 Haim Howell MD [address] [facility] [place] [address] Internal Medicine - Clinical Cardiac Electrophysiology 05/20/17 documented as of this encounter
--- OUTSIDE RECORDS SUMMARY | 2025-06-23 14:31 | XMS_ITS | Clinical Summary ---
Author Organization [place] Address [address] [place] [address] Care Team Providers Care Route Process Administrator Name Role Phone Gen, Non Staff Referal [...] therelease of HIV test results or diagnoses. [id number] Allergies No known active allergies Medications [...] Insurance [employer] Care Teams Route Process Administrator Relationship Specialty Start Date End Date Gen, Non Staff Referal Provider [address] [place] [address] PCP - General 01/10/17
--- NOTE | 2025-06-23 14:33 | XR_ITS ---
FINAL REPORT CLINICAL HISTORY: New pacemaker placement; L chest tightness COMPARISON: 06/22/2025 FINDINGS: A portable view of the chest was obtained. Cardiac and mediastinal silhouettes are within normal limits. Left-sided pacemaker is identified. The lungs are clear. There is no pleural effusion or pneumothorax. IMPRESSION: No acute process on this portable exam. Reviewed, Interpreted and Dictated by Cris Alejandro MD Transcribed by Radha Tobin Authenticated and [facility]
[2025-06-23 14:39] LABS: Hematocrit 44.2 % (42.0-52.0); Hemoglobin 14.5 g/dL (14.1-18.0); Immature Granulocytes % 0.3 %; Mean Corpuscular HGB Conc 32.8 g/dL (31.8-35.4); Mean Corpuscular Hemoglobin 28.7 pg (27.0-31.2); Mean Corpuscular Volume 87.4 fl (80-94); Nucleated Red Blood Cells % 0 %; Platelet Count 314 K/mm3 (142-424); Red Blood Count 5.06 M/mm3 (4.60-6.20); Red Cell Distribution Width-SD 42.1 fL; White Blood Count 10.9 K/mm3 (4.8-10.8)
[2025-06-23 14:48] LABS: Alanine Aminotransferase 20 U/L (12-78); Albumin Level 4.5 g/dl (3.5-5.0); Albumin/Globulin Ratio 1.5 (1.1-1.8); Alkaline Phosphatase 79 U/L (38-126); Anion Gap 7.4 mEq/L (5-15); Aspartate Amino Transferase 29 U/L (17-59); Bilirubin,Total 0.6 mg/dl (0.2-1.3); Blood Urea Nitrogen 15 mg/dl (9-20); Calcium 9.4 mg/dl (8.4-10.2); Carbon Dioxide 28 mmol/L (22.0-30.0); Chloride 103 mmol/L (98-107); Creatinine Clearance Estimated 79 mL/min (50-200); Creatinine,Serum 1.00 mg/dl (0.66-1.25); Estimated Glomerular Filt Rate 80 ml/min (>60); GFR (African American) 97 ML/MIN (>60); Globulin 3.1 g/dL (1.3-3.2); Glucose 104 mg/dl (74-100); Potassium 4.4 mmoL/L (3.5-5.1); Sodium 134 mmol/L (136-145); Total Protein,Serum 7.6 g/dl (6.3-8.2)
--- NOTE | 2025-06-23 14:49 | PC.NURSE ---
Jaime Kaiser at bedside.
[2025-06-23 15:00] LABS: Troponin I < 0.01 ng/ml (0.00-0.034)
--- NOTE | 2025-06-23 15:06 | EXP.CARD.CON ---
History of Present Illness History of Present Illness Consult date: 06/23/25 Consult reason: known to you Chief complaint: pacemaker shock History of present illness: 49-year-old white male established patient of our practice with history of sick sinus syndrome status post dual-chamber pacemaker implant yesterday. Patient's called the office today and states his device has shocked him 3 times and he has condensation under his bandage and he is feeling poorly. I advised to present to the emergency room for evaluation. He has a dual-chamber pacemaker and should not be receiving any shocks. I am seeing patient in ER bed 2 and he is in no distress sitting upright. States overall he has felt much better since pacemaker was implanted and at this point he thinks maybe he was not receiving a shock but really just some discomfort under the bandage. [facility] Disclaimer: The information contained in this section may have been updated after the patient was seen, as this information can be updated by other users. Medical History Edema Dyspnea PFO (patent foramen ovale) Tobacco abuse Surgical History History of loop recorder History of surgery H/O foot surgery Family History Other Heart disease Social History Smoking Status: Current every day smoker tobacco type: cigarettes packs per day: 1 years smoked: 30 second hand exposure: No alcohol intake: never counseling provided: none substance use type: denies use current occupational status: employed Travel in the last 8 weeks?: Inside the [place] household members: family housing: house current occupation: farm and factory work current occupational exposures/hazards: No caffeine: Yes Have you lived/traveled outside US in past 30 days?: No Contact w/someone who lives/traveled outside US past 30 days?: No Exposure to someone with infectious disease in past 14 days?: No Do you have a fever (greater than 100.4 F or 38 C)?: No Have you tested positive for COVID-19?: No Exposed to someone with COVID-19 in past 14 days?: No Do you have a sore throat?: No Do you have a cough?: No Do you have any weakness?: No Do you have any diarrhea?: No Are you experiencing any unusual bleeding?: No Do you have any muscle aches/pain?: No Do you have any abdominal pain?: No Are you experiencing loss of taste or smell?: No Exam Data for Last 24 hours Vital signs and Labs for Last 24 Hours: Temp Pulse Resp BP Pulse Ox O2 Del Method 98.0 F 70 18 133/93 H 98 Room Air 06/23/25 14:31 06/23/25 14:31 06/23/25 14:31 06/23/25 14:31 06/23/25 14:31 06/23/25 14:31 Laboratory Results - last 24 hr 06/23/25 14:30: WBC 10.9 H D, RBC 5.06, Hgb 14.5, Hct 44.2, MCV 87.4, MCH 28.7, MCHC 32.8, RDW 13.1, Plt Count 314, MPV 8.6, Neut % (Auto) 63.3, Lymph % (Auto) 27.1, [place] % (Auto) 7.2, Eos % (Auto) 1.6, Baso % (Auto) 0.5, Neut # (Auto) 6.9, Lymph # (Auto) 3.0, [place] # (Auto) 0.8, Eos # (Auto) 0.2, Baso # (Auto) 0.1, Sodium 134 L, Potassium 4.4, Chloride 103, Carbon Dioxide 28, Anion Gap 7.4, BUN 15 D, Creatinine 1.00, Estimated Creat Clear 79, Estimated GFR 80, Est GFR ( Amer) 97, Glucose 104 H, Calcium 9.4, Total Bilirubin 0.6, AST 29, ALT 20, Alkaline Phosphatase 79, Troponin I < 0.01, Total Protein 7.6, Albumin 4.5, Globulin 3.1, Albumin/Globulin Ratio 1.5 I & O for Last 24 hours: Intake & Output 06/20/25 06/21/25 06/22/25 06/23/25 23:59 23:59 23:59 23:59 Weight 135 lb Constitutional Constitutional: no acute distress and cooperative *Routine HEENT Exam Eye: Present PERRL *Routine Respiratory Exam Respiratory: Present CTA bilaterally; Absent accessory muscle use, wheezes or crackles *Routine Cardiovascular Exam Cardiovascular: Present RRR, Normal S1 and Normal S2; Absent murmur, gallop or rubs Comments: Left upper chest pacemaker site looks excellent for 1 day postop. There is a slightly bloody gauze pad under a clear Tegaderm. Due to the way the Tegaderm was placed there is some moisture which is trapped under the bandage. There is no surrounding erythema, edema, ecchymosis. *Routine Abdominal Exam Abdominal: Present soft; Absent tenderness *Routine Extremities Exam Extremities: Present pulses intact; Absent cyanosis or edema *Routine Skin Exam Skin: Present intact; Absent erythema or wounds *Routine Neurological Exam Neurological: Present alert and oriented X3 Routine Psychiatric Exam Psychiatric: Present cooperative Meds Home Medications and Allergies Home Medications ?Medication ?Instructions ?Recorded ?Confirmed ?Type aspirin 81 mg tablet 81 mg PO DAILY #30 tabs 05/18/25 06/16/25 Rx nebivolol 10 mg tablet (Bystolic) 10 mg PO DAILY #30 tabs 06/22/25 Rx New Prescriptions to Start Prescriptions: Allergies Allergy/AdvReac Type Severity Reaction Status Date / Time No Known Allergies Allergy Verified 06/16/25 11:02 Assessment and Plan *Assessment and plan (1) Tachy-maryann syndrome: Status: Acute Category: Medical Code(s): I49.5 - Sick sinus syndrome (2) History of pacemaker: Status: Acute Category: Medical Code(s): Z95.0 - Presence of cardiac pacemaker (3) Encounter for wound re-check: Status: Acute Category: Medical Code(s): Z51.89 - Encounter for other specified aftercare Plan Chest Pain - Patient's wound looks excellent for postop day 1, I have asked ER to rebandage - Will check chest x-ray and pacemaker download to ensure proper functionality and placement - It appears patient is likely feeling standard postoperative discomfort and is not actually receiving any abnormal shocks from his device. Further plans pending test results. *If his chest x-ray and device download are normal he can be discharged home in stable condition and follow-up in the clinic as previously scheduled. Addendum: Pacemaker interrogation normal, no alerts or arrhythmias. Chest x-ray normal. Patient to be discharged home in stable condition and follow-up in the office as previously scheduled.
[2025-06-23 16:26] VITALS: BP 127/88; PULSE 70; RESP 16; TEMP 36.6; O2SAT 97
== END 2025-06-23 16:28 | disposition home or self-care (01) ==
PROVIDERS: Physician Assistant; Emergency Provider Student in an Organized Health Care Education/Training Program; PCP Family Medicine
DX: R07.89 Other chest pain (principal); Z48.01 Encounter for change or removal of surgical wound dressing; Z95.0 Presence of cardiac pacemaker; F17.210 Nicotine dependence, cigarettes, uncomplicated; Z79.82 Long term (current) use of aspirin; Z79.899 Other long term (current) drug therapy; Z82.49 Family history of ischemic heart disease and other diseases of the circulatory system
CPT/HCPCS: 71045; 80053; 84484; 85025; 93005; 99284